=== PATIENT | female | born 1995 | race Caucasian/White ===

== ENCOUNTER 2017-01-28 14:36 | Inpatient (IN) | payer OTHER ==
[2017-01-28 21:45] VITALS: BMI 30.9
--- NOTE | 2017-01-28 22:08 | HP ---
CIWA Score - CIWA Score Nausea/Vomitin Muscle Tremors: 4-Moderate,w/Arms Extend Anxiety: 4-Mod. Anxious/Guarded Agitation: 4-Moderately Restless Paroxysmal Sweats: 3 Orientation: 1-Uncertain about Date Tacttile Disturbances: 3-Moderate Itch/Numb/Burn Auditory Disturbances: 2-Mild Harshness/Frighten Visual Disturbances: 2-Mild Sensitivity Headache: 3-Moderate CIWA-Ar Total Score: 29 Admission ROS BHS - HPI Chief Complaint: SEEKING DETOX TXMENT FOR BENZO DEPENDENCE Allergies/Adverse Reactions: Allergies Allergy/AdvReac Type Severity Reaction Status Date / Time No Known Allergies Allergy Verified 01/26/16 21:05 History of Present Illness: 22 Y.O FEMALE KNOW TO [facility] MMTP ADMITTED FOR DETOX TXMENT FOR XANAX DEPENDENCE. CLIENT IS PRESENTLY ON METHADONE 130 MG DAILY. LDM TODAY. Exam Limitations: No Limitations - Ebola screening Have you traveled outside of the country in the last 21 days: No Have you had contact with anyone from an Ebola affected area: No Have you been sick,other than usual withdrawal symptoms: No Do you have a fever: No - Review of Systems Constitutional: Chills, Malaise, Night Sweats, Changes in sleep EENT: reports: Dental Problems (BLEEDING GUMS) Respiratory: reports: No Symptoms reported Cardiac: reports: No Symptoms Reported GI: reports: Nausea : reports: No Symptoms Reported Musculoskeletal: reports: Joint Pain Integumentary: reports: No Symptoms Reported Neuro: reports: No Symptoms reported Endocrine: reports: No Symptoms Reported Hematology: reports: No Symptoms Reported Psychiatric: reports: Anxious, Depressed Other Systems: Reviewed and Negative Patient History - Patient Medical History Hx Anemia: No Hx Asthma: No Hx Chronic Obstructive Pulmonary Disease (COPD): No Hx Cancer: No Hx Cardiac Disorders: No Hx Congestive Heart Failure: No Hx Hypertension: No Hx Hypercholesterolemia: No Hx Pacemaker: No HX Cerebrovascular Accident: No Hx Seizures: No Hx Dementia: No Hx Diabetes: No Hx Gastrointestinal Disorders: No Hx Liver Disease: No Hx Genitourinary Disorders: No Hx Sexually Transmitted Disorders: No Hx Renal Disease (ESRD): No Hx Thyroid Disease: Yes (discontinued synthroid) Hx Human Immunodeficiency Virus (HIV): No Hx Hepatitis C: No Hx Depression: Yes Hx Suicide Attempt: No Hx Bipolar Disorder: No Hx Schizophrenia: No Other Medical History: ANXIETY - Patient Surgical History Past Surgical History: No Hx Neurologic Surgery: No Hx Cataract Extraction: No Hx Cardiac Surgery: No Hx Lung Surgery: No Hx Breast Surgery: No Hx Breast Biopsy: No Hx Abdominal Surgery: Yes (Gastric bypass in 2010) Hx Appendectomy: No Hx Cholecystectomy: No Hx Genitourinary Surgery: No Hx Section: No Hx Orthopedic Surgery: No Other Surgical History: Pt had excess skin removed from arms abd and breast., tonsylectomy Anesthesia Reaction: No - PPD History Previous Implant?: Yes Documented Results: Negative w/proof Implanted On Prior [facility] Admission?: Yes Date: 12/28/15 Results: 0 mm PPD to be Administered?: Yes - Reproductive History Patient is a Female of Child Bearing Age (11 -55 yrs old): Yes Last Menstrual Period: 06/29/16 [place] : [place] [facility] [place] - Smoking Cessation Smoking history: Current every day smoker Have you smoked in the past 12 months: Yes Aproximately how many cigarettes per day: 20 Cigars Per Day: 0 Hx Chewing Tobacco Use: No Initiated information on smoking cessation: Yes 'Breaking Loose' booklet given: 01/28/17 - Substance & Tx. History Hx Alcohol Use: No Hx Substance Use: Yes Substance Use Type: Marijuana, Tranquilizers (XANAX) Hx Substance Use Treatment: Yes ("[facility] [place]") - Substances Abused XANAX/ VALIUM Route: Oral Frequency: Daily Amount used: 20MG Age of first use: 20 Date of Last Use: 01/28/17 THC Route: Smoking Frequency: 1-2 times per week Amount used: 1 JOINT Age of first use: 17 Date of Last Use: 12/29/16 Family Disease History - Family Disease History Family Disease History: Diabetes: Grandparent, Father, Other: Mother (etoh/ BENZO) Admission Physical Exam BHS - Vital Signs Vital Signs: Vital Signs - 24 hr 01/28/17 21:36 Temperature 97.0 F L Pulse Rate 99 H Respiratory 20 Rate Blood Pressure 108/70 - Physical General Appearance: Yes: Appropriately Dressed, Mild Distress HEENTM: Yes: EOMI, Normocephalic, Normal Voice, Pharynx Normal Respiratory: Yes: Chest Non-Tender, Lungs Clear, Normal Breath Sounds, No Respiratory Distress, No Accessory Muscle Use Neck: Yes: No masses,lesions,Nodules, Supple, Trachea in good position Breast: Yes: Breast Exam Deferred Cardiology: Yes: Regular Rhythm, Regular Rate, S1, S2 Abdominal: Yes: Normal Bowel Sounds, Non Tender, Soft Genitourinary: Yes: Within Normal Limits Back: Yes: Normal Inspection Musculoskeletal: Yes: full range of Motion, Gait Steady, Other (C/O L KNEE PAIN S/P FALL 2 DAYS AGO) Extremities: Yes: Normal Capillary Refill, Normal Range of Motion, Non-Tender, Tremors Neurological: Yes: Alert, Motor Strength 5/5 Integumentary: Yes: Normal Color, Warm, Moist Lymphatic: Yes: Within Normal Limits - Diagnostic (1) Cannabis abuse Current Visit: Yes Status: Chronic (2) Nicotine dependence Current Visit: Yes Status: Chronic Qualifiers: Nicotine product type: cigarettes Substance use status: uncomplicated Qualified Code(s): F17.210 - Nicotine dependence, cigarettes, uncomplicated (3) Methadone maintenance therapy patient Current Visit: Yes Status: Chronic (4) Sedative, hypnotic or anxiolytic dependence with withdrawal, uncomplicated Current Visit: Yes Status: Chronic Cleared for Admission [facility] - Detox or Rehab [facility] Level of Care: Medically Managed Detox Regimen/Protocol: Librium [facility] Breath Alcohol Content Breath Alcohol Content: 0 Urine Pregancy Test - Result Urine Test Results: Negative- NO Line Present Urine Drug Screen - Results Urine Drug Screen Results: THC-Marijuana, BZO-Benzodiazepines, MTD-Methadone, TCA-Tricyclic Antidepress
[2017-01-28] MEDS ORDERED: guaiFENesin/D-METHORPHAN HB 10 ML UNIT-DOSE CUPS PO PRN (22:23)
[2017-01-28] MEDS ORDERED: IBUPROFEN 400 MG TABLET (FP) PO PRN (22:23)
[2017-01-28] MEDS ORDERED: MAGNESIUM HYDROX 2400MG/30ML ORAL SUSPENSION 30 ML CUP PO PRN (22:23)
[2017-01-28] MEDS ORDERED: MENTHOL/PHENOL 1 EACH UD MM PRN (22:23)
[2017-01-28] MEDS ORDERED: MAGNESIUM CITRATE 300 ML BOTTLE PO PRN (22:23)
[2017-01-28] MEDS ORDERED: P-EPHED 60MG/TRIPROLIDI 2.5MG TABLET PO PRN (22:23)
[2017-01-28] MEDS ORDERED: chlordiazePOXIDE HCL 25 MG CAPSULE PO PRN (22:23)
[2017-01-28] MEDS ORDERED: ACETAMINOPHEN 325 MG TABLET (FP) PO PRN (22:23)
[2017-01-28] MEDS ORDERED: MAG HYDROX/AL HYDROX/SIMETH 30 ML UNIT-DOSE CUP PO PRN (22:23)
[2017-01-28] MEDS ORDERED: LOPERAMIDE HCL 2 MG CAPSULE PO PRN (22:23)
[2017-01-28] MEDS ORDERED: diphenhydrAMINE HCL 50 MG CAPSULE PO PRN (22:23)
[2017-01-28] MEDS ORDERED: NICOTINE POLACRILEX 4 MG GUM BC PRN (22:23)
[2017-01-28] MEDS: chlordiazePOXIDE HCL 25 MG CAPSULE PO SCH (23:21)
[2017-01-28 23:26] LABS: URINE APPEARANCE CLEAR; URINE BILIRUBIN NEGATIVE (NEGATIVE); URINE BLOOD NEGATIVE (NEGATIVE); URINE COLOR YELLOW; URINE GLUCOSE (UA) NEGATIVE (NEGATIVE); URINE KETONE TRACE (NEGATIVE); URINE LEUK ESTERASE TRACE (NEGATIVE); URINE NITRITE NEGATIVE (NEGATIVE); URINE PROTEIN NEGATIVE (NEGATIVE); URINE UROBILINOGEN NEGATIVE E.U./dl (0.2-1.0)
[2017-01-28 23:28] LABS: URINE HYALINE CAST 13 /lpf; URINE MUCUS MANY; URINE RBC 3 /hpf (0-3); URINE WBC 5 /hpf (3-5)
[2017-01-29] MEDS: chlordiazePOXIDE HCL 25 MG CAPSULE PO SCH ×4 (06:29→22:24)
[2017-01-29] MEDS ORDERED: METHADONE HCL 10 MG TABLET PO ONE (09:06)
--- NOTE | 2017-01-29 09:08 | CONSULT ---
[facility] Psychiatric Consult - Data Date of interview: 01/29/17 Admission source: [facility] Identifying data: This is 22 years old female with psychiatric hospitalization history intoxicated with: Alcohol, Opioids, Xanax, Cannabis and Nicoptine Substance Abuse History: - Results. Urine Drug Screen Results: THC-Marijuana, BZO-Benzodiazepines, MTD-Methadone, TCA-Tricyclic Antidepress- Smoking Cessation. Smoking history: Current every day smoker. Have you smoked in the past 12 months: Yes. Aproximately how many cigarettes per day: 20. Cigars Per Day: 0. Hx Chewing Tobacco Use: No. Initiated information on smoking cessation : Yes. 'Breaking Loose' booklet given: 01/28/17. - Substance & Tx. History. Hx Alcohol Use: No. Hx Substance Use: Yes. Substance Use Type: Marijuana, Tranquilizers (XANAX). Hx Substance Use Treatment: Yes ("[facility]"). - Substances Abused. XANAX/ VALIUM. Route: Oral. Frequency: Daily. Amount used: 20MG. Age of first use: 20. Date of Last Use: 01/28/17. THC. Route : Smoking. Frequency: 1-2 times per week. Amount used: 1 JOINT. Age of first use: 17. Date of Last Use: 12/29/16 Medical History: Gastritis, MMTP 400mg per day Psychiatric History: Patient reportws history of Anxiety, Depression, Panic disorder, Personality disorder as well, reports most recent psychiatric admsision on 2017 at [facility] fro safety, reports taking prior to admsision: Seroquel 200mg po qhs. Zoloft 100mg po qhs. Trazodone 100 poqhs. Remeron 45mg po qhs Physical/Sexual Abuse/Trauma History: Denies Additional Comment: - Results. Urine Drug Screen Results: THC-Marijuana, BZO- Benzodiazepines, MTD-Methadone, TCA-Tricyclic Antidepress Mental Status Exam - Mental Status Exam Alert and Oriented to: Person Cognitive Function: Fair Patient Appearance: Unkempt Mood: Sad Affect: Flat Patient Behavior: Sedated Speech Pattern: Delayed Voice Loudness: Mildly Soft/Quiet Thought Process: Circumstantial Thought Disorder: Being Controlled Hallucinations: Denies Suicidal Ideation: Denies Homicidal Ideation: Denies Insight/Judgement: Fair Sleep: Difficulty falling asleep Appetite: Weight gain Muscle strength/Tone: Mild Hypotonicity Gait/Station: Shuffling Additional Comments: Seroquel 200mg po qhs. Zoloft 100mg po qhs. Trazodone 100 poqhs. Remeron 45mg po qhs Psychiatric Findings - Problem List ([place] 1, 2,3) (1) Cannabis abuse Current Visit: Yes Status: Chronic (2) Methadone maintenance therapy patient Current Visit: Yes Status: Chronic (3) Nicotine dependence Current Visit: Yes Status: Chronic Qualifiers: Nicotine product type: cigarettes Substance use status: uncomplicated Qualified Code(s): F17.210 - Nicotine dependence, cigarettes, uncomplicated (4) Sedative, hypnotic or anxiolytic dependence with withdrawal, uncomplicated Current Visit: Yes Status: Chronic (5) Alcohol dependence with uncomplicated withdrawal Current Visit: No Status: Chronic (6) Anxiety and depression Current Visit: No Status: Chronic (7) H/O gastric bypass Current Visit: No Status: Chronic (8) Opioid dependence with withdrawal Current Visit: No Status: Chronic (9) Panic attacks Current Visit: No Status: Chronic (10) Sedative, hypnotic, or anxiolytic withdrawal Current Visit: No Status: Chronic (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 Current Visit: No Status: Chronic (12) Substance-induced sleep disorder Current Visit: No Status: Chronic (13) Personality disorder Current Visit: No Status: Suspected (14) Drug-induced mood disorder Current Visit: Yes Status: Acute - Initial Treatment Plan Initial Treatment Plan: Seroquel 200mg po qhs. Zoloft 100mg po qhs. Trazodone 100 poqhs. Remeron 45mg po qhs
[2017-01-29] MEDS ORDERED: METHADONE 80 MG, METHADONE 20 MG PO ONE (09:20)
[2017-01-29] MEDS ORDERED: METHADONE HCL 40 MG DISPERSABLE TABLET ONE (09:38)
[2017-01-29] MEDS ORDERED: METHADONE HCL 10 MG TABLET ONE (09:39)
[2017-01-29 10:06] LABS: MEAN CELL VOLUME 78.7 fl (80-96); MEAN PLT VOLUME 7.6 fl (7.5-11.1); PLATELET COUNT 234 K/MM3 (134-434); RDW 17.7 % (11.6-15.6)
[2017-01-29 10:14] LABS: ALBUMIN 3.2 g/dl (3.4-5.0); ALK PHOS 64 U/L (45-117); ANION GAP 6 (8-16); BILIRUBIN,TOTAL 0.2 mg/dL (0.2-1.0); CALCIUM 8.4 mg/dL (8.5-10.1); CO2 30 mmol/L (21-32); COCKROFT - GAULT 161.1005; CREATININE 0.7 mg/dL (0.55-1.02); GLUCOSE,RANDOM 83 mg/dL (74-106); SGOT/AST 16 U/L (15-37); SGPT/ALT 18 U/L (12-78)
[2017-01-29] MEDS: PRENATAL VITAMINS W/ FOLIC ACID TABLET (FP) PO SCH (10:17)
[2017-01-29] MEDS: NICOTINE 21 MG/24 HOURS TOPICAL PATCH TD SCH (10:18)
[2017-01-29] MEDS ORDERED: ONDANSETRON *ODT* 4 MG TABLET SL PRN (11:23)
--- NOTE | 2017-01-29 11:23 | PN ---
S CIWA - CIWA Score Nausea/Vomitin-Mild Nausea/No Vomiting Muscle Tremors: 4-Moderate,w/Arms Extend Anxiety: 3 Agitation: 4-Moderately Restless Paroxysmal Sweats: 3 Orientation: 0-Oriented Tacttile Disturbances: 0-None Auditory Disturbances: 0-None Visual Disturbances: 0-None Headache: 1-Very Mild CIWA-Ar Total Score: 16 BHS Progress Note (SOAP) Subjective: body aches left knee pain sweats irritable agitation nausea Objective: 01/29/17 11:21 Vital Signs Temperature 98.2 F 01/29/17 09:44 Pulse Rate 79 01/29/17 09:44 Respiratory Rate 16 01/29/17 09:44 Blood Pressure 121/57 01/29/17 09:44 O2 Sat by Pulse Oximetry (%) Laboratory Tests 01/28/17 01/29/17 01/29/17 23:10 07:00 07:00 WBC 6.0 RBC 3.66 D Hgb 9.5 L D Hct 28.8 L D MCV 78.7 L MCHC 33.0 RDW 17.7 H Plt Count 234 D MPV 7.6 Sodium 142 Potassium 4.1 Chloride 106 Carbon Dioxide 30 Anion Gap 6 L BUN 16 Creatinine 0.7 Creat Clearance w eGFR > 60 Random Glucose 83 Calcium 8.4 L Total Bilirubin 0.2 D AST 16 D ALT 18 Alkaline Phosphatase 64 Total Protein 6.0 L D Albumin 3.2 L D Urine Color Yellow Urine Appearance Clear Urine pH 5.0 D Ur Specific [place] >= 1.030 H Urine Protein Negative Urine Glucose (UA) Negative Urine Ketones Trace H Urine Blood Negative Urine Nitrite Negative Urine Bilirubin Negative Urine Urobilinogen Negative Ur Leukocyte Esterase Trace H Urine RBC 3 Urine WBC 5 Ur Epithelial Cells Rare Hyaline Casts 13 Urine Mucus Many awake/alert ambulating no acute distress Assessment: 01/29/17 11:22 withdrawal sx Plan: continue detox increase fluids flexiril prn analgesic balm f/u knee x-ray. katja velazquez
[2017-01-29] MEDS: CYCLOBENZAPRINE HCL 10 MG TABLET (FP) PO PRN ×2 (12:05→21:41)
[2017-01-29] MEDS: hydrOXYzine PAMOATE 50 MG CAPSULE (FP) PO PRN (12:05)
[2017-01-29] MEDS: METHYL SALICYLATE/MENTHOL OINT 30 GM TUBE TP SCH ×2 (12:27→22:24)
--- NOTE | 2017-01-29 13:12 | EKG ---
Test Reason : Blood Pressure : / mmHG Vent. Rate : 072 BPM Atrial Rate : 072 BPM P-R Int : 154 ms QRS Dur : 086 ms QT Int : 436 ms P-R-T Axes : 033 048 045 degrees QTc Int : 477 ms NORMAL SINUS RHYTHM NORMAL ECG NO PREVIOUS ECGS AVAILABLE Confirmed by SHARON ANGELA MD ([id number]) on 01/29/2017 1:11:33 PM Referred By: Luis Vidales Confirmed By:SHARON ANGELA MD
[2017-01-29] MEDS: THIAMINE HCL 100 MG TABLET (FP) PO SCH (22:23)
[2017-01-29] MEDS: MIRTAZAPINE 15 MG TABLET (FP) PO SCH (22:23)
[2017-01-29] MEDS: traZODone HCL 100 MG TABLET (FP) PO SCH (22:24)
[2017-01-29] MEDS: SERTRALINE HCL 50 MG TABLET (FP) PO SCH (22:24)
[2017-01-29] MEDS: QUEtiapine FUMARATE 200 MG TABLET PO SCH (22:24)
[2017-01-30] MEDS ORDERED: METHADONE HCL 40 MG DISPERSABLE TABLET PO SCH (06:00)
[2017-01-30] MEDS ORDERED: METHADONE 80 MG, METHADONE 20 MG PO SCH (06:00)
[2017-01-30] MEDS ORDERED: METHADONE HCL 40 MG DISPERSABLE TABLET ONE (06:56)
[2017-01-30] MEDS ORDERED: METHADONE HCL 10 MG TABLET ONE (06:56)
[2017-01-30] MEDS: chlordiazePOXIDE HCL 25 MG CAPSULE PO SCH ×3 (06:59→17:18)
[2017-01-30] MEDS: METHADONE 80 MG, METHADONE 20 MG PO SCH (06:59)
[2017-01-30] MEDS: CYCLOBENZAPRINE HCL 10 MG TABLET (FP) PO PRN ×2 (07:10→14:05)
[2017-01-30] MEDS ORDERED: COLLOIDAL OATMEAL 1 BAR EACH TP PRN (09:46)
[2017-01-30] MEDS ORDERED: LIDOCAINE VISCOUS 2% ORAL/TOP 20 ML UNIT-DOSE CUP MM PRN (09:46)
[2017-01-30] MEDS: hydrOXYzine PAMOATE 50 MG CAPSULE (FP) PO PRN ×2 (10:32→14:04)
[2017-01-30] MEDS: PRENATAL VITAMINS W/ FOLIC ACID TABLET (FP) PO SCH (10:32)
[2017-01-30] MEDS: NICOTINE 21 MG/24 HOURS TOPICAL PATCH TD SCH (10:33)
[2017-01-30] MEDS: METHYL SALICYLATE/MENTHOL OINT 30 GM TUBE TP SCH ×2 (10:34→22:38)
--- NOTE | 2017-01-30 12:05 | PN ---
S CIWA - CIWA Score Nausea/Vomitin Muscle Tremors: 4-Moderate,w/Arms Extend Anxiety: 4-Mod. Anxious/Guarded Agitation: 3 Paroxysmal Sweats: 2 Orientation: 0-Oriented Tacttile Disturbances: 0-None Auditory Disturbances: 0-None Visual Disturbances: 2-Mild Sensitivity Headache: 2-Mild CIWA-Ar Total Score: 22 S Progress Note (SOAP) Subjective: Tremors, H/A, Vomiting, Interrupted Sleep, Body Aches, Sweating. Pt. reports discomfort on Right upper side of teeth noting a recent history of Root Canal in area. Objective: PT. A & O X 3, OBSERVED AMBULATING ON UNIT. NO REDNESS, SWELLING, DISCHARGE, OR SIGNS OF INFECTION NOTED ON RIGHT SIDE OF UPPER MOUTH OR ON FACE. CONTINUE TO MONITOR. 01/30/17 12:49 Vital Signs Temperature 96.3 F L 01/30/17 10:00 Pulse Rate 102 H 01/30/17 10:00 Respiratory Rate 20 01/30/17 10:00 Blood Pressure 109/65 01/30/17 10:00 O2 Sat by Pulse Oximetry (%) Laboratory Tests 01/28/17 01/28/17 01/29/17 07:00 23:10 07:00 WBC 6.0 RBC 3.66 D Hgb 9.5 L D Hct 28.8 L D MCV 78.7 L MCHC 33.0 RDW 17.7 H Plt Count 234 D MPV 7.6 Sodium Potassium Chloride Carbon Dioxide Anion Gap BUN Creatinine Creat Clearance w eGFR Random Glucose Calcium Total Bilirubin AST ALT Alkaline Phosphatase Total Protein Albumin Urine Color Yellow Urine Appearance Clear Urine pH 5.0 D Ur Specific [place] >= 1.030 H Urine Protein Negative Urine Glucose (UA) Negative Urine Ketones Trace H Urine Blood Negative Urine Nitrite Negative Urine Bilirubin Negative Urine Urobilinogen Negative Ur Leukocyte Esterase Trace H Urine RBC 3 Urine WBC 5 Ur Epithelial Cells Rare Hyaline Casts 13 Urine Mucus Many RPR Titer Hepatitis C Antibody <0.1 01/29/17 01/29/17 07:00 07:00 WBC RBC Hgb Hct MCV MCHC RDW Plt Count MPV Sodium 142 Potassium 4.1 Chloride 106 Carbon Dioxide 30 Anion Gap 6 L BUN 16 Creatinine 0.7 Creat Clearance w eGFR > 60 Random Glucose 83 Calcium 8.4 L Total Bilirubin 0.2 D AST 16 D ALT 18 Alkaline Phosphatase 64 Total Protein 6.0 L D Albumin 3.2 L D Urine Color Urine Appearance Urine pH Ur Specific [place] Urine Protein Urine Glucose (UA) Urine Ketones Urine Blood Urine Nitrite Urine Bilirubin Urine Urobilinogen Ur Leukocyte Esterase Urine RBC Urine WBC Ur Epithelial Cells Hyaline Casts Urine Mucus RPR Titer Nonreactive Hepatitis C Antibody LABS NOTED. 01/30/17 16:19 Assessment: 01/30/17 12:03 WITHDRAWAL SYMPTOMS. Plan: CONTINUE DETOX. FEOSOL, 325 MG, TID FOR LOW CBC VALUES. PRN ZOFRAN SL FOR VOMITING.
[2017-01-30] MEDS: FERROUS SO4 325 MG TABLET (FP) PO SCH (17:18)
[2017-01-30] MEDS: SERTRALINE HCL 50 MG TABLET (FP) PO SCH (22:34)
[2017-01-30] MEDS: THIAMINE HCL 100 MG TABLET (FP) PO SCH (22:34)
[2017-01-30] MEDS: MIRTAZAPINE 15 MG TABLET (FP) PO SCH (22:34)
[2017-01-30] MEDS: traZODone HCL 100 MG TABLET (FP) PO SCH (22:34)
[2017-01-30] MEDS: chlordiazePOXIDE 5 MG CAPSULE PO SCH (22:35)
[2017-01-30] MEDS: QUEtiapine FUMARATE 200 MG TABLET PO SCH (22:35)
[2017-01-31] MEDS ORDERED: METHADONE HCL 10 MG TABLET ONE (03:20)
[2017-01-31] MEDS ORDERED: METHADONE HCL 40 MG DISPERSABLE TABLET ONE (03:20)
[2017-01-31] MEDS: chlordiazePOXIDE 5 MG CAPSULE PO SCH ×3 (06:32→17:51)
[2017-01-31] MEDS: METHADONE 80 MG, METHADONE 20 MG PO SCH (06:34)
[2017-01-31] MEDS: CYCLOBENZAPRINE HCL 10 MG TABLET (FP) PO PRN ×2 (06:37→22:51)
[2017-01-31] MEDS: PRENATAL VITAMINS W/ FOLIC ACID TABLET (FP) PO SCH (10:38)
[2017-01-31] MEDS: hydrOXYzine PAMOATE 50 MG CAPSULE (FP) PO PRN ×2 (10:39→17:52)
[2017-01-31] MEDS: METHYL SALICYLATE/MENTHOL OINT 30 GM TUBE TP SCH ×2 (10:39→23:29)
[2017-01-31] MEDS: FERROUS SO4 325 MG TABLET (FP) PO SCH ×3 (10:39→17:51)
[2017-01-31] MEDS: NICOTINE 21 MG/24 HOURS TOPICAL PATCH TD SCH (10:40)
--- NOTE | 2017-01-31 18:32 | PN ---
BHS Progress Note (SOAP) Subjective: Tremors, H/A, Sweating, Body Aches, Stomach Cramping, Interrupted Sleep. Objective: PT. A & O X 3, OBSERVED AMBULATING ON UNIT. 01/31/17 18:29 Vital Signs Temperature 97.9 F 01/31/17 18:27 Pulse Rate 73 01/31/17 18:27 Respiratory Rate 18 01/31/17 18:27 Blood Pressure 100/60 01/31/17 18:27 O2 Sat by Pulse Oximetry (%) Laboratory Tests 01/28/17 01/28/17 01/29/17 07:00 23:10 07:00 WBC 6.0 RBC 3.66 D Hgb 9.5 L D Hct 28.8 L D MCV 78.7 L MCHC 33.0 RDW 17.7 H Plt Count 234 D MPV 7.6 Sodium Potassium Chloride Carbon Dioxide Anion Gap BUN Creatinine Creat Clearance w eGFR Random Glucose Calcium Total Bilirubin AST ALT Alkaline Phosphatase Total Protein Albumin Urine Color Yellow Urine Appearance Clear Urine pH 5.0 D Ur Specific [place] >= 1.030 H Urine Protein Negative Urine Glucose (UA) Negative Urine Ketones Trace H Urine Blood Negative Urine Nitrite Negative Urine Bilirubin Negative Urine Urobilinogen Negative Ur Leukocyte Esterase Trace H Urine RBC 3 Urine WBC 5 Ur Epithelial Cells Rare Hyaline Casts 13 Urine Mucus Many RPR Titer Hepatitis C Antibody <0.1 01/29/17 01/29/17 07:00 07:00 WBC RBC Hgb Hct MCV MCHC RDW Plt Count MPV Sodium 142 Potassium 4.1 Chloride 106 Carbon Dioxide 30 Anion Gap 6 L BUN 16 Creatinine 0.7 Creat Clearance w eGFR > 60 Random Glucose 83 Calcium 8.4 L Total Bilirubin 0.2 D AST 16 D ALT 18 Alkaline Phosphatase 64 Total Protein 6.0 L D Albumin 3.2 L D Urine Color Urine Appearance Urine pH Ur Specific [place] Urine Protein Urine Glucose (UA) Urine Ketones Urine Blood Urine Nitrite Urine Bilirubin Urine Urobilinogen Ur Leukocyte Esterase Urine RBC Urine WBC Ur Epithelial Cells Hyaline Casts Urine Mucus RPR Titer Nonreactive Hepatitis C Antibody LABS NOTED. Assessment: 01/31/17 18:31 WITHDRAWAL SYMPTOMS. Plan: CONTINUE DETOX.
[2017-01-31] MEDS: QUEtiapine FUMARATE 200 MG TABLET PO SCH (22:50)
[2017-01-31] MEDS: SERTRALINE HCL 50 MG TABLET (FP) PO SCH (22:50)
[2017-01-31] MEDS: chlordiazePOXIDE HCL 10 MG CAPSULE PO SCH (22:50)
[2017-01-31] MEDS: MIRTAZAPINE 15 MG TABLET (FP) PO SCH (22:50)
[2017-01-31] MEDS: THIAMINE HCL 100 MG TABLET (FP) PO SCH (22:50)
[2017-01-31] MEDS: traZODone HCL 100 MG TABLET (FP) PO SCH (22:50)
[2017-02-01] MEDS ORDERED: METHADONE HCL 10 MG TABLET ONE (02:30)
[2017-02-01] MEDS ORDERED: METHADONE HCL 40 MG DISPERSABLE TABLET ONE (02:30)
[2017-02-01] MEDS: chlordiazePOXIDE HCL 10 MG CAPSULE PO SCH ×2 (06:23→10:16)
[2017-02-01] MEDS: METHADONE 80 MG, METHADONE 20 MG PO SCH (06:28)
[2017-02-01] MEDS: CYCLOBENZAPRINE HCL 10 MG TABLET (FP) PO PRN (06:30)
[2017-02-01] MEDS: FERROUS SO4 325 MG TABLET (FP) PO SCH (07:10)
[2017-02-01] MEDS: hydrOXYzine PAMOATE 50 MG CAPSULE (FP) PO PRN ×2 (08:03→10:16)
[2017-02-01] MEDS: PRENATAL VITAMINS W/ FOLIC ACID TABLET (FP) PO SCH (09:57)
[2017-02-01] MEDS: METHYL SALICYLATE/MENTHOL OINT 30 GM TUBE TP SCH (10:16)
--- NOTE | 2017-02-01 10:40 | DS ---
[facility] Detox Discharge Summary Admission Date: 01/28/17 Discharge Date: 02/01/17 - History Present History: Alcohol Dependence, Cannabis Dependence, Sedative Dependence, MMTP Pertinent Past History: panic disorder Anemia - Physical Exam Results Vital Signs: Vital Signs Temperature 97.7 F 02/01/17 06:39 Pulse Rate 88 02/01/17 06:39 Respiratory Rate 18 02/01/17 06:39 Blood Pressure 120/72 02/01/17 06:39 O2 Sat by Pulse Oximetry (%) Pertinent Admission Physical Exam Findings: Withdrawal sx Laboratory Last Values WBC 6.0 K/mm3 (4.0-10.0) 01/29/17 07:00 RBC 3.66 M/mm3 (3.60-5.2) D 01/29/17 07:00 Hgb 9.5 GM/dL (10.7-15.3) L D 01/29/17 07:00 Hct 28.8 % (32.4-45.2) L D 01/29/17 07:00 MCV 78.7 fl (80-96) L 01/29/17 07:00 MCHC 33.0 g/dl (32.0-36.0) 01/29/17 07:00 RDW 17.7 % (11.6-15.6) H 01/29/17 07:00 Plt Count 234 K/MM3 (134-434) D 01/29/17 07:00 MPV 7.6 fl (7.5-11.1) 01/29/17 07:00 Sodium 142 mmol/L (136-145) 01/29/17 07:00 Potassium 4.1 mmol/L (3.5-5.1) 01/29/17 07:00 Chloride 106 mmol/L (98-107) 01/29/17 07:00 Carbon Dioxide 30 mmol/L (21-32) 01/29/17 07:00 Anion Gap 6 (8-16) L 01/29/17 07:00 BUN 16 mg/dL (7-18) 01/29/17 07:00 Creatinine 0.7 mg/dL (0.55-1.02) 01/29/17 07:00 Creat Clearance w eGFR > 60 (>60) 01/29/17 07:00 Random Glucose 83 mg/dL (74-106) 01/29/17 07:00 Calcium 8.4 mg/dL (8.5-10.1) L 01/29/17 07:00 Total Bilirubin 0.2 mg/dL (0.2-1.0) D 01/29/17 07:00 AST 16 U/L (15-37) D 01/29/17 07:00 ALT 18 U/L (12-78) 01/29/17 07:00 Alkaline Phosphatase 64 U/L (45-117) 01/29/17 07:00 Total Protein 6.0 g/dl (6.4-8.2) L D 01/29/17 07:00 Albumin 3.2 g/dl (3.4-5.0) L D 01/29/17 07:00 Urine Color Yellow 01/28/17 23:10 Urine Appearance Clear 01/28/17 23:10 Urine pH 5.0 (5.0-8.0) D 01/28/17 23:10 Ur Specific [place] >= 1.030 (1.005-1.025) H 01/28/17 23:10 Urine Protein Negative (NEGATIVE) 01/28/17 23:10 Urine Glucose (UA) Negative (NEGATIVE) 01/28/17 23:10 Urine Ketones Trace (NEGATIVE) H 01/28/17 23:10 Urine Blood Negative (NEGATIVE) 01/28/17 23:10 Urine Nitrite Negative (NEGATIVE) 01/28/17 23:10 Urine Bilirubin Negative (NEGATIVE) 01/28/17 23:10 Urine Urobilinogen Negative E.U./dl (0.2-1.0) 01/28/17 23:10 Ur Leukocyte Esterase Trace (NEGATIVE) H 01/28/17 23:10 Urine RBC 3 /hpf (0-3) 01/28/17 23:10 Urine WBC 5 /hpf (3-5) 01/28/17 23:10 Ur Epithelial Cells Rare /hpf (FEW) 01/28/17 23:10 Hyaline Casts 13 /lpf 01/28/17 23:10 Urine Mucus Many 01/28/17 23:10 RPR Titer Nonreactive (NONREACTIVE) 01/29/17 07:00 Hepatitis C Antibody <0.1 s/co ratio (0.0-0.9) 01/28/17 07:00 labs noted,on feosol - Treatment Hospital Course: Detox Protocol Followed, Detoxed Safely, Responded well, Discharged Condition Good, Rehab Referral Accepted Patient has Accepted a Rehab Referral to: [facility] - Medication Discharge Medications: Ambulatory Orders Mirtazapine [Remeron -] 45 mg PO HS #30 tablet 01/29/17 Quetiapine Fumarate [Seroquel -] 200 mg PO HS #30 tab 01/29/17 Sertraline HCl [Zoloft -] 100 mg PO HS #30 tablet 01/29/17 Trazodone HCl [Desyrel -] 100 mg PO HS #30 tablet 01/29/17 - Diagnosis (1) Drug-induced mood disorder Current Visit: Yes Status: Acute (2) Cannabis abuse Current Visit: Yes Status: Chronic (3) Methadone maintenance therapy patient Current Visit: Yes Status: Chronic (4) Nicotine dependence Current Visit: Yes Status: Chronic Qualifiers: Nicotine product type: cigarettes Substance use status: uncomplicated Qualified Code(s): F17.210 - Nicotine dependence, cigarettes, uncomplicated (5) Sedative, hypnotic or anxiolytic dependence with withdrawal, uncomplicated Current Visit: Yes Status: Chronic (6) Alcohol dependence with uncomplicated withdrawal Current Visit: Yes Status: Chronic (7) Insomnia Current Visit: Yes Status: Chronic Qualifiers: Insomnia type: unspecified Qualified Code(s): G47.00 - Insomnia, unspecified (8) Panic attacks Current Visit: No Status: Chronic (9) Sedative, hypnotic, or anxiolytic withdrawal Current Visit: Yes Status: Chronic (10) Substance-induced anxiety disorder Current Visit: No Status: Chronic (11) Substance-induced sleep disorder Current Visit: No Status: Chronic - AMA Did Patient Leave Against Medical Advice: No
[2017-02-01 11:09] VITALS: BP 119/81; PULSE 117; TEMP 98.4
[2017-02-01] MEDS: NICOTINE 21 MG/24 HOURS TOPICAL PATCH TD SCH (11:33)
== END 2017-02-01 10:16 | disposition home or self-care (01) | DRG 773 ==
LOC: YASAS 14:36 → Y6N 22:40
PROVIDERS: ADMIT Internal Medicine Addiction Medicine; ATTEND Internal Medicine Addiction Medicine
PROC: HZ2ZZZZ Detoxification Services for Substance Abuse Treatment (ICD-10-PCS; principal; 2017-01-28)
DX: F13.230 Sedative, hypnotic or anxiolytic dependence with withdrawal, uncomplicated (principal); F11.20 Opioid dependence, uncomplicated; F10.230 Alcohol dependence with withdrawal, uncomplicated; F12.10 Cannabis abuse, uncomplicated; F17.210 Nicotine dependence, cigarettes, uncomplicated; F41.8 Other specified anxiety disorders; F60.9 Personality disorder, unspecified; F41.0 Panic disorder [episodic paroxysmal anxiety]; F19.24 Other psychoactive substance dependence with psychoactive substance-induced mood disorder; F19.280 Other psychoactive substance dependence with psychoactive substance-induced anxiety disorder; F19.282 Other psychoactive substance dependence with psychoactive substance-induced sleep disorder; G47.00 Insomnia, unspecified; Z98.84 Bariatric surgery status
CPT/HCPCS: 36415; 73564-TC-LT; 80053; 81003; 81015; 85027; 86593; 86803; 93005; 93010

== ENCOUNTER 2017-03-28 11:36 | Emergency (ER) | payer SELFPAY ==
[2017-03-28 11:47] VITALS: BP 108/72; PULSE 84; TEMP 98; BMI 30.5
--- NOTE | 2017-03-28 12:35 | PDOC ---
History of Present Illness - General Chief Complaint: RX Refill Stated Complaint: MISSED DOSAGE/ PCP SENT Time Seen by Provider: 03/28/17 12:11 History Source: Patient Exam Limitations: No Limitations - History of Present Illness Initial Comments: 03/28/17 12:35 Patient belongs to the [facility] methadone maintenance program, [facility] with her very busy schedule this week missed her morning medication dispensing of methadone and clinic was closed. Patient was encouraged to come to the emergency department for medication administration. Fevers, cough, shakiness nausea vomiting. States is taking to detox from a high dose of medication status post surgery 2 years ago 03/28/17 12:37 03/28/17 14:39 Timing/Duration: unsure Associated Symptoms: reports: denies symptoms Past History - Travel Traveled outside of the country in the last 30 days: No Close contact w/someone who was outside of country & ill: No - Past Medical History Allergies/Adverse Reactions: Allergies Allergy/AdvReac Type Severity Reaction Status Date / Time NSAIDS (Non-Steroidal AdvReac Verified 03/28/17 11:39 Anti-Inflamma Home Medications: Ambulatory Orders Methadone [Dolophine -] 5 mg PO ASDIR 03/28/17 Anemia: No Asthma: No Cancer: No Cardiac Disorders: No CVA: No COPD: No CHF: No Dementia: No Diabetes: No GI Disorders: No Disorders: No HTN: No Hypercholesterolemia: No Kidney Stones: No Liver Disease: No Suicide Attempt (Hx): No Seizures: No Thyroid Disease: Yes (HYPO) - Surgical History Abdominal Surgery: Yes (Gastric bypass in 2011) Appendectomy: No Cardiac Surgery: No Cholecystectomy: No Gastric Stapling: Yes (GASTRIC SLEEVE) Lung Surgery: No Neurologic Surgery: No Orthopedic Surgery: No - Reproductive History PID: No - Psycho/Social/Smoking Cessation Hx Anxiety: Yes Suicidal Ideation: No Smoking History: Current every day smoker Have you smoked in the past 12 months: Yes Number of Cigarettes Smoked Daily: 1 Cigars Per Day: 0 Information on smoking cessation initiated: No 'Breaking Loose' booklet given: 01/28/17 Hx Alcohol Use: No Drug/Substance Use Hx: Yes Substance Use Type: Marijuana, Tranquilizers (XANAX) Hx Substance Use Treatment: Yes Review of Systems - Review of Systems Able to Perform ROS?: Yes Is the patient limited Khmer proficient: Yes Constitutional: Yes: See HPI. No: Symptoms Reported, Loss of Appetite, Malaise HEENTM: Yes: See HPI. No: Symptoms Reported Respiratory: No: Symptoms reported Musculoskeletal: Yes: Symptoms Reported, See HPI, Back Pain All Other Systems: Reviewed and Negative *Physical Exam - Vital Signs Last Vital Signs Temp Pulse Resp BP Pulse Ox 98 F 84 19 108/72 99 03/28/17 11:39 03/28/17 11:39 03/28/17 11:39 03/28/17 11:39 03/28/17 11:39 - Physical Exam General Appearance: Yes: Nourished, Appropriately Dressed. No: Apparent Distress HEENT: positive: YULISA, Normal ENT Inspection, Normal Voice, TMs Normal, Pharynx Normal Neck: positive: Supple. negative: Tender Respiratory/Chest: positive: Lungs Clear, Normal Breath Sounds Gastrointestinal/Abdominal: positive: Soft. negative: Tender Musculoskeletal: positive: Normal Inspection. negative: Vertebral Tenderness Extremity: positive: Normal Capillary Refill, Normal Inspection, Normal Range of Motion Integumentary: positive: Dry, Warm, Pale Neurologic: positive: steel pickler II-XII NML intact, Fully Oriented, Alert, Normal Mood/ Affect, Normal Response, Motor Strength 5/5 Medical Decision Making - Medical Decision Making 03/28/17 12:40 discussed case with Selam Stoner Line Helper- 03/28/17 14:02 second call to [facility] = [phone] to [facility] animal caretaker supervisor still unable to identify treatment of pateint at methadone clinic. 03/28/17 14:27 Third call, unable to speak to [facility] animal caretaker supervisor therefore we will move forward and give patient half dose requested 50 mg which has now been dispensed and given to patient. We will discuss this dosing with animal caretaker supervisor so she may document the treatment today. Reviewed necessity of patient receiving methadone at clinic to avoid any future mis management 03/28/17 14:28 03/28/17 14:59 [facility] return phone call to verify methadone. Patient has been discharged after her 50 mg dosage. [facility] animal caretaker supervisor at [facility] understands half dose was given today and will document same in clinic tomorrow morning. *DC/Admit/Observation/Transfer Diagnosis at time of Disposition: Methadone use - Discharge Dispostion Disposition: HOME Condition at time of disposition: Stable Admit: No - Referrals Referrals: Tanisha Rosario, STATION MECHANIC HELPER [Primary Care Provider] - - Patient Instructions Additional Instructions: DO NOT MISS METHADONE TREAMENT = YOU HAVE BEEN GIVEN 1/2 DOSE OF 50MG TODAY UNABLE TO VERIFY CORRECT DOING VIA METHADONE PROGRAM AT [facility] - Post Discharge Activity Work/School Note: Back to Work
[2017-03-28] MEDS ORDERED: METHADONE HCL 10 MG TABLET PO ONE ×2 (14:01→14:15)
== END 2017-03-28 14:54 | disposition home or self-care (01) ==
LOC: JERFT 11:36
DX: F11.20 Opioid dependence, uncomplicated (principal)
CPT/HCPCS: 99281-25

== ENCOUNTER 2017-05-17 22:41 | Inpatient (IN) | payer OTHER ==
--- NOTE | 2017-05-17 23:07 | HP ---
CIWA Score - CIWA Score Nausea/Vomitin-No Nausea/No Vomiting Muscle Tremors: 5 Anxiety: 4-Mod. Anxious/Guarded Agitation: 4-Moderately Restless Paroxysmal Sweats: 1-Minimal Palms Moist Orientation: 3-Disoriented Date>2 days Tacttile Disturbances: 1-Very Mild Itch/Numbness Auditory Disturbances: 0-None Visual Disturbances: 2-Mild Sensitivity Headache: 0-None Present CIWA-Ar Total Score: 20 Admission ROS BHS - HPI Chief Complaint: SEEKING DETOX FOR HEROIN/BENZO/ALCOHOLISM Allergies/Adverse Reactions: Allergies Allergy/AdvReac Type Severity Reaction Status Date / Time No Known Allergies Allergy Verified 05/18/17 01:38 History of Present Illness: 22 Y.O FEMALE KNOWN TO [facility] PRESENTS FOR DETOX FOR BENZO DEPENDENCE. SHE ALSO STATES SHE USES HEROIN BUT IS CURRENTLY ON MMTP BUT DOES NOT RECALL HER DOSAGE. ATTENDS MMTP HERE. REPORTS ALCOHOL BINGING FOR PAST 3 WEEKS. C/O TOOTH INFECTION STARTED ON AMOXICILLIN DAY 10/14. PRESENTS WITH RX BOTTLE AND REMAINDER OF PILLS. STATES LAST DETOX SERVICES 2 MONTHS AGO Exam Limitations: No Limitations - Ebola screening Have you traveled outside of the country in the last 21 days: No Have you had contact with anyone from an Ebola affected area: No Have you been sick,other than usual withdrawal symptoms: No Do you have a fever: No - Review of Systems Constitutional: Chills, Loss of Appetite, Malaise, Night Sweats EENT: reports: Dental Problems, Other (TOOTH ACHE) Respiratory: reports: No Symptoms reported Cardiac: reports: No Symptoms Reported GI: reports: Diarrhea, Poor Appetite, Vomiting : reports: No Symptoms Reported Musculoskeletal: reports: Joint Pain Integumentary: reports: No Symptoms Reported Neuro: reports: No Symptoms reported Endocrine: reports: No Symptoms Reported Hematology: reports: No Symptoms Reported Psychiatric: reports: Anxious Other Systems: Reviewed and Negative Patient History - Patient Medical History Hx Anemia: No Hx Asthma: No Hx Chronic Obstructive Pulmonary Disease (COPD): No Hx Cancer: No Hx Cardiac Disorders: No Hx Congestive Heart Failure: No Hx Hypertension: No Hx Hypercholesterolemia: No Hx Pacemaker: No HX Cerebrovascular Accident: No Hx Seizures: No Hx Dementia: No Hx Diabetes: No Hx Gastrointestinal Disorders: No Hx Liver Disease: No Hx Genitourinary Disorders: No Hx Sexually Transmitted Disorders: No Hx Renal Disease (ESRD): No Hx Thyroid Disease: Yes (HYPO) Hx Human Immunodeficiency Virus (HIV): No Hx Hepatitis C: No Hx Depression: Yes (NON COMPLAINT W/ MEDS) Hx Suicide Attempt: No Hx Bipolar Disorder: No Hx Schizophrenia: No Other Medical History: ANXIETY - Patient Surgical History Past Surgical History: No Hx Neurologic Surgery: No Hx Cataract Extraction: No Hx Cardiac Surgery: No Hx Lung Surgery: No Hx Breast Surgery: No Hx Breast Biopsy: No Hx Abdominal Surgery: Yes (Gastric bypass in 2010) Hx Appendectomy: No Hx Cholecystectomy: No Hx Genitourinary Surgery: No Hx Section: No Hx Orthopedic Surgery: No Other Surgical History: Pt had excess skin removed from arms abd and breast., tonsylectomy Anesthesia Reaction: No - PPD History Previous Implant?: Yes Documented Results: Negative w/proof Implanted On Prior [facility] Admission?: Yes Date: 01/30/17 Results: 0 mm PPD to be Administered?: No - Reproductive History Patient is a Female of Child Bearing Age (11 -55 yrs old): Yes Last Menstrual Period: 06/29/16 LMP comment: IRREG MENSES Patient : No (NEG UHCG NOTED) - Smoking Cessation Smoking history: Current every day smoker Have you smoked in the past 12 months: Yes Aproximately how many cigarettes per day: 20 Cigars Per Day: 0 Hx Chewing Tobacco Use: No Initiated information on smoking cessation: Yes 'Breaking Loose' booklet given: 05/17/17 - Substance & Tx. History Hx Alcohol Use: Yes Hx Substance Use: Yes Substance Use Type: Alcohol, Heroin, Tranquilizers (BENZO) Hx Substance Use Treatment: Yes ([facility]) - Substances Abused XANAX Route: Oral Frequency: Daily Amount used: 40 MG Age of first use: 20 Date of Last Use: 05/17/17 VALIUM Route: Oral Frequency: Daily Amount used: 5MG Age of first use: 20 Date of Last Use: 05/17/17 HEROIN Route: Inhalation Frequency: Daily Amount used: 3 BAGS Age of first use: 22 Date of Last Use: 05/17/17 THC Route: Oral Frequency: Daily Amount used: 1 JOINT Age of first use: 17 Date of Last Use: 05/17/17 LIQUOR Route: Oral Frequency: Daily Amount used: 1/2 PINT Age of first use: 22 (3 WEEKS AGO STARTED) Date of Last Use: 05/16/17 Family Disease History - Family Disease History Family Disease History: Diabetes: Grandparent, Father, Other: Mother (etoh/ BENZO) Admission Physical Exam [facility] - Physical General Appearance: Yes: Appropriately Dressed, Mild Distress, Tremorous, Anxious HEENTM: Yes: EOMI, Normal Voice, YULISA, Pharynx Normal Respiratory: Yes: Chest Non-Tender, Lungs Clear, Normal Breath Sounds, No Respiratory Distress, No Accessory Muscle Use Neck: Yes: No masses,lesions,Nodules, Supple, Trachea in good position Breast: Yes: Breast Exam Deferred Cardiology: Yes: Regular Rhythm, S1, S2, Tachycardia Abdominal: Yes: Normal Bowel Sounds, Non Tender, Soft Genitourinary: Yes: Within Normal Limits Back: Yes: Normal Inspection Musculoskeletal: Yes: full range of Motion, Gait Steady Extremities: Yes: Tremors Neurological: Yes: Fully Oriented, Alert, Motor Strength 5/5 Integumentary: Yes: Warm, Moist Lymphatic: Yes: Within Normal Limits - Diagnostic (1) Alcohol dependence with uncomplicated withdrawal Current Visit: Yes Status: Acute (2) Cannabis abuse Current Visit: Yes Status: Chronic (3) Methadone maintenance therapy patient Current Visit: Yes Status: Chronic (4) Nicotine dependence Current Visit: Yes Status: Chronic Qualifiers: Nicotine product type: cigarettes Substance use status: uncomplicated Qualified Code(s): F17.210 - Nicotine dependence, cigarettes, uncomplicated (5) Opioid dependence with withdrawal Current Visit: Yes Status: Chronic (6) Sedative, hypnotic, or anxiolytic withdrawal Current Visit: Yes Status: Chronic (7) Tooth infection Current Visit: Yes Status: Acute Cleared for Admission [facility] - Detox or Rehab [facility] Level of Care: Medically Managed Detox Regimen/Protocol: Librium (PT PREFERS) [facility] Breath Alcohol Content Breath Alcohol Content: 0 Vital Signs - Vital Signs Vital Signs Refused: No Temperature: 98.9 F Temperature Source: Oral Pulse Rate: 100 Respiratory Rate: 22 Blood Pressure: 100/53 BP Location: Left Arm Blood Pressure Position: Sitting - Height Height: 5 ft 4 in - Weight Weight: 80.739 kg Weight Measurement Method: Standing Scale Body Mass Index (BMI): 30.5 Urine Pregancy Test - Test Device Lot Number: [id number] Expiration Date: 12/05/18 - Control Horizontal Line in Upper Control Window?: Yes - Result Urine Test Results: Negative- NO Line Present Urine Drug Screen - Test Device Lot Number: [id number] Expiration Date: 02/04/19 - Control Is Test Valid: Yes - Results Drug Screen Negative: No Urine Drug Screen Results: THC-Marijuana, OPI-Opiates, BZO-Benzodiazepines, MTD- Methadone
[2017-05-17 23:39] VITALS: BMI 30.5
[2017-05-17] MEDS ORDERED: LOPERAMIDE HCL 2 MG CAPSULE PO PRN (23:40)
[2017-05-17] MEDS ORDERED: MENTHOL/PHENOL 1 EACH UD MM PRN (23:40)
[2017-05-17] MEDS ORDERED: MAG HYDROX/AL HYDROX/SIMETH 30 ML UNIT-DOSE CUP PO PRN (23:40)
[2017-05-17] MEDS ORDERED: MAGNESIUM CITRATE 300 ML BOTTLE PO PRN (23:40)
[2017-05-17] MEDS ORDERED: guaiFENesin/D-METHORPHAN HB 10 ML UNIT-DOSE CUPS PO PRN (23:40)
[2017-05-17] MEDS ORDERED: IBUPROFEN 400 MG TABLET (FP) PO PRN (23:40)
[2017-05-17] MEDS ORDERED: MAGNESIUM HYDROX 2400MG/30ML ORAL SUSPENSION 30 ML CUP PO PRN (23:40)
[2017-05-17] MEDS ORDERED: P-EPHED 60MG/TRIPROLIDI 2.5MG TABLET PO PRN (23:40)
[2017-05-18] MEDS ORDERED: PNEUMOC 13-VAL CONJ-DIP CRM/PF 0.5 ML DISP.SYRIN IM ONE (00:52)
[2017-05-18] MEDS: diphenhydrAMINE HCL 50 MG CAPSULE PO PRN (01:15)
[2017-05-18] MEDS: chlordiazePOXIDE HCL 25 MG CAPSULE PO SCH ×5 (01:15→22:38)
[2017-05-18] MEDS ORDERED: LIDOCAINE VISCOUS 2% ORAL/TOP 20 ML UNIT-DOSE CUP MM PRN (03:04)
[2017-05-18] MEDS: IBUPROFEN 600 MG TABLET (FP) PO PRN ×2 (03:05→09:42)
[2017-05-18] MEDS ORDERED: METHADONE HCL 10 MG TABLET PO SCH (07:30)
[2017-05-18] MEDS: AMOXICILLIN 500 MG CAPSULE (FP) PO SCH ×3 (07:57→22:38)
--- NOTE | 2017-05-18 08:24 | CONSULT ---
[facility] Psychiatric Consult - Data Date of interview: 05/18/17 Admission source: [facility] Identifying data: This is 22 years old female with no psychiatric hospitalization history intoxicated with: Alcohol, Cannabis, Opioids, Xanax and Nicotine Substance Abuse History: - Smoking Cessation. Smoking history: Current every day smoker. Have you smoked in the past 12 months: Yes. Aproximately how many cigarettes per day: 20. Cigars Per Day: 0. Hx Chewing Tobacco Use: No. Initiated information on smoking cessation: Yes. 'Breaking Loose' booklet given : 05/17/17. - Substance & Tx. History. Hx Alcohol Use: Yes. Hx Substance Use : Yes. Substance Use Type: Alcohol, Heroin, Tranquilizers (BENZO). Hx Substance Use Treatment: Yes ([facility]). - Substances Abused. XANAX. Route: Oral. Frequency: Daily. Amount used: 40 MG. Age of first use: 20. Date of Last Use: 05/17/17. VALIUM. Route: Oral. Frequency: Daily. Amount used: 5MG. Age of first use: 20. Date of Last Use: 05/17/17. HEROIN. Route: Inhalation. Frequency: Daily. Amount used: 3 BAGS. Age of first use: 22. Date of Last Use: 05/17/17. THC. Route: Oral. Frequency: Daily. Amount used: 1 JOINT. Age of first use: 17. Date of Last Use: 05/17/17. LIQUOR. Route: Oral. Frequency: Daily. Amount used: 1/2 PINT. Age of first use: 22 ( 3 WEEKS AGO STARTED). Date of Last Use: 05/16/17 Medical History: Gastric Bypass S/P, Gastritis history, MMTP 80mg per day Psychiatric History: Reports anxiety and panic attacks, as per chart Personality disorder Physical/Sexual Abuse/Trauma History: [place], unclear Additional Comment: Observation. Detox Unit Care Protocol Mental Status Exam - Mental Status Exam Alert and Oriented to: Person Cognitive Function: Fair Patient Appearance: Unkempt Mood: Sad Affect: Flat Patient Behavior: Sedated, Cooperative Speech Pattern: Delayed Voice Loudness: Mildly Soft/Quiet Thought Process: Circumstantial Thought Disorder: Being Controlled Hallucinations: Denies Suicidal Ideation: Denies Homicidal Ideation: Denies Insight/Judgement: Fair Sleep: Difficulty falling asleep Appetite: Weight gain Muscle strength/Tone: Mild Hypotonicity Gait/Station: Shuffling Additional Comments: Observation. Detox Unit Care Protocol Psychiatric Findings - Problem List ([place] 1, 2,3) (1) Alcohol dependence with uncomplicated withdrawal Current Visit: Yes Status: Acute (2) Cannabis abuse Current Visit: Yes Status: Chronic (3) Methadone maintenance therapy patient Current Visit: Yes Status: Chronic (4) Nicotine dependence Current Visit: Yes Status: Chronic Qualifiers: Nicotine product type: cigarettes Substance use status: uncomplicated Qualified Code(s): F17.210 - Nicotine dependence, cigarettes, uncomplicated (5) Opioid dependence with withdrawal Current Visit: Yes Status: Chronic (6) Sedative, hypnotic, or anxiolytic withdrawal Current Visit: Yes Status: Chronic (7) Drug-induced mood disorder Current Visit: No Status: Acute (8) Methadone use Current Visit: No Status: Acute (9) Panic attacks Current Visit: No Status: Chronic (10) Sedative, hypnotic or anxiolytic dependence with withdrawal, uncomplicated Current Visit: No Status: Chronic (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 Current Visit: No Status: Chronic (12) Substance-induced sleep disorder Current Visit: No Status: Chronic (13) Personality disorder Current Visit: No Status: Suspected - Initial Treatment Plan Initial Treatment Plan: Observation. Detox Unit Care Protocol
[2017-05-18] MEDS ORDERED: METHADONE 40 MG, METHADONE 30 MG, METHADONE 5 MG PO ONE (08:30)
[2017-05-18] MEDS ORDERED: METHADONE HCL 40 MG DISPERSABLE TABLET ONE (08:42)
[2017-05-18] MEDS ORDERED: METHADONE HCL 10 MG TABLET ONE (08:43)
[2017-05-18] MEDS ORDERED: METHADONE HCL 5 MG TABLET ONE (08:44)
[2017-05-18 10:13] LABS: MCH 26.8 pg (25.7-33.7); MEAN CELL VOLUME 81.2 fl (80-96); MEAN PLT VOLUME 7.8 fl (7.5-11.1); PLATELET COUNT 213 K/MM3 (134-434); RDW 16.5 % (11.6-15.6)
[2017-05-18 10:44] LABS: ALBUMIN 3.4 g/dl (3.4-5.0); ALK PHOS 76 U/L (45-117); ANION GAP 7 (8-16); BILIRUBIN,TOTAL 0.3 mg/dL (0.2-1.0); CALCIUM 8.9 mg/dL (8.5-10.1); CO2 29 mmol/L (21-32); CREATININE 0.7 mg/dL (0.55-1.02); GLUCOSE,RANDOM 83 mg/dL (74-106); SGOT/AST 15 U/L (15-37); SGPT/ALT 19 U/L (12-78); TOT PROT 6.5 g/dl (6.4-8.2)
[2017-05-18] MEDS: PRENATAL VITAMINS W/ FOLIC ACID TABLET (FP) PO SCH (10:47)
[2017-05-18] MEDS: NICOTINE POLACRILEX 2 MG GUM BUC PRN (10:48)
[2017-05-18] MEDS: NICOTINE 21 MG/24 HOURS TOPICAL PATCH TD SCH (10:51)
--- NOTE | 2017-05-18 11:36 | PN ---
S CIWA - CIWA Score Nausea/Vomitin-No Nausea/No Vomiting Muscle Tremors: 4-Moderate,w/Arms Extend Anxiety: 3 Agitation: 4-Moderately Restless Paroxysmal Sweats: 3 Orientation: 0-Oriented Tacttile Disturbances: 0-None Auditory Disturbances: 0-None Visual Disturbances: 0-None Headache: 2-Mild CIWA-Ar Total Score: 16 BHS Progress Note (SOAP) Subjective: toothache causing my headaches sweats irritable anxiety muscle cramps interrupted sleep Objective: 05/18/17 11:34 Vital Signs Temperature 97.0 F L 05/18/17 10:00 Pulse Rate 87 05/18/17 10:00 Respiratory Rate 18 05/18/17 10:00 Blood Pressure 96/52 05/18/17 10:00 O2 Sat by Pulse Oximetry (%) Laboratory Tests 05/18/17 05/18/17 07:00 07:00 WBC 5.0 RBC 3.96 Hgb 10.6 L D Hct 32.1 L MCV 81.2 MCH 26.8 MCHC 33.0 RDW 16.5 H Plt Count 213 MPV 7.8 Sodium 142 Potassium 4.4 Chloride 106 Carbon Dioxide 29 Anion Gap 7 L BUN 13 Creatinine 0.7 Creat Clearance w eGFR > 60 Random Glucose 83 Calcium 8.9 Total Bilirubin 0.3 D AST 15 ALT 19 Alkaline Phosphatase 76 Total Protein 6.5 Albumin 3.4 labs pending awake/alert ambulating no acute distress Assessment: 05/18/17 11:34 withdrawal sx Plan: continue detox increase fluids anbesol tooth gel ordered prn motrin 800mg prn
[2017-05-18] MEDS ORDERED: PNEUMOCOCCAL 23 VACCINE 0.5 ML VIAL IM ONE (12:00)
[2017-05-18] MEDS: CYCLOBENZAPRINE HCL 10 MG TABLET (FP) PO PRN ×2 (13:14→22:38)
[2017-05-18] MEDS: hydrOXYzine PAMOATE 50 MG CAPSULE (FP) PO PRN ×2 (13:15→20:53)
[2017-05-18] MEDS: BENZOCAINE 20 % GEL 9 GM TUBE MM PRN ×2 (14:25→22:38)
[2017-05-18] MEDS: chlordiazePOXIDE HCL 25 MG CAPSULE PO PRN (15:36)
[2017-05-18] MEDS: IBUPROFEN 400 MG TABLET (FP) PO PRN ×2 (15:38→22:39)
[2017-05-18 20:01] LABS: PH,URINE 5.5 (5.0-8.0); URINE APPEARANCE CLEAR; URINE BILIRUBIN NEGATIVE (NEGATIVE); URINE BLOOD NEGATIVE (NEGATIVE); URINE COLOR ORANGE; URINE GLUCOSE (UA) NEGATIVE (NEGATIVE); URINE KETONE TRACE (NEGATIVE); URINE LEUK ESTERASE NEGATIVE (NEGATIVE); URINE NITRITE NEGATIVE (NEGATIVE); URINE PROTEIN TRACE (NEGATIVE); URINE UROBILINOGEN 0.2 mg/dL (0.2-1.0)
[2017-05-18] MEDS: ACETAMINOPHEN 325 MG TABLET (FP) PO PRN (20:54)
[2017-05-18] MEDS ORDERED: QUEtiapine FUMARATE 100 MG TABLET (FP) PO SCH (22:00)
[2017-05-18] MEDS: ZOLPIDEM TARTRATE 5 MG TABLET PO PRN (22:38)
[2017-05-18] MEDS: THIAMINE HCL 100 MG TABLET (FP) PO SCH (22:38)
--- NOTE | 2017-05-18 23:17 | EKG ---
Test Reason : Blood Pressure : / mmHG Vent. Rate : 057 BPM Atrial Rate : 057 BPM P-R Int : 156 ms QRS Dur : 084 ms QT Int : 466 ms P-R-T Axes : 019 052 041 degrees QTc Int : 453 ms SINUS BRADYCARDIA OTHERWISE NORMAL ECG WHEN COMPARED WITH ECG OF 17-MAY-2017 23:39, NO SIGNIFICANT CHANGE WAS FOUND Confirmed by SHEBA HARVEY MD ([id number]) on 05/18/2017 11:17:29 PM Referred By: Confirmed By:SHEBA HARVEY MD
[2017-05-19] MEDS ORDERED: METHADONE HCL 40 MG DISPERSABLE TABLET ONE (04:52)
[2017-05-19] MEDS ORDERED: METHADONE HCL 10 MG TABLET ONE (04:52)
[2017-05-19] MEDS ORDERED: METHADONE HCL 5 MG TABLET ONE (04:53)
[2017-05-19] MEDS: METHADONE 40 MG, METHADONE 30 MG, METHADONE 5 MG PO SCH (05:52)
[2017-05-19] MEDS: CYCLOBENZAPRINE HCL 10 MG TABLET (FP) PO PRN ×3 (05:59→22:30)
[2017-05-19] MEDS: hydrOXYzine PAMOATE 50 MG CAPSULE (FP) PO PRN ×3 (05:59→22:35)
[2017-05-19] MEDS: AMOXICILLIN 500 MG CAPSULE (FP) PO SCH ×3 (05:59→22:29)
[2017-05-19] MEDS: IBUPROFEN 400 MG TABLET (FP) PO PRN ×3 (06:01→22:30)
[2017-05-19] MEDS: BENZOCAINE 20 % GEL 9 GM TUBE MM PRN (06:05)
[2017-05-19] MEDS: chlordiazePOXIDE HCL 25 MG CAPSULE PO SCH ×3 (07:12→18:40)
[2017-05-19] MEDS: QUEtiapine FUMARATE 50 MG TABLET PO SCH ×3 (07:14→22:30)
[2017-05-19] MEDS: PRENATAL VITAMINS W/ FOLIC ACID TABLET (FP) PO SCH (10:50)
[2017-05-19] MEDS: NICOTINE 21 MG/24 HOURS TOPICAL PATCH TD SCH (10:50)
[2017-05-19] MEDS: NICOTINE POLACRILEX 2 MG GUM BUC PRN (10:55)
[2017-05-19] MEDS ORDERED: ONDANSETRON *ODT* 4 MG TABLET SL PRN (11:29)
--- NOTE | 2017-05-19 11:50 | PN ---
S CIWA - CIWA Score Nausea/Vomitin Muscle Tremors: 4-Moderate,w/Arms Extend Anxiety: 4-Mod. Anxious/Guarded Agitation: 4-Moderately Restless Paroxysmal Sweats: 3 Orientation: 0-Oriented Tacttile Disturbances: 0-None Auditory Disturbances: 0-None Visual Disturbances: 0-None Headache: 0-None Present CIWA-Ar Total Score: 20 BHS Progress Note (SOAP) Subjective: nausea, sweats, interrupted sleep, anxiety, tremors Objective: 05/19/17 11:49 Vital Signs - 8 hr 05/19/17 05/19/17 07:09 10:42 Temperature 97.5 F L 97.2 F L Pulse Rate 84 94 H Respiratory 20 20 Rate Blood Pressure 134/64 135/67 Laboratory Tests 05/17/17 05/18/17 05/18/17 07:00 07:00 07:00 WBC 5.0 RBC 3.96 Hgb 10.6 L D Hct 32.1 L MCV 81.2 MCH 26.8 MCHC 33.0 RDW 16.5 H Plt Count 213 MPV 7.8 Sodium 142 Potassium 4.4 Chloride 106 Carbon Dioxide 29 Anion Gap 7 L BUN 13 Creatinine 0.7 Creat Clearance w eGFR > 60 Random Glucose 83 Calcium 8.9 Total Bilirubin 0.3 D AST 15 ALT 19 Alkaline Phosphatase 76 Total Protein 6.5 Albumin 3.4 Urine Color Urine Appearance Urine pH Ur Specific [place] Urine Protein Urine Glucose (UA) Urine Ketones Urine Blood Urine Nitrite Urine Bilirubin Urine Urobilinogen RPR Titer Hepatitis C Antibody <0.1 05/18/17 05/18/17 07:00 14:00 WBC RBC Hgb Hct MCV MCH MCHC RDW Plt Count MPV Sodium Potassium Chloride Carbon Dioxide Anion Gap BUN Creatinine Creat Clearance w eGFR Random Glucose Calcium Total Bilirubin AST ALT Alkaline Phosphatase Total Protein Albumin Urine Color [place] Urine Appearance Clear Urine pH 5.5 Ur Specific [place] >= 1.030 H Urine Protein Trace H Urine Glucose (UA) Negative Urine Ketones Trace H Urine Blood Negative Urine Nitrite Negative Urine Bilirubin Negative Urine Urobilinogen 0.2 RPR Titer Nonreactive Hepatitis C Antibody Assessment: 05/19/17 11:50 withdrawal sx, nausea Plan: cont detox, iron, zofranscheduled, libirum x1 after vomiting mediation
[2017-05-19] MEDS ORDERED: COLLOIDAL OATMEAL 1 BAR EACH TP PRN (11:58)
[2017-05-19] MEDS ORDERED: chlordiazePOXIDE HCL 25 MG CAPSULE PO ONE (12:05)
[2017-05-19] MEDS ORDERED: ONDANSETRON *ODT* 4 MG TABLET SL ONE (12:05)
[2017-05-19] MEDS: FERROUS SO4 325 MG TABLET (FP) PO SCH ×2 (12:26→18:40)
[2017-05-19] MEDS: ONDANSETRON *ODT* 4 MG TABLET SL SCH ×2 (12:26→22:37)
[2017-05-19] MEDS: diphenhydrAMINE HCL 25 MG CAPSULE (FP) PO PRN (12:29)
[2017-05-19] MEDS: ZOLPIDEM TARTRATE 5 MG TABLET PO PRN (22:29)
[2017-05-19] MEDS: DOCUSATE SODIUM 100 MG CAPSULE (FP) PO SCH (22:29)
[2017-05-19] MEDS: THIAMINE HCL 100 MG TABLET (FP) PO SCH (22:30)
[2017-05-19] MEDS: chlordiazePOXIDE 5 MG CAPSULE PO SCH (22:30)
[2017-05-20] MEDS ORDERED: METHADONE HCL 10 MG TABLET ONE (04:40)
[2017-05-20] MEDS ORDERED: METHADONE HCL 40 MG DISPERSABLE TABLET ONE (04:40)
[2017-05-20] MEDS ORDERED: METHADONE HCL 5 MG TABLET ONE (04:41)
[2017-05-20] MEDS: AMOXICILLIN 500 MG CAPSULE (FP) PO SCH ×3 (06:07→22:22)
[2017-05-20] MEDS: chlordiazePOXIDE 5 MG CAPSULE PO SCH ×3 (06:07→17:26)
[2017-05-20] MEDS: METHADONE 40 MG, METHADONE 30 MG, METHADONE 5 MG PO SCH (06:08)
[2017-05-20] MEDS: hydrOXYzine PAMOATE 50 MG CAPSULE (FP) PO PRN ×2 (06:14→10:53)
[2017-05-20] MEDS: QUEtiapine FUMARATE 50 MG TABLET PO SCH ×3 (06:14→22:24)
[2017-05-20] MEDS: CYCLOBENZAPRINE HCL 10 MG TABLET (FP) PO PRN ×3 (06:14→22:23)
[2017-05-20] MEDS: FERROUS SO4 325 MG TABLET (FP) PO SCH ×3 (08:01→17:26)
[2017-05-20] MEDS: ONDANSETRON *ODT* 4 MG TABLET SL SCH ×3 (08:01→22:25)
[2017-05-20] MEDS: PRENATAL VITAMINS W/ FOLIC ACID TABLET (FP) PO SCH (10:51)
[2017-05-20] MEDS: NICOTINE 21 MG/24 HOURS TOPICAL PATCH TD SCH (10:53)
[2017-05-20] MEDS: IBUPROFEN 400 MG TABLET (FP) PO PRN ×2 (11:13→21:03)
--- NOTE | 2017-05-20 12:22 | PN ---
BHS Progress Note (SOAP) Subjective: sweats body aches irritable Objective: 05/20/17 12:22 Vital Signs Temperature 97.9 F 05/20/17 10:00 Pulse Rate 93 H 05/20/17 10:00 Respiratory Rate 18 05/20/17 10:00 Blood Pressure 108/68 05/20/17 10:00 O2 Sat by Pulse Oximetry (%) awake/alert ambulating no acute distress Assessment: 05/20/17 12:22 withdrawal sx Plan: continue detox increase fluids d/c in am
[2017-05-20] MEDS: chlordiazePOXIDE HCL 25 MG CAPSULE PO PRN ×2 (14:58→21:00)
[2017-05-20] MEDS: diphenhydrAMINE HCL 25 MG CAPSULE (FP) PO PRN (17:26)
[2017-05-20] MEDS ORDERED: QUEtiapine FUMARATE 25 MG TABLET (FP) ONE (20:07)
[2017-05-20] MEDS: ZOLPIDEM TARTRATE 5 MG TABLET PO PRN (22:22)
[2017-05-20] MEDS: chlordiazePOXIDE HCL 10 MG CAPSULE PO SCH (22:23)
[2017-05-20] MEDS: DOCUSATE SODIUM 100 MG CAPSULE (FP) PO SCH (22:23)
[2017-05-20] MEDS: THIAMINE HCL 100 MG TABLET (FP) PO SCH (22:24)
[2017-05-20] MEDS: diphenhydrAMINE HCL 50 MG CAPSULE PO PRN (22:25)
[2017-05-21] MEDS ORDERED: METHADONE HCL 40 MG DISPERSABLE TABLET ONE (06:26)
[2017-05-21] MEDS ORDERED: METHADONE HCL 10 MG TABLET ONE (06:26)
[2017-05-21] MEDS ORDERED: METHADONE HCL 5 MG TABLET ONE (06:27)
[2017-05-21] MEDS: METHADONE 40 MG, METHADONE 30 MG, METHADONE 5 MG PO SCH (06:28)
[2017-05-21] MEDS: chlordiazePOXIDE HCL 10 MG CAPSULE PO SCH ×3 (06:31→18:07)
[2017-05-21] MEDS: ONDANSETRON *ODT* 4 MG TABLET SL SCH ×3 (06:32→22:26)
[2017-05-21] MEDS: QUEtiapine FUMARATE 50 MG TABLET PO SCH ×3 (06:32→22:26)
[2017-05-21] MEDS: AMOXICILLIN 500 MG CAPSULE (FP) PO SCH ×3 (06:32→22:25)
[2017-05-21] MEDS: FERROUS SO4 325 MG TABLET (FP) PO SCH ×3 (08:33→18:06)
[2017-05-21] MEDS: IBUPROFEN 400 MG TABLET (FP) PO PRN ×2 (09:16→22:27)
[2017-05-21] MEDS: diphenhydrAMINE HCL 25 MG CAPSULE (FP) PO PRN ×3 (09:19→22:28)
[2017-05-21] MEDS: PRENATAL VITAMINS W/ FOLIC ACID TABLET (FP) PO SCH (10:54)
[2017-05-21] MEDS: CYCLOBENZAPRINE HCL 10 MG TABLET (FP) PO PRN ×2 (10:56→22:26)
[2017-05-21] MEDS: hydrOXYzine PAMOATE 50 MG CAPSULE (FP) PO PRN ×3 (10:56→23:51)
[2017-05-21] MEDS: NICOTINE 21 MG/24 HOURS TOPICAL PATCH TD SCH (10:57)
--- NOTE | 2017-05-21 11:36 | PN ---
BHS Progress Note (SOAP) Subjective: anxiety body aches Objective: 05/21/17 11:36 Vital Signs Temperature 98.1 F 05/21/17 10:07 Pulse Rate 104 H 05/21/17 10:07 Respiratory Rate 20 05/21/17 10:07 Blood Pressure 106/71 05/21/17 10:07 O2 Sat by Pulse Oximetry (%) awake/alert ambulating no acute distress Assessment: 05/21/17 11:36 mild withdrawal sx Plan: continue detox d/c in am
[2017-05-21] MEDS: NICOTINE POLACRILEX 2 MG GUM BUC PRN (15:08)
[2017-05-21] MEDS: ACETAMINOPHEN 325 MG TABLET (FP) PO PRN (15:08)
[2017-05-21] MEDS: ZOLPIDEM TARTRATE 5 MG TABLET PO PRN (22:25)
[2017-05-21] MEDS: THIAMINE HCL 100 MG TABLET (FP) PO SCH (22:25)
[2017-05-21] MEDS: DOCUSATE SODIUM 100 MG CAPSULE (FP) PO SCH (22:26)
[2017-05-22] MEDS ORDERED: METHADONE HCL 40 MG DISPERSABLE TABLET ONE (04:52)
[2017-05-22] MEDS ORDERED: METHADONE HCL 10 MG TABLET ONE (04:52)
[2017-05-22] MEDS ORDERED: METHADONE HCL 5 MG TABLET ONE (04:54)
[2017-05-22] MEDS: METHADONE 40 MG, METHADONE 30 MG, METHADONE 5 MG PO SCH (05:58)
[2017-05-22] MEDS: AMOXICILLIN 500 MG CAPSULE (FP) PO SCH (06:01)
[2017-05-22] MEDS: QUEtiapine FUMARATE 50 MG TABLET PO SCH (06:01)
[2017-05-22] MEDS: ONDANSETRON *ODT* 4 MG TABLET SL SCH (06:01)
[2017-05-22] MEDS: CYCLOBENZAPRINE HCL 10 MG TABLET (FP) PO PRN (06:04)
[2017-05-22] MEDS: diphenhydrAMINE HCL 25 MG CAPSULE (FP) PO PRN (06:04)
[2017-05-22] MEDS: hydrOXYzine PAMOATE 50 MG CAPSULE (FP) PO PRN (06:04)
[2017-05-22 06:37] VITALS: PULSE 110
[2017-05-22] MEDS: FERROUS SO4 325 MG TABLET (FP) PO SCH (08:04)
--- NOTE | 2017-05-22 09:08 | DS ---
[facility] Detox Discharge Summary Admission Date: 05/17/17 Discharge Date: 05/22/17 - History Present History: Alcohol Dependence, Cannabis Dependence, Opioid Dependence, Sedative Dependence, MMTP - Physical Exam Results Vital Signs: Vital Signs Temperature 97.9 F 05/22/17 06:00 Pulse Rate 110 H 05/22/17 06:00 Respiratory Rate 18 05/22/17 06:00 Blood Pressure 116/68 05/22/17 06:00 O2 Sat by Pulse Oximetry (%) - Treatment Hospital Course: Detox Protocol Followed, Detoxed Safely, Responded well, Discharged Condition Good, Rehab Referral Accepted - Medication Discharge Medications: Ambulatory Orders Methadone [Dolophine -] 85 mg PO DAILY 03/28/17 Ibuprofen 600 mg PO Q6H PRN 05/18/17 Quetiapine Fumarate [Seroquel -] 50 mg PO TID #90 tablet 05/18/17 Hydroxyzine Pamoate [Vistaril -] 50 mg PO Q4H PRN #120 cap 05/21/17 Amoxicillin - [Amoxicillin 500mg Capsule -] 500 mg PO TID #7 tab 05/22/17 Amoxicillin 500mg Capsule - 500 mg PO TID #5 mg 05/22/17 - Diagnosis (1) Alcohol dependence with uncomplicated withdrawal Current Visit: Yes Status: Chronic (2) Tooth infection Current Visit: Yes Status: Chronic (3) Cannabis abuse Current Visit: Yes Status: Chronic (4) Methadone maintenance therapy patient Current Visit: Yes Status: Chronic (5) Nicotine dependence Current Visit: Yes Status: Chronic Qualifiers: Nicotine product type: cigarettes Substance use status: uncomplicated Qualified Code(s): F17.210 - Nicotine dependence, cigarettes, uncomplicated (6) Sedative, hypnotic, or anxiolytic withdrawal Current Visit: Yes Status: Chronic (7) Anxiety and depression Current Visit: No Status: Chronic (8) H/O gastric bypass Current Visit: No Status: Chronic (9) Sedative, hypnotic or anxiolytic dependence with withdrawal, uncomplicated Current Visit: No Status: Chronic - AMA Did Patient Leave Against Medical Advice: No (referred to MMTP)
[2017-05-22] MEDS: PRENATAL VITAMINS W/ FOLIC ACID TABLET (FP) PO SCH (09:11)
[2017-05-22] MEDS: NICOTINE 21 MG/24 HOURS TOPICAL PATCH TD SCH (09:12)
[2017-05-22 09:47] VITALS: BP 136/80; TEMP 98.1
== END 2017-05-22 09:35 | disposition home or self-care (01) | DRG 773 ==
LOC: YASAS 22:41 → Y6N 23:22
PROVIDERS: ADMIT Internal Medicine; ATTEND Internal Medicine
PROC: HZ2ZZZZ Detoxification Services for Substance Abuse Treatment (ICD-10-PCS; principal; 2017-05-17)
DX: F11.20 Opioid dependence, uncomplicated (principal); F13.230 Sedative, hypnotic or anxiolytic dependence with withdrawal, uncomplicated; F10.230 Alcohol dependence with withdrawal, uncomplicated; F12.10 Cannabis abuse, uncomplicated; F60.9 Personality disorder, unspecified; F19.282 Other psychoactive substance dependence with psychoactive substance-induced sleep disorder; F19.280 Other psychoactive substance dependence with psychoactive substance-induced anxiety disorder; F19.24 Other psychoactive substance dependence with psychoactive substance-induced mood disorder; F41.8 Other specified anxiety disorders; F41.0 Panic disorder [episodic paroxysmal anxiety]; K04.7 Periapical abscess without sinus; Z98.84 Bariatric surgery status
CPT/HCPCS: 36415; 80053; 81003; 85027; 86593; 86803; 90732; 93005; 93010; G0009

== ENCOUNTER 2017-09-24 15:35 | Emergency (ER) | payer OTHER ==
--- NOTE | 2017-09-24 16:01 | PDOC ---
Rapid Medical Evaluation Medical Evaluation: Allergies Allergy/AdvReac Type Severity Reaction Status Date / Time No Known Allergies Allergy Verified 05/18/17 01:38 09/24/17 15:58 I have performed a brief in person evaluation of this patient. The patient presents with chief complaint of : c/o fall 3 days ago states hit head and has passed out twice since then. c/o pain all over her body. LMP 1yr ago. Pertinent PE findings: Aox3 no acute distress, bruising to right buttock and posterior thigh, ttp right midline back and scapula area I have ordered the following: urine pregancy , The patient will proceed to the ER for further evaluation. Discharge Disposition - Diagnosis Back pain, Traumatic buttock pain, Headache - Discharge Dispostion Disposition: HOME Condition at time of disposition: Stable - Referrals Referrals: Thang Cardona MD [Primary Care Provider] - - Patient Instructions Additional Instructions: After experiencing a fall pain usually gets worse for the first few days and after the second or third day pain will start to improve slowly. Take Motrin as directed by manufacturers instructions as needed for pain. You may also take Tylenol in between Motrin dosages for pain. Follow manufacturers instructions for appropriate dosing. You may continue to experience headaches for some time after a head injury. Follow-up to primary doctor for continued evaluation of these headaches. Make an appointment with your fleet sales associate to follow-up the nodule found on your thyroid during the CT scan. Return to emergency department for worsening headache, visual changes, dizziness , nausea, vomiting or any other concerns. Thank you very much for choosing us to provide your emergent healthcare needs. - Post Discharge Activity Work/School Note: Back to Work
[2017-09-24 16:03] VITALS: BP 131/80; PULSE 102; TEMP 97.7; BMI 28.5
--- NOTE | 2017-09-24 20:37 | PDOC ---
History of Present Illness - General Chief Complaint: Syncope/Near Syncope Stated Complaint: S.O.B Time Seen by Provider: 09/24/17 15:57 History Source: Patient Exam Limitations: No Limitations - History of Present Illness Initial Comments: 09/24/17 20:32 This is a 22-year-old woman with past medical history of hypothyroidism who presents emergency Department with headache and right neck, right shoulder, right buttock and right lower back pain status post slip and fall 2 days ago. Patient states she was walking on ice when she slipped and fell. She had no initial complaints that up and started walking and then while trying to navigate a flight of stairs slipped on the third step went feet first twisted landed on her right side and continued to the bottom of 12 concrete steps. She reports she struck her right buttock, right hip, right scapula, and right side of her head on the stairs during the fall. She denied loss of consciousness. She does report lose consciousness twice yesterday which was 1 day after the event. Patient endorses intermittent shortness of breath where she feels she has to take an extra gasp of air. Patient reports photophobia. Describes the pain as "the worst hangover ever." Patient denies abdominal pain, nausea, vomiting, chest pain. PMD: Thang Cardona PMH: Hypothyroidism-not on medication PSH: Remote tonsillectomy NKDA Past History - Past Medical History Allergies/Adverse Reactions: Allergies Allergy/AdvReac Type Severity Reaction Status Date / Time No Known Allergies Allergy Verified 09/24/17 15:58 Home Medications: Ambulatory Orders Methadone [Dolophine -] 85 mg PO DAILY 03/28/17 Ibuprofen 600 mg PO Q6H PRN 05/18/17 Quetiapine Fumarate [Seroquel -] 50 mg PO TID #90 tablet 05/18/17 Hydroxyzine Pamoate [Vistaril -] 50 mg PO Q4H PRN #120 cap 05/21/17 Amoxicillin - [Amoxicillin 500mg Capsule -] 500 mg PO TID #7 tab 05/22/17 Amoxicillin 500mg Capsule - 500 mg PO TID #5 mg 05/22/17 Anemia: No Asthma: No Cancer: No Cardiac Disorders: No CVA: No COPD: No CHF: No DVT: No Dementia: No Diabetes: No GI Disorders: No Disorders: No HTN: No Hypercholesterolemia: No Kidney Stones: No Liver Disease: No Seizures: No Thyroid Disease: Yes (HYPO) - Surgical History Abdominal Surgery: Yes (Gastric bypass in 2011) Appendectomy: No Cardiac Surgery: No Cholecystectomy: No Gastric Stapling: Yes (GASTRIC SLEEVE) Lung Surgery: No Neurologic Surgery: No Orthopedic Surgery: No - Reproductive History PID: No - Suicide/Smoking/Psychosocial Hx Smoking History: Current some day smoker Have you smoked in the past 12 months: Yes Number of Cigarettes Smoked Daily: 0 Cigars Per Day: 0 Information on smoking cessation initiated: No 'Breaking Loose' booklet given: 05/17/17 Hx Alcohol Use: Yes Drug/Substance Use Hx: Yes Substance Use Type: Alcohol, Heroin, Tranquilizers (BENZO) Hx Substance Use Treatment: Yes ([facility]) Trauma Specific PMHX - Complaint Specific PMHX Arthritis: No Review of Systems - Review of Systems Able to Perform ROS?: Yes Is the patient limited Hungarian proficient: No Constitutional: No: Symptoms Reported HEENTM: Yes: See HPI Respiratory: Yes: See HPI Cardiac (ROS): No: Symptoms Reported ABD/GI: No: Symptoms Reported : No: Symptoms Reported Musculoskeletal: Yes: See HPI Integumentary: Yes: See HPI Neurological: Yes: See HPI *Physical Exam - Vital Signs Last Vital Signs Temp Pulse Resp BP Pulse Ox 97.7 F 102 H 19 131/80 100 09/24/17 15:58 09/24/17 15:58 09/24/17 15:58 09/24/17 15:58 09/24/17 15:58 - Physical Exam General Appearance: Yes: Appropriately Dressed. No: Apparent Distress HEENT: positive: EOMI, YULISA, Normal ENT Inspection, TMs Normal Neck: positive: Trachea midline. negative: Supple Respiratory/Chest: positive: Lungs Clear, Normal Breath Sounds. negative: Chest Tender, Respiratory Distress, Accessory Muscle Use Cardiovascular: positive: Regular Rhythm, Regular Rate, Edema. negative: Murmur Gastrointestinal/Abdominal: positive: Normal Bowel Sounds, Soft. negative: Tender Musculoskeletal: positive: Normal Inspection, Vertebral Tenderness (T9-T11). negative: CVA Tenderness Extremity: positive: Normal Inspection, Normal Range of Motion Integumentary: positive: Dry, Warm, Ecchymosis (right buttock extending into right lateral thigh) Neurologic: positive: video game producer II-XII NML intact, Fully Oriented, Alert, Normal Mood/ Affect, Normal Response, Motor Strength 01/09 ED Treatment Course - ADDITIONAL ORDERS Additional order review: Laboratory Results 09/24/17 18:42 Urine HCG, Qual Negative Medical Decision Making - Medical Decision Making 09/24/17 20:37 A/P: This is a 22-year-old woman with past medical history of hypothyroidism who presents emergency Department with headache and right neck, right shoulder, right buttock and right lower back pain status post slip and fall 2 days ago. Patient states she was walking on ice when she slipped and fell. She had no initial complaints that up and started walking and then while trying to navigate a flight of stairs slipped on the third step went feet first twisted landed on her right side and continued to the bottom of 12 concrete steps. She reports she struck her right buttock, right hip, right scapula, and right side of her head on the stairs during the fall. She denied loss of consciousness. She does report lose consciousness twice yesterday which was 1 day after the event. Patient endorses intermittent shortness of breath where she feels she has to take an extra gasp of air. Patient reports photophobia. Describes the pain as "the worst hangover ever." Patient denies abdominal pain, nausea, vomiting, chest pain. Cranial nerves II through XII intact. Ambulatory with steady gait. Tenderness to right lateral neck. No midline bony tenderness appreciated. Patient able to fully range neck in all directions. Respirations even and unlabored. Lungs clear to auscultation bilaterally. RRR. No murmur, rub or gallop appreciated. Abdomen soft nontender nondistended. Tenderness to palpation over right scapula. No deformity, crepitus, subcutaneous emphysema noted. Full range of motion of the right shoulder appreciated. Ecchymosis noted to the right buttock extending to the right lateral thigh. Able to perform straight leg raises without difficulty. Strength 5 out of 5 in all extremities. no saddle anesthesia. No incontinence of bowel or bladder. Differential diagnoses include: Musculoskeletal pain, spinal injury, right scapular fracture, ICH, pulmonary contusion, pneumothorax, concussion- Low clinical index of suspicion for pneumothorax giving patient has clear breath sounds to auscultation bilaterally in all wang. ICH less likely given incident occurred 2 days ago and patient's headache has not worsened, and neurologic exam is within normal limits. Spinal cord injury is less likely given full sensation, lack of saddle anesthesia, lack of incontinence. UPT testing done in rapid medical evaluation is negative. Therefore I'll perform CAT scan of the head and neck and chest. At the test has been completed I'll give the patient Toradol, Reglan and Benadryl for pain management. 09/25/17 00:[address] (without contrast) Clinical information: dyspnea; status post fall Multiplanar imaging was performed. As requested intravenous contrast was not administered. No evidence of pneumothorax, pulmonary contusion, infiltrate or pleural fluid. There is no mediastinal hematoma. No gross aortic injury is seen on noncontrast imaging. There is no obvious lymphadenopathy. No cardiac enlargement is noted. There is no pericardial effusion. Bilateral breast implants are seen. A possible subtle 2 cm right thyroid lobe nodule is visualized. No gross endobronchial pathology is seen. Status post sleeve gastrectomy. The spleen demonstrates minimal to mild prominence measuring 13 cm in length. The visualized osseous structures demonstrate no obvious CT evidence of acute pathology. Impression: No definite intrathoracic pathology is seen. Minimal to mild splenomegaly is noted. A possible 2 cm right thyroid lobe nodule is seen. Correlate with nonemergent sonography. Reported By: Piter Hogue MD 09/24/[address]/HEAD CT WITHOUT CONTRAST Cranial CT without contrast Clinical information: headache, status post fall Multiplanar imaging was performed. Intravenous contrast was not administered. No CT evidence of intracranial injury or calvarial fracture. There is no extra-axial fluid collection. No gross mass lesion is seen. There is no definite abnormal attenuation. The ventricles and cisterns appear unremarkable. Impression: No CT evidence of acute intracranial pathology. Reported By: Piter Hogue MD 09/24/[address]/CERVICAL SPINE CT W/O CONTR Cervical spine CT without contrast Clinical information: status post fall Multiplanar imaging was performed. No fracture or subluxation is seen. The disc spaces appear preserved. No facet arthropathy is noted. Allowing for partially obscuring beam regarding artifact no gross disc herniation is identified. No canal stenosis is seen. The perivertebral soft tissues demonstrate no obvious abnormality. Impression: No fracture is identified. Reported By: Piter Hogue MD 09/24/17 2403 All findings explained to the patient. Patient is aware that she should follow- up with her vp information technology regarding the nodule found on her thyroid. I'll discharge the patient with strict follow-up instructions. *DC/Admit/Observation/Transfer Diagnosis at time of Disposition: Traumatic buttock pain Back pain Qualifiers: Back pain location: thoracic back pain Chronicity: acute Back pain laterality: midline Qualified Code(s): M54.6 - Pain in thoracic spine Headache Qualifiers: Headache type: unspecified Headache chronicity pattern: acute headache Intractability: not intractable Qualified Code(s): R51 - Headache - Discharge Dispostion Disposition: HOME Condition at time of disposition: Stable Admit: No - Referrals Referrals: Thang Cardona MD [Primary Care Provider] - - Patient Instructions Additional Instructions: After experiencing a fall pain usually gets worse for the first few days and after the second or third day pain will start to improve slowly. Take Motrin as directed by manufacturers instructions as needed for pain. You may also take Tylenol in between Motrin dosages for pain. Follow manufacturers instructions for appropriate dosing. You may continue to experience headaches for some time after a head injury. Follow-up to primary doctor for continued evaluation of these headaches. Make an appointment with your vp information technology to follow-up the nodule found on your thyroid during the CT scan. Return to emergency department for worsening headache, visual changes, dizziness , nausea, vomiting or any other concerns. Thank you very much for choosing us to provide your emergent healthcare needs. - Post Discharge Activity Forms/Work/School Notes: Back to Work
[2017-09-24] MEDS ORDERED: ACETAMINOPHEN 500 MG TABLET (FP) PO ONE (21:35)
[2017-09-24] MEDS ORDERED: ACETAMINOPHEN 325 MG TABLET (FP) ONE (21:37)
[2017-09-25] MEDS ORDERED: KETOROLAC TROMETHAMINE 30 MG/1 ML VIAL IM ONE (00:27)
[2017-09-25] MEDS ORDERED: KETOROLAC TROMETHAMINE 30 MG/1 ML VIAL ONE (00:57)
== END 2017-09-25 01:16 | disposition home or self-care (01) ==
LOC: JER 15:35
PROC: 3E0333Z Introduction of Anti-inflammatory into Peripheral Vein, Percutaneous Approach (ICD-10-PCS; principal; 2017-09-24)
DX: S39.82XA Other specified injuries of lower back, initial encounter (principal); M25.511 Pain in right shoulder; M25.551 Pain in right hip; R51 Headache; W00.2XXA Other fall from one level to another due to ice and snow, initial encounter; Y93.01 Activity, walking, marching and hiking; Y92.480 Sidewalk as the place of occurrence of the external cause; E03.9 Hypothyroidism, unspecified
CPT/HCPCS: 70450-TC; 71250-TC; 72125-TC; 84703; 99282-25

== ENCOUNTER 2018-12-07 17:13 | Emergency (ER) | payer SELFPAY ==
[2018-12-07 17:54] VITALS: BP 106/75; PULSE 68; TEMP 98.4; BMI 30.9
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
[2018-12-07] MEDS ORDERED: ACETAMINOPHEN 325 MG TABLET (FP) PO ONE (18:02)
[2018-12-07] MEDS ORDERED: diphenhydrAMINE HCL 12.5 MG/5 ML UNIT-DOSE CUPS PO ONE (18:02)
[2018-12-07] MEDS ORDERED: ACETAMINOPHEN 325 MG TABLET (FP) ONE (18:06)
[2018-12-07] MEDS ORDERED: diphenhydrAMINE HCL 25 MG CAPSULE (FP) PO ONE (18:07)
[2018-12-07 18:30] LABS: BASO % 0.7 % (0-2.0); EOS % 0.6 % (0-4.5); HEMATOCRIT 39.2 % (32.4-45.2); HEMOGLOBIN 12.8 GM/dl (10.7-15.3); LYMPH % 28.1 % (8-40); MCHC 32.5 g/dl (32.0-36.0); MEAN CELL VOLUME 82.9 fl (80-96); MEAN PLT VOLUME 8.3 fl (7.5-11.1); MONO % 5.1 % (3.8-10.2); NEUT % 65.5 % (42.8-82.8); PLATELET COUNT 320 K/MM3 (134-434); RBC 4.72 M/mm3 (3.60-5.2); RDW 15.6 % (11.6-15.6); WHITE BLOOD COUNT 6.9 K/mm3 (4.0-10.8)
[2018-12-07 18:40] LABS: ALBUMIN 4.6 g/dl (3.4-5.0); ALK PHOS 80 U/L (45-117); ANION GAP 10 MMOL/L (8-16); BILIRUBIN,TOTAL 0.9 mg/dl (0.2-1); BLOOD UREA NITROGEN 17 mg/dl (7-18); CALCIUM 9.3 mg/dl (8.5-10); CHLORIDE 105 mmol/L (98-107); CO2 24 mmol/L (21-32); CREATININE 0.6 mg/dl (0.55-1.3); GLUCOSE,RANDOM 97 mg/dl (74-106); POTASSIUM 3.3 mmol/L (3.5-5.1); SGOT/AST 16 U/L (15-37); SGPT/ALT 13 U/L (13-61); SODIUM 139 mmol/L (136-145); TOT PROT 7.8 g/dl (6.4-8.2)
--- NOTE | 2018-12-08 09:49 | EKG ---
Test Reason : Blood Pressure : / mmHG Vent. Rate : 063 BPM Atrial Rate : 063 BPM P-R Int : 134 ms QRS Dur : 088 ms QT Int : 422 ms P-R-T Axes : 006 053 043 degrees QTc Int : 431 ms NORMAL SINUS RHYTHM NORMAL ECG WHEN COMPARED WITH ECG OF 17-MAY-2017 23:40, T WAVE INVERSION NOW EVIDENT IN ANTERIOR LEADS Confirmed by MARISSA SALGADO, LIV ([id number]) on 12/08/2018 9:49:16 AM Referred By: DR CHAND Confirmed By:LIV ANN MD
== END 2018-12-07 19:31 | disposition home or self-care (01) ==
LOC: SUPCPDRO 17:13 → FER 17:13
DX: M79.601 Pain in right arm (principal); R42 Dizziness and giddiness; F17.210 Nicotine dependence, cigarettes, uncomplicated; Z98.84 Bariatric surgery status; E03.9 Hypothyroidism, unspecified
CPT/HCPCS: 36415; 73562-TC-LT-FY; 80053; 85025; 93005; 99281-25

== ENCOUNTER 2018-12-15 13:10 | Emergency (ER) | payer OTHER ==
[2018-12-15 13:23] VITALS: BP 104/65; PULSE 106; TEMP 98.3; BMI 30.7
--- NOTE | 2018-12-15 14:03 | PDOC ---
History of Present Illness - General Chief Complaint: Bite Stated Complaint: PATIENT HERE FOR BUG BITE X 1 DAY Time Seen by Provider: 12/15/18 13:46 History Source: Patient Exam Limitations: No Limitations - History of Present Illness Initial Comments: 12/15/18 14:08 23 y/o female presents to the ED with c/o redness, pain, and swelling to left groin since yesterday. pt states thinks someting bit her while on the porch yesterday but unsure. Pt with hx of tummy tuck years ago and shaves her pubic hair versus waxing secondary to ingrown hairs. Pt denies diabetes, immunosupression, and fever. Timing/Duration: 24 hours, getting worse Severity: moderate Associated Symptoms: reports: other Past History - Travel Traveled outside of the country in the last 30 days: No Close contact w/someone who was outside of country & ill: No - Past Medical History Allergies/Adverse Reactions: Allergies Allergy/AdvReac Type Severity Reaction Status Date / Time NSAIDS (Non-Steroidal Allergy Verified 12/07/18 18:21 Anti-Inflamma Home Medications: Ambulatory Orders Eszopiclone [Lunesta] 0 mg PO PRN PRN 12/07/18 Quetiapine Fumarate [Seroquel] 100 tab PO PRN 12/07/18 Zolpidem Tartrate [Ambien] 10 mg PO PRN 12/07/18 Naproxen [Naprosyn -] 375 mg PO BID #14 tablet 12/15/18 Sulfamethoxazole/Trimethoprim [Bactrim Ds -] 1 tab PO BID #14 tablet 12/15/18 Anemia: No Asthma: No Cancer: No Cardiac Disorders: No CVA: No COPD: No CHF: No DVT: No Dementia: No Diabetes: No GI Disorders: No Disorders: No HTN: No Hypercholesterolemia: No Kidney Stones: No Liver Disease: No Seizures: No Thyroid Disease: Yes (HYPO) - Surgical History Abdominal Surgery: Yes (Gastric bypass in 2010) Appendectomy: No Cardiac Surgery: No Cholecystectomy: No Gastric Stapling: Yes (GASTRIC SLEEVE) Lung Surgery: No Neurologic Surgery: No Orthopedic Surgery: No - Reproductive History PID: No - Immunization History Immunization Up to Date: No - Suicide/Smoking/Psychosocial Hx Smoking History: Current some day smoker Have you smoked in the past 12 months: No Number of Cigarettes Smoked Daily: 1 Cigars Per Day: 0 Information on smoking cessation initiated: No 'Breaking Loose' booklet given: 05/17/17 Hx Alcohol Use: No Drug/Substance Use Hx: Yes Substance Use Type: Alcohol, Heroin, Tranquilizers (BENZO) Hx Substance Use Treatment: Yes ([facility]) Patient Lives Alone: No Lives with/in: parents Review of Systems - Review of Systems Able to Perform ROS?: Yes Constitutional: No: Symptoms Reported ABD/GI: No: Symptoms Reported Integumentary: Yes: Erythema, Lumps Neurological: No: Symptoms reported Endocrine: No: Symptoms Reported Hematologic/Lymphatic: No: Symptoms Reported *Physical Exam - Vital Signs Last Vital Signs Temp Pulse Resp BP Pulse Ox 98.3 F 106 H 18 104/65 100 12/15/18 13:20 12/15/18 13:20 12/15/18 13:20 12/15/18 13:20 12/15/18 13:20 - Physical Exam General Appearance: Yes: Nourished, Appropriately Dressed. No: Apparent Distress HEENT: negative: Pale Conjunctivae Neck: positive: Normal Thyroid, Supple Gastrointestinal/Abdominal: positive: Normal Bowel Sounds, Soft. negative: Tenderness Integumentary: positive: Other (noted firm linear raised erythematous area extending from healed horizontal suprapubic incision to anterior aspect of left labia . noted multiple ingrown hairs to center of area without increased warmth , drainage, or fluctulance. total length approx 6" x 1" at thickest point) Neurologic: positive: Motor Strength 5/5 (ambulatory) Medical Decision Making - Medical Decision Making 12/15/18 14:17 CC: tender red area to left groin Exam: noted firm nondrainable area to left mons pubis-labia Plan: bactrim and naprosyn prn (pt does not have an allergy vs GI upset) Pt w/ hx of opioid abuse and already took motrin 800mg, tramadol, and tylenol es for pain. Strict instructions provided for care at home and if s/s worsen *DC/Admit/Observation/Transfer Diagnosis at time of Disposition: Cellulitis - Discharge Dispostion Disposition: HOME Condition at time of disposition: Good - Prescriptions Prescriptions: Naproxen [Naprosyn -] 375 mg PO BID #14 tablet Sulfamethoxazole/Trimethoprim [Bactrim Ds -] 1 tab PO BID #14 tablet - Referrals - Patient Instructions Printed Discharge Instructions: DI for Cellulitis -- Adult Additional Instructions: Please take antibiotics as prescribed. Please apply warm soaks to area 4 times x 15 minutes. Please return here if symptoms worsen. - Post Discharge Activity
== END 2018-12-15 14:24 | disposition home or self-care (01) ==
LOC: JERFT 13:10
DX: L03.314 Cellulitis of groin (principal); E03.9 Hypothyroidism, unspecified; F17.210 Nicotine dependence, cigarettes, uncomplicated; Z98.84 Bariatric surgery status
CPT/HCPCS: 99281-25

== ENCOUNTER 2018-12-16 16:24 | Emergency (ER) | payer OTHER ==
[2018-12-16 16:39] VITALS: BP 125/71; PULSE 74; TEMP 98.6; BMI 29.2
[2018-12-16] MEDS ORDERED: LIDOCAINE 2.5%/PRILOCAINE 2.5% (5 Gram/TUBE) TP ONE ×2 (18:30→18:36)
[2018-12-16] MEDS ORDERED: traMADol HCL 50 MG TABLET PO ONE (18:30)
[2018-12-16] MEDS ORDERED: traMADol HCL 50 MG TABLET ONE (18:36)
--- NOTE | 2018-12-16 20:50 | PDOC ---
"History of Present Illness - General Chief Complaint: Revisit,Wound Recheck Stated Complaint: PAIN Time Seen by Provider: 12/16/18 17:19 History Source: Patient Exam Limitations: No Limitations Past History - Travel Traveled outside of the country in the last 30 days: No Close contact w/someone who was outside of country & ill: No - Past Medical History Allergies/Adverse Reactions: Allergies Allergy/AdvReac Type Severity Reaction Status Date / Time NSAIDS (Non-Steroidal Allergy Verified 12/18/18 16:45 Anti-Inflamma Home Medications: Ambulatory Orders Oxycodone HCl/Acetaminophen [Percocet 5-325 mg Tablet] 1 tab PO Q6H #10 tablet MDD 4 12/16/18 Anemia: No Asthma: No Cancer: No Cardiac Disorders: No CVA: No COPD: No CHF: No DVT: No Dementia: No Diabetes: No GI Disorders: No Disorders: No HTN: No Hypercholesterolemia: No Kidney Stones: No Liver Disease: No Seizures: No Thyroid Disease: Yes (HYPO) - Surgical History Abdominal Surgery: Yes (Gastric bypass in 2010) Appendectomy: No Cardiac Surgery: No Cholecystectomy: No Gastric Stapling: Yes (GASTRIC SLEEVE) Lung Surgery: No Neurologic Surgery: No Orthopedic Surgery: No - Reproductive History PID: No - Immunization History Immunization Up to Date: No - Suicide/Smoking/Psychosocial Hx Smoking History: Never smoked Have you smoked in the past 12 months: No Number of Cigarettes Smoked Daily: 1 Cigars Per Day: 0 Information on smoking cessation initiated: No 'Breaking Loose' booklet given: 05/17/17 Hx Alcohol Use: No Drug/Substance Use Hx: No Substance Use Type: Alcohol, Heroin, Tranquilizers (BENZO) Hx Substance Use Treatment: Yes ([facility]) Review of Systems - Review of Systems Able to Perform ROS?: Yes Comments:: 12/16/18 20:52 CONSTITUTIONAL: Absent: fever, chills, diaphoresis, generalized weakness, malaise, loss of appetite GASTROINTESTINAL: Absent: abdominal pain, abdominal distension, nausea, vomiting, diarrhea, constipation, melena, hematochezia GENITOURINARY: Absent: dysuria, frequency, urgency, hesitancy, hematuria, flank pain, genital pain MUSCULOSKELETAL: Absent: myalgia, arthralgia, joint swelling SKIN: Present: rash to groin Absent: itching, pallor NEUROLOGIC: Absent: headache, focal weakness or paresthesias, dizziness, unsteady gait, seizure, mental status changes, bladder or bowel incontinence PSYCHIATRIC: Absent: anxiety, depression, suicidal or homicidal ideation, hallucinations. Is the patient limited Uzbek proficient: No *Physical Exam - Vital Signs Last Vital Signs Temp Pulse Resp BP Pulse Ox 98.6 F 74 18 125/71 98 12/16/18 16:36 12/16/18 16:36 12/16/18 16:36 12/16/18 16:36 12/16/18 16:36 - Physical Exam Comments: 12/16/18 20:53 GENERAL: The patient is awake, alert, and fully oriented, in no acute distress. HEAD: Normal with no signs of trauma. EYES: Pupils equal, round and reactive to light, extraocular movements intact, sclera anicteric, conjunctiva clear. EXTREMITIES: Normal range of motion, no edema. NEUROLOGICAL: Normal speech, normal gait. PSYCH: Normal mood, normal affect. SKIN: Cellulitis present from the scar to the labia majora with suprapubic induration. No inguanal lymph nodes present. Warm, Dry. ED Treatment Course - RADIOLOGY Radiology Studies Ordered: Category Date Time Status SOFT TISSUE ABDOMEN US [US] Stat Ultrasound 12/16/18 18:30 Completed - Medications Given in the ED: ED Medications Discontinued Medications Generic Name Dose Route Start Last Admin Trade Name Agustín PRN Reason Stop Dose Admin Lidocaine/Prilocaine 1 applic 12/16/18 18:30 12/16/18 18:38 Emla - TP 12/16/18 18:31 1 applic ONCE ONE Administration Tramadol HCl 50 mg 12/16/18 18:30 12/16/18 18:38 Ultram - PO 12/16/18 18:31 50 mg ONCE ONE Administration Medical Decision Making - Medical Decision Making 12/16/18 20:50 The patient is a 23-year-old female with past medical history of substance abuse , presents to the ER today for pain to her groin. Patient states she was seen in the ER 2 days ago for cellulitis to her leg. She states that she felt something bit her. She was seen in our emergency department and given Bactrim. Patient states that since then the area has gotten worse and it is more red and painful. She states that it hurts to sit. Denies drainage from the site. Denies fevers, chills, nausea, vomiting, frequency, urgency, hematuria, history of diabetes. A/P:Cellulitis/abscess On exam pt with significant cellulitis and indruation to the suprapubic area just inferior to her scar. No real area of fluctuance Pt sent for US soft tissue. Findings: Soft tissue swelling in the lower pelvis/pubic region with small complex density measuring 1.3 x 1.1 cm that is seen approximately 3 cm below the scar suggestive of a collection. Rule out abscess. Given location of fluid collection, needle aspiration was attempted at the site , no purulent matter drained Keflex added to the patient's bactrim Given pain percocet ordered to patient's pharmacy. FINANCIAL ADVISOR TRAINEE quired This report was requested by: Mei Munoz | Reference #: [id number] No prescriptions found Area of cellulitis was marked with surgical pen Pt instructed to return to the ED in two days for a wound check Strict return precautions given DC home I discussed the physical exam findings, ancillary test results and final diagnoses with the patient. I answered all of the patient's questions. The patient was satisfied with the care received and felt comfortable with the discharge plan and treatment plan. The Patient agrees to follow up with the primary care physician/specialist within 24-72 hours. Return precautions were given. *DC/Admit/Observation/Transfer Diagnosis at time of Disposition: Cellulitis Qualifiers: Site of cellulitis: trunk Site of cellulitis of trunk: groin Qualified Code(s) : L03.314 - Cellulitis of groin - Discharge Dispostion Disposition: HOME Condition at time of disposition: Stable Decision to Admit order: No - Prescriptions Prescriptions: Oxycodone HCl/Acetaminophen [Percocet 5-325 mg Tablet] 1 tab PO Q6H #10 tablet MDD 4 - Referrals Referrals: Rudy Urbina MD [Staff Physician] - - Patient Instructions Printed Discharge Instructions: DI for Cellulitis -- Adult Additional Instructions: You have cellulitis. This is a skin infection. Please take the Bactrim and Keflex twice a day for one week. Please take all the antibiotics even if you feel better. You may use warm water soaks to the area. Please do this approximately 4-5 times a day. Please avoid shaving the skin around the area of redness. You may take the percocet as needed for pain, one tab every [address] drink or drive after taking this medication as it may make you sleepy. Return to the ED on Thursday for a wound check Return to the emergency department if you have worsening redness (outside of the line drawn), fevers, increasing pain, or have any changes in your symptoms. - Post Discharge Activity Forms/Work/School Notes: Back to Work"
== END 2018-12-16 21:02 | disposition home or self-care (01) ==
LOC: JERFT 16:24
DX: L03.314 Cellulitis of groin (principal)
CPT/HCPCS: 76705-TC; 99281-25

== ENCOUNTER 2018-12-18 16:31 | Observation (INO) | payer OTHER ==
[2018-12-18] MEDS ORDERED: MIDAZOLAM HCL 2 MG/2 ML SINGLE DOSE VIAL IVPUSH ONE ×2 (17:50→19:36)
[2018-12-18] MEDS ORDERED: CLINDAMYCIN 600MG PREMIX IVPB 600 MG/50 ML BAG IVPB ONE ×2 (17:50→17:55)
[2018-12-18] MEDS ORDERED: ACETAMINOPHEN 1000 MG/100 ML VIAL (NON FORMULARY) IVPB ONE (17:50)
[2018-12-18] MEDS ORDERED: ACETAMINOPHEN INJECTION 100 ML IVPB ONE (17:55)
[2018-12-18] MEDS ORDERED: MIDAZOLAM HCL 2 MG/2 ML SINGLE DOSE VIAL ONE ×2 (17:55→18:59)
[2018-12-18] MEDS ORDERED: LIDOCAINE 2.5%/PRILOCAINE 2.5% (5 Gram/TUBE) TP ONE ×2 (18:00→18:02)
--- NOTE | 2018-12-18 18:03 | PDOC ---
History of Present Illness - General Chief Complaint: Revisit,Wound Recheck Stated Complaint: RASH/PAIN Time Seen by Provider: 12/18/18 16:39 History Source: Patient Exam Limitations: No Limitations Past History - Travel Traveled outside of the country in the last 30 days: No Close contact w/someone who was outside of country & ill: No - Past Medical History Allergies/Adverse Reactions: Allergies Allergy/AdvReac Type Severity Reaction Status Date / Time NSAIDS (Non-Steroidal Allergy Verified 12/18/18 16:45 Anti-Inflamma Home Medications: Ambulatory Orders Oxycodone HCl/Acetaminophen [Percocet 5-325 mg Tablet] 1 tab PO Q6H #10 tablet MDD 4 12/16/18 Anemia: No Asthma: No Cancer: No Cardiac Disorders: No CVA: No COPD: No CHF: No DVT: No Dementia: No Diabetes: No GI Disorders: No Disorders: No HTN: No Hypercholesterolemia: No Kidney Stones: No Liver Disease: No Seizures: No Thyroid Disease: Yes (HYPO) - Surgical History Abdominal Surgery: Yes (Gastric bypass in 2010) Appendectomy: No Cardiac Surgery: No Cholecystectomy: No Gastric Stapling: Yes (GASTRIC SLEEVE) Lung Surgery: No Neurologic Surgery: No Orthopedic Surgery: No - Reproductive History PID: No - Immunization History Immunization Up to Date: No - Suicide/Smoking/Psychosocial Hx Smoking History: Unknown if ever smoked Have you smoked in the past 12 months: No Number of Cigarettes Smoked Daily: 1 Cigars Per Day: 0 Information on smoking cessation initiated: No 'Breaking Loose' booklet given: 05/17/17 Hx Alcohol Use: No Drug/Substance Use Hx: No Substance Use Type: Alcohol, Heroin, Tranquilizers (BENZO) Hx Substance Use Treatment: Yes ([facility]) Review of Systems - Review of Systems Able to Perform ROS?: Yes Is the patient limited [place] Islander proficient: No Constitutional: Yes: Weight Stable. No: Chills, Diaphoresis, Fever, Loss of Appetite, Malaise, Weakness HEENTM: No: Blurred Vision, Recent change in vision, Double Vision, Nose Congestion, Throat Pain, Throat Swelling, Difficulty Swallowing Respiratory: No: Cough, Orthopnea, Shortness of Breath Cardiac (ROS): No: Chest Pain, Edema, Irregular Heart Rate, Lightheadedness, Palpitations, Syncope, Chest Tightness ABD/GI: Yes: See HPI. No: Abdominal Distended, Constipated, Diarrhea, Nausea, Poor Appetite, Poor Fluid Intake, Vomiting : Yes: See HPI, Burning, Dysuria. No: Discharge, Frequency, Flank Pain, Pain , Urgency Musculoskeletal: No: Back Pain, Joint Pain, Joint Swelling Integumentary: Yes: See HPI, Change in Color, Erythema, Lesions. No: Rash Neurological: No: Headache, Numbness, Paresthesia, Weakness, Unsteady Gait, Dizziness Psychiatric: No: Sleep Pattern Change, Change in Appetite Endocrine: No: Increased Urine, Change in Weight Hematologic/Lymphatic: No: Anemia, Blood Clots, Easy Bleeding, Easy Bruising All Other Systems: Reviewed and Negative *Physical Exam - Vital Signs Last Vital Signs Temp Pulse Resp BP Pulse Ox 98.6 F 98 H 20 116/64 99 12/18/18 16:38 12/18/18 16:38 12/18/18 16:38 12/18/18 16:38 12/18/18 16:38 - Physical Exam Comments: Vitals stable, pt afebrile. Pt in NAD, normal body habitus. Pt alert and oriented x3. coffee roaster generally intact, muscular strength and sensation intact. Head normocephalic, atraumatic. Eyes PERRLA, EOMI. Oropharynx without erythema or exudates, no LAD b/l. No nasal congestion, hearing intact. Clear heart sounds, S1/S2, no JVD, b/l pedal edema, or heart murmur. Clear lung sounds, no respiratory distress, wheezes, crackles, or accessory muscle use. No abdominal or CVA tenderness to palpation, no rebound, no guarding. Abdomen soft, non-distended, and with normoactive bowel sounds. Skin without jaundice or rash. 12/18/18 18:11 Procedures - Incision and Drainage I&D Site: Left: Groin Anesthesia: 1% Lidocaine w/ Epi Blade Size: 11 Plain Packing: No Dressing: No ED Treatment Course - LABORATORY CBC & Chemistry Diagram: 12/18/18 17:39 12/18/18 17:39 Medical Decision Making - Medical Decision Making Pt was seen at bedside, also will be seen by attending Dr. Felder. Pt presenting with growing abscess and worsening redness to the groin and L thigh. Appears to be superficial groin absces with overlying cellulitis now extending towards the groin/medial thigh. Ordered work-up including CBC, CMP, blood cultures, UA, urine culture, ECG. Will do bedside US to look for superficial cellulitis and fluid collection. Provided 1 g IV ofirmev, 2 mg IV versed, and 600 mg IV clindamycin for antibacterial coverage and pain. Also provided topical EMRA cream to abscess area. Will continue to reassess pt and monitor for symptomatic improvement. 12/18/18 18:13 EMLA cream applied to area. Pt supplied ofirmev and clindamycin. EC12/18/18 18:41 *DC/Admit/Observation/Transfer - Discharge Dispostion Condition at time of disposition: Stable - Referrals - Patient Instructions - Post Discharge Activity
[2018-12-18 18:04] LABS: BASO % 0.8 % (0-2.0); EOS % 0.5 % (0-4.5); HEMATOCRIT 34.9 % (32.4-45.2); HEMOGLOBIN 11.5 GM/dL (10.7-15.3); MCH 27.3 pg (25.7-33.7); MCHC 32.9 g/dl (32.0-36.0); MEAN CELL VOLUME 82.9 fl (80-96); MEAN PLT VOLUME 8.2 fl (7.5-11.1); MONO % 6.6 % (3.8-10.2); NEUT % 79.1 % (42.8-82.8); PLATELET COUNT 252 K/MM3 (134-434); RBC 4.21 M/mm3 (3.60-5.2); RDW 16.7 % (11.6-15.6); WHITE BLOOD COUNT 8.4 K/mm3 (4.0-10.0)
[2018-12-18 18:41] LABS: ALBUMIN 3.5 g/dl (3.4-5.0); ALK PHOS 84 U/L (45-117); ANION GAP 9 MMOL/L (8-16); BILIRUBIN,TOTAL 0.3 mg/dL (0.2-1); BLOOD UREA NITROGEN 16 mg/dL (7-18); CALCIUM 8.6 mg/dL (8.5-10.1); CHLORIDE 103 mmol/L (98-107); CO2 24 mmol/L (21-32); CREATININE 0.5 mg/dL (0.55-1.3); GLUCOSE,RANDOM 80 mg/dL (74-106); POTASSIUM 3.9 mmol/L (3.5-5.1); SGOT/AST 17 U/L (15-37); SGPT/ALT 15 U/L (13-61); SODIUM 136 mmol/L (136-145); TOT PROT 7.4 g/dl (6.4-8.2)
--- NOTE | 2018-12-18 18:43 | PDOC ---
Attending Attestation - HPI HPI: This patient is a 23 year old female with PMHx of hypothyroidism who presents with left groin wound. Patient states that she first noticed the bump 5 days ago. It is unclear if the bump came from shaving or from a possible bug bite. She has been seen in the ED twice before and given oral antibiotics but states that the wound has gotten bigger and has now traveled down her left leg. Allergies: None reported Past surgical history: remote tonsillectomy and gastric sleeve Social history: Everyday Marijuana use. Former cocaine and opioid use. PCP: none as per patient - Physicial Exam PE: GENERAL: Awake, alert, and fully oriented, in mild distress. HEAD: No signs of trauma EYES: PERRLA, EOMI, sclera anicteric, conjunctiva clear ABDOMEN: Soft, nontender, normoactive bowel sounds. No guarding, no rebound. No masses EXTREMITIES: Normal range of motion, no edema. No cords, erythema, or tenderness NEUROLOGICAL: Cranial nerves II through XII grossly intact. Normal speech. SKIN:1x2 cm area of fluctuance in her left suprapubic area with surrounding erythema. Area of streaking erythema down left thigh. <Lisseth Barkley - Last Filed: 12/18/18 19:11> - Resident Resident Name: Elisabeth Daily - Medical Decision Making 12/19/18 01:40 Pt presents to the ED complaining of worsening erythema and pain after 4 days of antibiotics for cellulitis and abscess. + suprapubic abscess. I and D performed in the ED. Patient had difficulty cooperating with procedure, despite Iv sedation and pain control, but there was drainage of approximately 5 cc pus. IV clindamycin started. Will admit to medicine for IV antibiotics. 12/19/18 01:42 <Clarice Felder - Last Filed: 12/19/18 01:42> Attestations - Attestations 12/18/18 18:52 Documentation prepared by Lisseth Barkley, acting as medical esthetician for Clarice Felder MD. <Lisseth Barkley - Last Filed: 12/18/18 19:11>
[2018-12-18] MEDS ORDERED: KETAMINE HCL 200 MG/20 ML VIAL IVPUSH ONE (19:37)
[2018-12-18] MEDS ORDERED: KETAMINE HCL 200 MG/20 ML VIAL ONE (19:59)
--- NOTE | 2018-12-18 20:09 | HP ---
Admitting History and Physical - Primary Care Physician PCP: None - Admission Chief Complaint: L groin swelling and pain History of Present Illness: Pt is a 23 yo F with a signif PMHx of hypothyroidism (not on medication) and substance abuse (had been on methadone for 2 years till 3 years ago), with prior tummy tuck, who presented to the ED with 4 day hx of L groin swelling and pain. Pt reports shaving her groin with disposable blade 2 days prior to onset of symptoms. Last sexual encounter about 1 week ago, with partner. Pt reports consistent use of protection and prior HIV negative and STD tests. Denies any abnormal vaginal discharge or abdominal pain. Pt says she has visited the ED x2 for similar problem, was placed on bactrim for 2 days then bactrim and ceftin which she said she took with no relief. She said there was an attempted drain about 2 days ago which failed to yield, but the area was marked and found to have extended past her mons pubis to the L thigh with redness and pain affecting her while walking. Yesterday she started to be in severe pain with some dysuria that has resolved, and noted diaphoresis today with one episode of vomiting but no subjective fevers. Pt was put on percocet at home for the pain these past days and received 4mg of versed in addition to topical liocaine for I&D in the ED. During the ID the abscess appeared to be loculated with minimum drainage. ED course: US which showed fluid in L groin, I&D done in ED, with cultures pending Pain mx- versed 2mg x2, Iv tylenol, iv ketamine 20mg, topical lidocaine VSS- stable CBC, CMP, wnl Abd US 12/16: Ultrasound soft tissue of the abdomen Grayscale and color Doppler images of the region of interest, pubic region were obtained and submitted for evaluation. There is diffuse soft tissue swelling with a small superficial complex density measuring 1.1 x 1.3 cm which is approximately 3 cm below a C- section scar suggestive of fluid collection. Rule out an abscess. Impression: Soft tissue swelling in the lower pelvis/pubic region with a small complex density measuring 1.3 x 1.1 cm that is seen approximately 3 cm below the C- section scar suggestive of a collection. Rule out an abscess. Correlate clinically. History Source: Patient, Medical Record Limitations to Obtaining History: No Limitations - Past Medical History ...LMP: 12/07/18 Psych: Yes: Addictions Musculoskeletal: Yes: Other (Abscess L groin) - Smoking History Smoking history: Unknown if ever smoked Have you smoked in the past 12 months: No Aproximately how many cigarettes per day: 1 - Alcohol/Substance Use Hx Alcohol Use: No Home Medications - Allergies Allergies/Adverse Reactions: Allergies Allergy/AdvReac Type Severity Reaction Status Date / Time NSAIDS (Non-Steroidal Allergy Verified 12/18/18 16:45 Anti-Inflamma - Home Medications Home Medications: Ambulatory Orders Oxycodone HCl/Acetaminophen [Percocet 5-325 mg Tablet] 1 tab PO Q6H #10 tablet MDD 4 12/16/18 Family Disease History - Family Disease History Family Disease History: Diabetes: Grandparent, Father, Other: Mother (etoh/ BENZO) Review of Systems - Review of Systems Constitutional: reports: Diaphoresis. denies: Fever HENT: denies: No Symptoms Neck: denies: Stiffness Cardiovascular: denies: Chest Pain Respiratory: denies: Cough, SOB Gastrointestinal: reports: Vomiting Genitourinary: reports: Burning (resolved). denies: Dysuria, Flank Pain, Vaginal Bleeding Musculoskeletal: reports: Extremity Pain (L groin/thigh pain) Integumentary: reports: Erythema, Incision (I&D- Lgroin) Neurological: denies: Change in LOC, Change in Speech, Confusion, Seizure, Tremors Psychiatric: reports: Anxiety Physical Examination Vital Signs: Vital Signs Temperature 98.6 F 12/18/18 16:38 Pulse Rate 98 H 12/18/18 16:38 Respiratory Rate 20 12/18/18 16:38 Blood Pressure 116/64 12/18/18 16:38 O2 Sat by Pulse Oximetry (%) 99 12/18/18 16:38 Constitutional: Yes: Well Nourished, Anxious Eyes: Yes: Conjunctiva Clear, EOM Intact HENT: Yes: Atraumatic. No: Pharyngeal Erythema Neck: Yes: Supple Cardiovascular: Yes: S1, S2 Respiratory: Yes: CTA Bilaterally Gastrointestinal: Yes: Normal Bowel Sounds, Soft Renal/: Yes: Other (Erythematous, firm to fluctuant area over L groin exteding into L upper thigh measuring [id number] gluteal red macule) Extremities: No: Calf Tenderness Edema: No Integumentary: Yes: Body Piercing (lower lip) Wound/Incision: Yes: Draining Neurological: Yes: Alert, Oriented. No: Tremors ...Motor Strength: WNL Psychiatric: Yes: Alert, Oriented Labs: CBC, BMP 12/18/18 17:39 12/18/18 17:39 Imaging - Results Ultrasound: Report Reviewed, Image Reviewed Assessment/Plan Current Medications Ambulatory Orders Oxycodone HCl/Acetaminophen [Percocet 5-325 mg Tablet] 1 tab PO Q6H #10 tablet MDD 4 12/16/18 Clindamycin Phosphate (Cleocin 600 Mg Premix Ivpb -) 600 mg in 50 mls @ 100 mls /hr IVPB Q8H-IV KONG; Protocol Morphine Sulfate (Morphine Sulfate) 4 mg IVPUSH Q6H PRN PRN Reason: PAIN LEVEL 7 - 10 Assessment/Plan: Pt is a 23 yo F with a signif PMHx of hypothyroidism (not on medication) and substance abuse (had been on methadone for 2 years till 3 years ago), with prior tummy tuck, who presented to the ED with 4 day hx of L groin swelling and pain. #L groin abscess: Likely as a result of ingrowing hair after a shave Progressed on PO bactrim/ceftin Clindamycin iv 600mg Q8H ID consult- Dr Jones I&D done in ED Still draining pus like sanguinous fluid Surgical consult- Dr Timmons for possible repeat I&D NPO after midnight Pain mx- Iv morphine 4mg Q6H Pending Cx Pending Bcx Area marked #Substance abuse hx Pt appears to have low pain treshold with probable tolerance to opiates Pt reports being on methadone for 2 years till 3 months ago Now on CBD and nicotine pen Utox Hcg-negative Urine Chlamydia/GC Monitor for withdrawal #hypothyroidism Pt not on medication #FEN No standing fluids Monitor lytes, replete as needed Regular diet NPO after midnight for surgical eval #PPx SCDs for now (may get repeat I&D) No need for GI #Dispo Obs May be dcd after I&D Visit type - Emergency Visit Emergency Visit: Yes Care time: The patient presented to the Emergency Department on the above date and was hospitalized for further evaluation of their emergent condition. - New Patient This patient is new to me today: Yes Date on this admission: 12/18/18 - Critical Care Critical Care patient: No
[2018-12-18] MEDS: CLINDAMYCIN 600MG PREMIX IVPB 600 MG/50 ML BAG IVPB SCH (21:06)
[2018-12-18 23:52] VITALS: BMI 30.7
--- NOTE | 2018-12-19 00:40 | PN ---
Teaching Attending Note Name of Resident: Mi Spaulding ATTENDING PHYSICIAN STATEMENT I saw and evaluated the patient. I reviewed the resident's note and discussed the case with the resident. I agree with the resident's findings and plan as documented. SUBJECTIVE: OBJECTIVE: patient refused to be examined by a male doctor ASSESSMENT AND PLAN: this is a 23 y/o F patient presented for an abscess drainage after the patient had failed outpatient antibiotic treatment patient was refusing me to evaluate the lesion, so i cannot properly describe it , nor can i measure it or see the affected area plan: admit to [facility] [place] consult surgery consult ID start on clidamycin 600mg q8hr pain control
[2018-12-19] MEDS: CLINDAMYCIN 600MG PREMIX IVPB 600 MG/50 ML BAG IVPB SCH ×2 (01:04→09:49)
[2018-12-19] MEDS: morphine SULFATE 4 MG/ML VIAL IVPUSH PRN ×2 (03:58→09:45)
[2018-12-19] MEDS ORDERED: PT OWN MED DRAWER 7, Y5N ONE (05:15)
[2018-12-19 06:58] LABS: BASO % 0.4 % (0-2.0); EOS % 1.5 % (0-4.5); HEMATOCRIT 32.1 % (32.4-45.2); HEMOGLOBIN 10.8 GM/dL (10.7-15.3); LYMPH % 27.2 % (8-40); MCH 27.4 pg (25.7-33.7); MCHC 33.6 g/dl (32.0-36.0); MEAN CELL VOLUME 81.4 fl (80-96); MEAN PLT VOLUME 7.6 fl (7.5-11.1); MONO % 7.8 % (3.8-10.2); NEUT % 63.1 % (42.8-82.8); PLATELET COUNT 245 K/MM3 (134-434); RBC 3.95 M/mm3 (3.60-5.2); RDW 16.4 % (11.6-15.6); WHITE BLOOD COUNT 6.1 K/mm3 (4.0-10.0)
[2018-12-19 07:32] LABS: INR 1.15 (0.83-1.09); PROTHROMBIN TIME (PATIENT) 13.6 SEC (9.7-13.0)
[2018-12-19 07:34] LABS: ACTIVATED PTT 32.5 SECONDS (25.2-36.5)
[2018-12-19 07:48] LABS: ALBUMIN 3.3 g/dl (3.4-5.0); ALK PHOS 80 U/L (45-117); ANION GAP 8 MMOL/L (8-16); BILIRUBIN,TOTAL 0.3 mg/dL (0.2-1); BLOOD UREA NITROGEN 13 mg/dL (7-18); CHLORIDE 106 mmol/L (98-107); CO2 26 mmol/L (21-32); CREATININE 0.5 mg/dL (0.55-1.3); GLUCOSE,RANDOM 80 mg/dL (74-106); MAGNESIUM 2.2 mg/dL (1.8-2.4); PHOSPHOROUS 3.9 mg/dL (2.5-4.9); POTASSIUM 3.6 mmol/L (3.5-5.1); SGOT/AST 9 U/L (15-37); SGPT/ALT 12 U/L (13-61); SODIUM 140 mmol/L (136-145); TOT PROT 6.7 g/dl (6.4-8.2)
--- NOTE | 2018-12-19 12:18 | PN ---
Progress Note (short form) - Note Progress Note: ID consult dictated imp/reccd 23 yo female admitted with suprapubic abscess she shaves in the groin area and came to ED on 12/15 with complains of pain in the left groin- the area was indurated, she was discharged on Bactrim she returned on 12/16 and sonogram showed a small collection- it ws needle aspirated unsuccessfully and she was discharged on kefles she returned last night with continued pain 5 cc of pus removed from the abscess no fevers denies ivdu reports she is HIV negative abscess mons pubis awaiting surgery evaluation switch to vanco/zosyn there is some clindamycin resistance to MRSA so until cultures are back would use vancomycin/zosyn Problem List - Problems (1) Abscess Code(s): L02.91 - CUTANEOUS ABSCESS, UNSPECIFIED
--- NOTE | 2018-12-19 12:56 | CONSULT ---
Consult Consult Specialty:: General Surgery Reason for Consultation:: Mons pubis abscess? - History of Present Illness Chief Complaint: groin pain History of Present Illness: 23 yo female PMH hypothyroidism (not on medication), obesity, substance abuse ( had been on methadone for 2 years till 3 years ago), with prior tummy tuck, who presented to the ED with 4 day hx of L groin swelling and pain. Pt reports shaving her groin with disposable blade 2 days prior to onset of symptoms. Last sexual encounter about 1 week ago, with partner. Pt reports consistent use of protection and prior HIV negative and STD tests. Denies any abnormal vaginal discharge or abdominal pain. Pt says she has visited the ED x2 for similar problem, was placed on bactrim for 2 days then bactrim and ceftin which she said she took with no relief. She said there was an attempted drain about 2 days ago which failed to yield, but the area was marked and found to have extended past her mons pubis to the L thigh with redness and pain affecting her while walking. Yesterday she started to be in severe pain with some dysuria that has resolved, and noted diaphoresis today with one episode of vomiting but no subjective fevers. Pt was put on percocet at home for the pain these past days and received 4mg of versed in addition to topical liocaine for I&D in the ED. During the ID the abscess appeared to be loculated with minimum drainage. we were called to assess. - History Source History Provided By: Patient, Medical Record Limitations to Obtaining History: No Limitations - Past Medical History ...LMP: 12/07/18 ...: No Psych: Yes: Addictions Musculoskeletal: Yes: Other (Abscess L groin) - Alcohol/Substance Use Hx Alcohol Use: No - Smoking History Smoking history: Unknown if ever smoked Have you smoked in the past 12 months: No Aproximately how many cigarettes per day: 1 Home Medications - Allergies Allergies/Adverse Reactions: Allergies Allergy/AdvReac Type Severity Reaction Status Date / Time NSAIDS (Non-Steroidal Allergy Verified 12/18/18 16:45 Anti-Inflamma - Home Medications Home Medications: Ambulatory Orders Oxycodone HCl/Acetaminophen [Percocet 5-325 mg Tablet] 1 tab PO Q6H #10 tablet MDD 4 12/16/18 Family Disease History - Family Disease History Family Disease History: Diabetes: Grandparent, Father, Other: Mother (etoh/ BENZO) Physical Exam Vital Signs: Vital Signs Temperature 97.9 F 12/19/18 09:31 Pulse Rate 73 12/19/18 09:31 Respiratory Rate 20 12/19/18 09:31 Blood Pressure 106/55 L 12/19/18 09:31 O2 Sat by Pulse Oximetry (%) 99 12/18/18 21:00 Constitutional: Yes: Well Nourished, No Distress, Calm, Obese Eyes: Yes: Conjunctiva Clear, EOM Intact HENT: Yes: Atraumatic, Normocephalic Neck: Yes: Supple, Trachea Midline Cardiovascular: Yes: Regular Rate and Rhythm, S1, S2 Respiratory: Yes: Regular, CTA Bilaterally Gastrointestinal: Yes: Normal Bowel Sounds, Soft ...Rectal Exam: Yes: Deferred, Induration (left mons pubus is a draining abscess ) Renal/: No: CVA Tenderness - Left, CVA Tenderness - Right Musculoskeletal: No: Muscle Pain, Muscle Weakness Extremities: No: Cool, Cyanosis Edema: No Peripheral Pulses WNL: Yes Integumentary: No: Jaundice, Rash, Skin Tear Wound/Incision: Yes: Clean/Dry, Well Approximated Neurological: Yes: Alert, Oriented Psychiatric: Yes: Alert, Oriented Labs: CBC, BMP 12/19/18 06:10 12/19/18 06:10 Problem List - Problems (1) Abscess of female genitalia Assessment/Plan: 23yo female with a mons pubis abscess, appears to be training. No acute intervention from general surgery. ASSOCIATE BRAND MANAGER consultation for management STD screening recall as needed Thank you for the opportunity to participate in the care of this patient. Code(s): N73.9 - FEMALE PELVIC INFLAMMATORY DISEASE, UNSPECIFIED (2) Cellulitis Code(s): L03.90 - CELLULITIS, UNSPECIFIED Qualifiers: Site of cellulitis: trunk Site of cellulitis of trunk: groin Qualified Code(s): L03.314 - Cellulitis of groin (3) Drug-induced mood disorder Code(s): F19.94 - OTH PSYCHOACTIVE SUBSTANCE USE, UNSP W MOOD DISORDER (4) Methadone use Code(s): F11.20 - OPIOID DEPENDENCE, UNCOMPLICATED (5) Opioid dependence with withdrawal Code(s): F11.23 - OPIOID DEPENDENCE WITH WITHDRAWAL (6) Panic attacks Code(s): F41.0 - PANIC DISORDER [EPISODIC PAROXYSMAL ANXIETY] (7) Substance-induced anxiety disorder Code(s): F19.980 - OTH PSYCHOACTIVE SUBSTANCE USE, UNSP W ANXIETY DISORDER (8) Substance-induced sleep disorder Code(s): F19.982 - OTH PSYCHOACTIVE SUBSTANCE USE, UNSP W SLEEP DISORDER; T50.904A - POISONING BY UNSP DRUG/MEDS/BIOL SUBST, UNDETERMINED, INIT
[2018-12-19] MEDS ORDERED: PIPERACILLIN/TAZOBACTAM 3.375 GM VIAL IVPB ONE ×2 (12:58→18:03)
[2018-12-19] MEDS ORDERED: DEXTROSE 5%-WATER - 50 ML IVPB ONE ×2 (12:58→18:03)
[2018-12-19] MEDS: PIPERACILLIN/TAZOB 3.375 GM 3.375 GM in DEXTROSE 5%-WATER - 50 ML IVPB SCH ×2 (13:13→19:00)
[2018-12-19] MEDS: VANCOMYCIN 1,250 MG in DEXTROSE 5%-WATER - 250 ML IVPB SCH (13:59)
[2018-12-19] MEDS ORDERED: KETOROLAC TROMETHAMINE 30 MG/1 ML VIAL IVPUSH PRN (14:38)
[2018-12-19] MEDS ORDERED: ACETAMINOPHEN 500 MG TABLET (FP) PO PRN (14:39)
[2018-12-19] MEDS ORDERED: ACETAMINOPHEN 1000 MG/100 ML VIAL (NON FORMULARY) IVPB ONE (15:04)
[2018-12-19] MEDS ORDERED: MORPHINE SULFATE 2 MG/ML VIAL IVPUSH STA (15:04)
--- NOTE | 2018-12-19 17:23 | PN ---
Progress Note (short form) - Note Progress Note: SUBJECTIVE: Complains of ongoing pain and tenderness groin area down to L inner thigh. No fever/chills/nausea/vomiting. OBJECTIVE: Afebrile, Hemodynamically Stable. Last Vital Signs Temp Pulse Resp BP Pulse Ox 97.3 F L 69 20 114/57 L 99 12/19/18 15:44 12/19/18 15:44 12/19/18 15:44 12/19/18 15:44 12/18/18 21:00 HEENT - Atraumatic, Normocephalic. Heart - S1, S2, RRR, soft SM Lungs - clear to auscultation Abdomen - Soft, non-tender. Bowel Sounds normal. - mons pubis abscess draining s/p I and D in ED Extremities - no edema, no calf tenderness Laboratory Results - last 24 hr 12/18/18 12/18/18 12/18/18 17:39 17:39 17:39 WBC 8.4 RBC 4.21 Hgb 11.5 Hct 34.9 MCV 82.9 MCH 27.3 MCHC 32.9 RDW 16.7 H Plt Count 252 MPV 8.2 Absolute Neuts (auto) 6.7 Neutrophils % 79.1 D Lymphocytes % 13.0 D Monocytes % 6.6 Eosinophils % 0.5 D Basophils % 0.8 Nucleated RBC % 0 PT with INR INR PTT (Actin FS) Sodium 136 Potassium 3.9 Chloride 103 Carbon Dioxide 24 Anion Gap 9 BUN 16 Creatinine 0.5 L Creat Clearance w eGFR 151.58 Random Glucose 80 Calcium 8.6 Phosphorus Magnesium Total Bilirubin 0.3 AST 17 ALT 15 Alkaline Phosphatase 84 Total Protein 7.4 Albumin 3.5 Serum , Qual Negative 12/19/18 12/19/18 12/19/18 06:10 06:10 06:10 WBC 6.1 RBC 3.95 Hgb 10.8 Hct 32.1 L MCV 81.4 MCH 27.4 MCHC 33.6 RDW 16.4 H Plt Count 245 MPV 7.6 Absolute Neuts (auto) 3.9 Neutrophils % 63.1 D Lymphocytes % 27.2 D Monocytes % 7.8 Eosinophils % 1.5 D Basophils % 0.4 Nucleated RBC % 0 PT with INR 13.60 H INR 1.15 H PTT (Actin FS) 32.5 Sodium 140 Potassium 3.6 Chloride 106 Carbon Dioxide 26 Anion Gap 8 BUN 13 Creatinine 0.5 L Creat Clearance w eGFR 151.58 Random Glucose 80 Calcium 8.0 L Phosphorus 3.9 Magnesium 2.2 Total Bilirubin 0.3 AST 9 L ALT 12 L Alkaline Phosphatase 80 Total Protein 6.7 Albumin 3.3 L Serum , Qual Current Medications Generic Name Dose Route Start Last Admin Trade Name Freq PRN Reason Stop Dose Admin Acetaminophen 1,000 mg 12/19/18 14:39 Tylenol - PO Q6H PRN PAIN Vancomycin HCl 1,250 mg/ 250 mls @ 166.667 mls/hr 12/19/18 12:15 12/19/18 13: 59 Dextrose IVPB 166.667 mls/hr Q12H KONG Administration Protocol Piperacillin Sod/Tazobactam 50 mls @ 100 mls/hr 12/19/18 12:15 12/19/18 13:13 Sod 3.375 gm/ Dextrose IVPB 100 mls/hr Q8H-IV KONG Administration Protocol Morphine Sulfate 4 mg 12/18/18 20:03 12/19/18 09:45 Morphine Sulfate IVPUSH 4 mg Q6H PRN Administration PAIN LEVEL 7 - 10 ASSESSMENT/PLAN: 23 year old female with history of Hypothyroidism (not on medication) and substance abuse (previously on Methadone), s/p Abdominoplasty, presented to ED with 4 days of pubic swelling/tenderness after shaving, spreading down L thigh, s/p trial of Bactrim and Ceftin, re-presented and underwent I and D in ED which was not completed due to pain. Abd US 12/16: Ultrasound soft tissue of the abdomen Grayscale and color Doppler images of the region of interest, pubic region were obtained and submitted for evaluation. There is diffuse soft tissue swelling with a small superficial complex density measuring 1.1 x 1.3 cm which is approximately 3 cm below a C- section scar suggestive of fluid collection. Rule out an abscess. Impression: Soft tissue swelling in the lower pelvis/pubic region with a small complex density measuring 1.3 x 1.1 cm that is seen approximately 3 cm below the C- section scar suggestive of a collection. Rule out an abscess. Correlate clinically. 1. Abscess Mons Pubis, extending to L thigh Failed therapy with oral Bactrim and Ceftin Partial I and D by ED IV Clindamycin changed to Zosyn/Vanco by ID Blood/Wound Cx pending Surgery evaluated and recommended BUSINESS LAW TEACHER consult. Afebrile, Hemodynamically Stable. 2. History of Substance Abuse Previously on Methadone Will discontinue Morphine for pain if no surgical intervention planned. 3. Hypothyroidsim - not on medication DVT Px - Heparin SQ Visit type - Emergency Visit Emergency Visit: Yes ED Registration Date: 12/18/18 Care time: The patient presented to the Emergency Department on the above date and was hospitalized for further evaluation of their emergent condition. - New Patient This patient is new to me today: Yes Date on this admission: 12/19/18 - Critical Care Critical Care patient: No - Discharge Referral Referred to [facility] No
[2018-12-19] MEDS ORDERED: morphine SULFATE 4 MG/ML VIAL IVPUSH PRN (17:26)
[2018-12-19] MEDS: HEPARIN NA (PORCINE) 5,000 UNITS/ML 1ML VIAL SQ SCH (21:20)
--- NOTE | 2018-12-19 21:55 | CONS ---
DATE OF CONSULTATION: DATE OF DICTATION: 12/19/2018 REQUESTING PROVIDER: Hospitalist Service This is a 23-year-old woman who was admitted with a suprapubic abscess. She states it is in the groin area and she came to the ER at that time with complaints of pain in the left groin. The area was indurated. She was discharged on Bactrim. She never had any fever. She returned on the and the sonogram showed a small collection. It was needle aspirated unsuccessfully. She was discharged on Keflex to take along with the Bactrim. She returned again on the night of the with continued pain. She had drainage done of 5 mL of pus from the abscess. She has had no fever. She denies intravenous drug use. She states that she is HIV negative and has been tested multiple times. PAST MEDICAL HISTORY: Notable for hypothyroidism and substance use. SURGICAL HISTORY: Notable for tummy tuck. ALLERGIES: NONSTEROIDAL ANTIINFLAMMATORY DRUGS, WHICH UPSET HER STOMACH. MEDICATIONS: When she was discharged the last time from the emergency room, she was supposed to be taking Bactrim, Keflex, and she was given some Percocet. FAMILY HISTORY: Notable for diabetes in a grandparent and father. SOCIAL HISTORY: She lives here in [place]. She denies any intravenous drug use. She has been sexually active. Reports she is HIV negative. REVIEW OF SYSTEMS: There is no fever. She reports pain at the induration site. PHYSICAL EXAMINATION: Vital Signs: Temperature is 97.9, pulse is 69, blood pressure is 106/65, respiratory rate is 20. She is saturating 96% on room air. HEENT: She is normocephalic. Her eyes are anicteric. Neck: Supple. Lungs: Clear to auscultation. Heart: Regular rate and rhythm. Abdomen: Soft, nontender. She has a well-healed tummy tuck scar to the lower abdomen. Below it, she has shaved and she has an area of swelling with induration and pain, primarily on the left side of her mons pubis. She has no streaking to her legs. LABORATORY: Notable for a white count of 6.1, hemoglobin 10.8, platelets of 245. BUN is 13, creatinine 0.5. Serum test is negative. Cultures are pending. IN SUMMARY: This is a young woman with an abscess in the area of her mons pubis, awaiting Surgery evaluation. It has been partially drained. Would switch to vancomycin and Zosyn. There is some clindamycin resistance to MRSA. Until the cultures are back, I would use this combination instead. Further recommendations to follow. WALLY JOSÉ M.D. [id number]
[2018-12-20] MEDS ORDERED: PT OWN MED DRAWER 7, Y5N ONE ×3 (00:45→20:28)
[2018-12-20] MEDS ORDERED: PIPERACILLIN/TAZOBACTAM 3.375 GM VIAL IVPB ONE ×2 (00:48→08:58)
[2018-12-20] MEDS ORDERED: DEXTROSE 5%-WATER - 50 ML IVPB ONE ×2 (00:48→08:58)
[2018-12-20] MEDS: VANCOMYCIN 1,250 MG in DEXTROSE 5%-WATER - 250 ML IVPB SCH ×2 (00:52→12:43)
[2018-12-20] MEDS: PIPERACILLIN/TAZOB 3.375 GM 3.375 GM in DEXTROSE 5%-WATER - 50 ML IVPB SCH ×2 (04:14→09:11)
[2018-12-20] MEDS: HEPARIN NA (PORCINE) 5,000 UNITS/ML 1ML VIAL SQ SCH ×3 (05:13→22:54)
[2018-12-20] MEDS: CLOTRIMAZOLE/BETAMET DIPROP 15 GM TUBE TP SCH ×2 (06:25→16:53)
--- NOTE | 2018-12-20 08:27 | PN ---
Progress Note (short form) - Note Progress Note: FLOWER CUTTER CONSULT. Note dictated. Mons pubis cutaneous abscess. Responding to therapy. Mild vulvar irritation. No digital media manager intervention needed. Lotrisone externaly for vulvar irritation. Pt. needs digital media manager follow up for Pap, STI screen, control, etc. Thank you
[2018-12-20] MEDS ORDERED: CLOTRIMAZOLE/BETAMET DIPROP 15 GM TUBE TP SCH (09:05)
--- NOTE | 2018-12-20 10:33 | EKG ---
Test Reason : Blood Pressure : / mmHG Vent. Rate : 082 BPM Atrial Rate : 082 BPM P-R Int : 144 ms QRS Dur : 076 ms QT Int : 368 ms P-R-T Axes : 015 047 037 degrees QTc Int : 429 ms NORMAL SINUS RHYTHM NORMAL ECG WHEN COMPARED WITH ECG OF 07-DEC-2018 18:28, NO SIGNIFICANT CHANGE WAS FOUND Confirmed by SHARON ANGELA MD ([id number]) on 12/20/2018 10:33:11 AM Referred By: Confirmed By:SHARON ANGELA MD
--- NOTE | 2018-12-20 11:02 | PN ---
Physical Exam: SUBJECTIVE: Patient seen and examined at bedside this morning. She endorses pain at the site of mons pubis abscess. Denies drainage, or bleeding from abscess overnight. She denies subjective fevers, chills, shortness of breath, chest pain, palpitations, abdominal pain, nausea, vomiting. OBJECTIVE: Vital Signs Period Temp Pulse Resp BP Sys/Martinez Pulse Ox Last 24 Hr 97.3 F-98.3 F 65-82 20-20 90-114/41-66 96-96 GENERAL: The patient is awake, alert, and fully oriented, in no acute distress. HEAD: Normocephalic, atraumatic. EYES: PERRL, extraocular movements intact, sclera anicteric, conjunctiva clear. ENT: Oropharynx clear, without erythema or exudates. Moist mucous membranes. NECK: Trachea midline, full range of motion. Supple without lymphadenopathy. LUNGS: Breath sounds equal, clear to auscultation bilaterally, no wheezes, no crackles. No accessory muscle use. HEART: Regular rate and rhythm, S1, S2 without murmur, rub or gallop. ABDOMEN: Soft, nondistended, nontender to light and deep palpation x4 quadrants , no rebound tenderness, no guarding. Normoactive bowel sounds x4 quadrants. no hepatosplenomegaly, no masses. EXTREMITIES: 2+ radial, dorsalis pedis pulses bilaterally. Warm, well-perfused. No lower extremity edema bilaterally. NEUROLOGICAL: Cranial nerves II through XII grossly intact. Normal speech. No gross focal deficits. PSYCH: Normal mood, normal affect upon my encounter. SKIN: Warm, dry. 4cm x 3cm indurated abscess noted overlying left mons pubis. No discharge, non draining. Examined with RN as hand tufter. Active Medications Generic Name Dose Route Start Last Admin Trade Name Freq PRN Reason Stop Dose Admin Acetaminophen 1,000 mg 12/19/18 14:39 Tylenol - PO Q6H PRN PAIN Clotrimazole 1 applic 12/20/18 10:00 Lotrisone Cream (Small Tube) TP BID [facility] Heparin Sodium (Porcine) 5,000 unit 12/19/18 22:00 12/20/18 05:13 Heparin - SQ Not Given TID KONG Vancomycin HCl 1,250 mg/ 250 mls @ 166.667 mls/hr 12/19/18 12:15 12/20/18 00: 52 Dextrose IVPB 166.667 mls/hr Q12H KONG Administration Protocol Piperacillin Sod/Tazobactam 50 mls @ 100 mls/hr 12/19/18 12:15 12/20/18 09:11 Sod 3.375 gm/ Dextrose IVPB 100 mls/hr Q8H-IV KONG Administration Protocol Morphine Sulfate 3 mg 12/19/18 17:26 12/20/18 09:10 Morphine Sulfate IVPUSH 3 mg Q6H PRN Administration PAIN LEVEL 7 - 10 ASSESSMENT/PLAN: Patient is a 23 year old female with history of hypothyroidism, polysubstance abuse, presented with complaint of left groin pain and swelling. Abscess overlying mons- pubis -Abdominal US shows 1.3 x 1.1cm density upon admission. -Patient is s/p incision and drainage done in ED -General surgery consult (Dr. Timmons) appreciated. -ULTRASOUND MANAGER consult (Dr. Scott) appreciated. Patient will require outpatient follow up. -Would culture grows presumtpive MSSA -Blood cultures negative for growth at 24 hours incubation -ID consult (Dr. Jones) appreciated. -Zosyn, Vancomycin switched to Unasyn 1.5 grams IV Q6 hours -Clotimazole cream BID -Pain control with Tylenol 1000mg PO Q6 hours PRN History of polysubstance abuse -Patient reports that she last used methadone three years ago -Monitor for signs of withdrawal. Hypothyroidism -Currently not on medication -Patient will require outpatient follow-up with endocrinology FEN -No IV fluids indicated -Follow CMP -Regular diet Prophylaxis -Heparin 5000u subq TID Disposition -Continue care in medical- surgical floor Visit type - Emergency Visit Emergency Visit: Yes ED Registration Date: 12/18/18 Care time: The patient presented to the Emergency Department on the above date and was hospitalized for further evaluation of their emergent condition. - New Patient This patient is new to me today: Yes Date on this admission: 12/20/18 - Critical Care Critical Care patient: No - Discharge Referral Referred to [facility] No
--- NOTE | 2018-12-20 11:22 | CONS ---
DATE OF CONSULTATION: DATE OF DICTATION: 12/20/2018 GYNECOLOGICAL CONSULTATION The patient is a 23-year-old white female who was seen in consultation. Consultation was requested by the hospitalist, Dr. Drake Mistry. Patient had recent history with infection in the mons pubis area. She was on various antibiotics in the emergency room, and last night she was seen with cutaneous abscess. Abscess was partially drained, and patient was admitted to the hospital. Following ID consultation, she was placed on IV Unasyn and vancomycin. Patient complains of a great deal of pain from the mons pubis area radiating to upper thighs. She also complains of mild vulvar irritation in the anterior aspect of her external genitalia. She is, however, significantly improved after antibiotics were started. Patient thinks this is a result of a spider bite. It is more likely result of shaving. Patient is para 0. She is sexually active using condoms and withdrawals. She has not had FINANCIAL PROJECT MANAGER examination or Pap smear for a long time, if ever. She feels well otherwise. PAST MEDICAL HISTORY: Somewhat suspicious for opiate abuse, but essentially unremarkable otherwise. PHYSICAL EXAMINATION: Examination: Induration in the left aspect of the mons pubis without fluctuation. Area of drainage from yesterday which is not draining anymore. Lymph node not significantly enlarged. Anterior part of vulva shows minimal irritation but no significant discharge or other problems. Bimanual Examination: Deferred. Patient still is quite uncomfortable. IMPRESSION: 1. Mons pubis cutaneous abscess, drained, cultures pending, improving with intravenous antibiotics. 2. Mild vulvar irritation. PLAN: 1. Continue present treatment. No FINANCIAL PROJECT MANAGER further evaluation needed. 2. Lotrisone recommended for the external irritation. 3. Strongly recommend followup gynecological visit after discharge, Pap smear, control counseling, etc. The patient is saying that she wants to have it done and will schedule an appointment. Thank you very much for the courteous of this consultation. MD ELIECER LANDEROS/[id number]
--- NOTE | 2018-12-20 12:21 | PN ---
Progress Note (short form) - Note Progress Note: feels improved still some drainage Vital Signs Period Temp Pulse Resp BP Sys/Martinez Pulse Ox Last 24 Hr 97.3 F-98.3 F 65-82 20-20 90-114/41-66 96-96 cor-rrr lungs clear abd soft,nt softer mons pubis, some drainage on the gauze ext no edema CBC, BMP 12/19/18 06:10 12/19/18 06:10 Microbiology 12/18/18 19:39 Abscess Gram Stain - Final 12/18/18 19:39 Abscess Wound Culture - Preliminary Presumptive Mssa (Pbp2a Neg) 12/18/18 17:39 Blood - Peripheral Venous Blood Culture - Preliminary NO GROWTH OBTAINED AFTER 24 HOURS, INCUBATION TO CONTINUE FOR 4 DAYS. 12/18/18 17:39 Blood - Peripheral Venous Blood Culture - Preliminary NO GROWTH OBTAINED AFTER 24 HOURS, INCUBATION TO CONTINUE FOR 4 DAYS. imp/reccd abscess mons pubis awaiting surgery evaluation seen by surgery and gynecology, no plans for furher drainage d/c vanco/zosyn switch to unasyn warm compresses hopefully home in am on oral antibiotics Problem List - Problems (1) Abscess Code(s): L02.91 - CUTANEOUS ABSCESS, UNSPECIFIED
--- NOTE | 2018-12-20 13:21 | PN ---
Teaching Attending Note Name of Resident: Tereso Cowart ATTENDING PHYSICIAN STATEMENT I saw and evaluated the patient. I reviewed the resident's note and discussed the case with the resident. I agree with the resident's findings and plan as documented. SUBJECTIVE: Some improvement in pain and tenderness groin area down to L inner thigh. No fever/chills/nausea/vomiting. OBJECTIVE: Afebrile, Hemodynamically Stable. Last Vital Signs Temp Pulse Resp BP Pulse Ox 98 F 65 20 114/65 96 12/20/18 09:24 12/20/18 09:24 12/20/18 09:24 12/20/18 09:24 12/20/18 09:00 Heart - S1, S2, RRR, soft SM Lungs - clear to auscultation Abdomen - Soft, non-tender. Bowel Sounds normal. - mons pubis abscess draining s/p I and D in ED Extremities - no edema, no calf tenderness Current Medications Generic Name Dose Route Start Last Admin Trade Name Freq PRN Reason Stop Dose Admin Acetaminophen 1,000 mg 12/19/18 14:39 Tylenol - PO Q6H PRN PAIN Clotrimazole 1 applic 12/20/18 10:00 Lotrisone Cream (Small Tube) TP BID KONG Heparin Sodium (Porcine) 5,000 unit 12/19/18 22:00 12/20/18 05:13 Heparin - SQ Not Given TID KONG Ampicillin Sodium/Sulbactam 100 mls @ 200 mls/hr 12/20/18 15:00 Sodium 1.5 gm/ Sodium Chloride IVPB Q6H-IV KONG ASSESSMENT/PLAN: 23 year old female with history of Hypothyroidism (not on medication) and substance abuse (previously on Methadone), s/p Abdominoplasty, presented to ED with 4 days of pubic swelling/tenderness after shaving, spreading down L thigh, s/p trial of Bactrim and Ceftin, re-presented and underwent I and D in ED which was not completed due to pain. Abd US 12/16: Ultrasound soft tissue of the abdomen Grayscale and color Doppler images of the region of interest, pubic region were obtained and submitted for evaluation. There is diffuse soft tissue swelling with a small superficial complex density measuring 1.1 x 1.3 cm which is approximately 3 cm below a C- section scar suggestive of fluid collection. Rule out an abscess. Impression: Soft tissue swelling in the lower pelvis/pubic region with a small complex density measuring 1.3 x 1.1 cm that is seen approximately 3 cm below the C- section scar suggestive of a collection. Rule out an abscess. Correlate clinically. 1. Abscess Mons Pubis with surrounding Cellulitis. Failed therapy with oral Bactrim and Ceftin s/p partial I and D by ED IV Clindamycin initially changed to Zosyn/Vanco by ID, and now to Unasyn since Wound Cx returned positive for presumptive MSSA. Blood Cx neg Surgery and BELLHOP SERVICE CAPTAIN evaluated - Will defer further surgical intervention to discretion of Surgery. Afebrile, Hemodynamically Stable. 2. History of Substance Abuse Previously on Methadone Will discontinue Morphine. 3. Hypothyroidsim - not on medication DVT Px - Heparin SQ
[2018-12-20] MEDS: AMPICILLIN NA/SULBACTAM NA 1.5 GM in SODIUM CHLORIDE 100 ML IVPB SCH ×2 (16:53→20:37)
[2018-12-20] MEDS ORDERED: ACETAMINOPHEN 1000 MG/100 ML VIAL (NON FORMULARY) IVPB ONE (19:24)
[2018-12-20] MEDS: DOCUSATE SODIUM 100 MG CAPSULE (FP) PO SCH (19:44)
[2018-12-20] MEDS ORDERED: MORPHINE SULFATE 2 MG/ML VIAL IVPUSH ONE (20:00)
[2018-12-20] MEDS: POLYETHYLENE GLYCOL 3350 119 GM BTL PO SCH (23:13)
[2018-12-21] MEDS ORDERED: diphenhydrAMINE HCL 25 MG CAPSULE (FP) PO ONE (00:50)
[2018-12-21] MEDS: AMPICILLIN NA/SULBACTAM NA 1.5 GM in SODIUM CHLORIDE 100 ML IVPB SCH ×2 (03:02→09:34)
[2018-12-21] MEDS: HEPARIN NA (PORCINE) 5,000 UNITS/ML 1ML VIAL SQ SCH ×2 (06:25→15:33)
[2018-12-21 07:13] LABS: HEMATOCRIT 33.9 % (32.4-45.2); HEMOGLOBIN 11.5 GM/dL (10.7-15.3); MCH 27.4 pg (25.7-33.7); MEAN CELL VOLUME 80.8 fl (80-96); MEAN PLT VOLUME 7.2 fl (7.5-11.1); PLATELET COUNT 328 K/MM3 (134-434); RDW 16.5 % (11.6-15.6); WHITE BLOOD COUNT 4.4 K/mm3 (4.0-10.0)
[2018-12-21 07:33] LABS: ALBUMIN 3.2 g/dl (3.4-5.0); ALK PHOS 77 U/L (45-117); ANION GAP 6 MMOL/L (8-16); BILIRUBIN,TOTAL 0.3 mg/dL (0.2-1); BLOOD UREA NITROGEN 16 mg/dL (7-18); CALCIUM 8.9 mg/dL (8.5-10.1); CHLORIDE 107 mmol/L (98-107); CO2 27 mmol/L (21-32); CREATININE 0.5 mg/dL (0.55-1.3); GLUCOSE,RANDOM 82 mg/dL (74-106); POTASSIUM 3.7 mmol/L (3.5-5.1); SGOT/AST 9 U/L (15-37); SGPT/ALT 14 U/L (13-61); SODIUM 139 mmol/L (136-145); TOT PROT 6.8 g/dl (6.4-8.2)
[2018-12-21] MEDS: DOCUSATE SODIUM 100 MG CAPSULE (FP) PO SCH (09:35)
[2018-12-21] MEDS: POLYETHYLENE GLYCOL 3350 119 GM BTL PO SCH (09:41)
[2018-12-21] MEDS: CLOTRIMAZOLE/BETAMET DIPROP 15 GM TUBE TP SCH (09:41)
[2018-12-21] MEDS ORDERED: LACTOBACILLUS ACIDOPHILUS 1 TABLET PO SCH (11:45)
--- NOTE | 2018-12-21 13:01 | PN ---
Teaching Attending Note Name of Resident: Tereso Cowart ATTENDING PHYSICIAN STATEMENT I saw and evaluated the patient. I reviewed the resident's note and discussed the case with the resident. I agree with the resident's findings and plan as documented. SUBJECTIVE:area continues to drain more yellowish fluid at this time. very tender on palpation. denies CP, SOB, fever, chills, N/V/C/D OBJECTIVE: Last Vital Signs Temp Pulse Resp BP Pulse Ox 98.3 F 64 20 111/59 L 96 12/21/18 10:00 12/21/18 10:00 12/21/18 10:12/21/18 10:00 12/20/18 19:00 General NAD genital L side of mons pubis abscess with subcentimeter lesion firm with no active drainage noted. area is tender. no surrounding erythema ASSESSMENT AND PLAN: 23 year old female with history of Hypothyroidism (not on medication) and substance abuse (previously on Methadone), s/p Abdominoplasty, presented to ED with 4 days of pubic swelling/tenderness after shaving, spreading down L thigh, s/p trial of Bactrim and Ceftin, re-presented and underwent I and D in ED which was not completed due to pain. 1. Abscess Mons Pubis with surrounding Cellulitis- s/p I&D in the ER. failed outpatient therapy and started on unasyn here. WCx +MSSA and BCx negative. seen by FRONT OFFICE DIRECTOR and surgery. no further indication for further I&D as continues to drain. start warm compresses. possible switch to po abx today by ID. start bacid 2. History of Substance Abuse- previously on methadone. no longer taking. pain control with non-habit forming medications 3. Hypothyroidsim - not on medication. 4. DVT Px - Heparin SQ 5. Possible d/c home later today
[2018-12-21 15:01] VITALS: BP 112/67; PULSE 81; TEMP 97.8
--- NOTE | 2018-12-21 15:22 | DS ---
Physical Exam: SUBJECTIVE: Patient seen and examined at bedside this morning. She endorses pain at the site of mons pubis abscess. Denies drainage, or bleeding from abscess overnight. She denies subjective fevers, chills, shortness of breath, chest pain, palpitations, abdominal pain, nausea, vomiting. OBJECTIVE: Vital Signs Period Temp Pulse Resp BP Sys/Martinez Pulse Ox Last 24 Hr 97.7 F-98.5 F 61-81 20-20 91-112/59-67 96 PHYSICAL EXAM GENERAL: The patient is awake, alert, and fully oriented, in no acute distress. HEAD: Normocephalic, atraumatic. EYES: PERRL, extraocular movements intact, sclera anicteric, conjunctiva clear. ENT: Oropharynx clear, without erythema or exudates. Moist mucous membranes. NECK: Trachea midline, full range of motion. Supple without lymphadenopathy. LUNGS: Breath sounds equal, clear to auscultation bilaterally, no wheezes, no crackles. No accessory muscle use. HEART: Regular rate and rhythm, S1, S2 without murmur, rub or gallop. ABDOMEN: Soft, nondistended, nontender to light and deep palpation x4 quadrants , no rebound tenderness, no guarding. Normoactive bowel sounds x4 quadrants. no hepatosplenomegaly, no masses. EXTREMITIES: 2+ radial, dorsalis pedis pulses bilaterally. Warm, well-perfused. No lower extremity edema bilaterally. NEUROLOGICAL: Cranial nerves II through XII grossly intact. Normal speech. No gross focal deficits. PSYCH: Normal mood, normal affect upon my encounter. SKIN: Warm, dry. 4cm x 3cm indurated abscess noted overlying left mons pubis. No discharge, non draining. 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 LABS Laboratory Results - last 24 hr 12/21/18 12/21/18 06:00 06:00 WBC 4.4 RBC 4.20 Hgb 11.5 Hct 33.9 MCV 80.8 MCH 27.4 MCHC 34.0 RDW 16.5 H Plt Count 328 D MPV 7.2 L Sodium 139 Potassium 3.7 Chloride 107 Carbon Dioxide 27 Anion Gap 6 L BUN 16 Creatinine 0.5 L Creat Clearance w eGFR 151.58 Random Glucose 82 Calcium 8.9 Total Bilirubin 0.3 AST 9 L ALT 14 Alkaline Phosphatase 77 Total Protein 6.8 Albumin 3.2 L HOSPITAL COURSE: Date of Admission:12/18/18 Date of Discharge: 12/21/18 Patient is a 23 year old female with history of hypothyroidism, polysubstance abuse, presented with complaint of left groin pain and swelling. Abdominal US shows 1.3 x 1.1cm density upon admission. Patient had I&D performed in ED. General surgery consult discussed no surgical intervention and recommended [employer] evaluation. [employer] consult recommended no acute intervention, and Clotrimazole cream. Patient was evaluated by infectious disease physician. Wound cultures grew Staph aureus. Patient was treated with IV augmentin, and transitioned to oral Augmentin. Patient was discharged with 7 additional days of Augmentin, and Clotrimazole cream. She was discharged home, to follow up with primary care physician, and OBGYN. Minutes to complete discharge: 35 Discharge Summary Reason For Visit: CELLULITIS Current Active Problems Abscess (Acute) Abscess of female genitalia (Acute) Condition: Improved - Instructions Diet, Activity, Other Instructions: Hospital course: You were admitted to hospital for skin infection (abscess). You were evaluated by general surgeon, landscape maintenance internship, and infectious disease physician. You had procedure to remove fluid building up within the infection ( incision and drainage), and were treated with antibiotics. You are being discharged home. Medication changes: You will take antibiotic Augmentin 875mg every 12 hours for the next 7 days In addition, you will apply Lotrisone cream twice a day over the affected area In addition, place warm compress over the area daily. We are adding a probiotic (Bacid) for you to take daily while on the antibiotic. You can also continue taking Miralax to help you pass stool Follow-up recommendations: Follow up with your primary care physician within two- three days after discharge. A referral to [facility] has been provided. Follow up with your landscape maintenance internship within one week of discharge. A referral for Dr. Scott has been provided. Return to the nearest Emergency Department if you experience worsening symptoms , fevers, chills, shortness of breath, chest pain, palpitations, abdominal pain , nausea, vomiting, bleeding or drainage from the wound. Referrals: [facility] [place] [Provider Group] - 1 Week (Call to make an appointment with Dr Cowart on Thursday mornings between 9-11.30am or with Dr Spaulding on between 1-3.30pm) Marcio Scott MD [Staff Physician] - 1 Week (Follow up following Abscess over L mons pubis) Disposition: HOME - Home Medications Comprehensive Discharge Medication List: Ambulatory Orders Amox-Tr/K Cl [Augmentin 875-125mg Tablet -] 1 tab PO BID@0800,1730 7 Days #14 tablet 12/21/18 Clotrimazole/Betamet Diprop [Lotrisone -] 1 applic TP BID #1 tube 12/21/18 Lactobacillus Acidophilus [Bacid -] 1 tab PO DAILY 14 Days #14 tab 12/21/18 This patient is new to me today: No Emergency Visit: Yes ED Registration Date: 12/18/18 Care time: The patient presented to the Emergency Department on the above date and was hospitalized for further evaluation of their emergent condition. Critical Care patient: No - Discharge Referral Referred to [facility] No
[2018-12-21] MEDS ORDERED: AMOX TR/POT CLAV 875MG/125MG TABLETS (FP) PO SCH (17:30)
[2018-12-21] MEDS ORDERED: POLYETHYLENE GLYCOL 3350 119 GM BTL PO SCH (22:00)
== END 2018-12-21 16:16 | disposition home or self-care (01) ==
LOC: JER 16:31 → UNDOADMOB 18:40 → INTOOBSV 18:40 → JERBED 18:40 → J5S 23:28
PROVIDERS: ADMIT Internal Medicine; ATTEND Internal Medicine
PROC: 0H9AXZZ Drainage of Inguinal Skin, External Approach (ICD-10-PCS; principal; 2018-12-18)
PROC: BW4GZZZ Ultrasonography of Pelvic Region (ICD-10-PCS; 2018-12-18)
PROC: 3E03329 Introduction of Other Anti-infective into Peripheral Vein, Percutaneous Approach (ICD-10-PCS; 2018-12-18)
PROC: 3E033NZ Introduction of Analgesics, Hypnotics, Sedatives into Peripheral Vein, Percutaneous Approach (ICD-10-PCS; 2018-12-18)
PROC: 3E033GC Introduction of Other Therapeutic Substance into Peripheral Vein, Percutaneous Approach (ICD-10-PCS; 2018-12-18)
DX: L02.215 Cutaneous abscess of perineum (principal); L02.214 Cutaneous abscess of groin; L03.314 Cellulitis of groin; L03.116 Cellulitis of left lower limb; E03.9 Hypothyroidism, unspecified; F11.23 Opioid dependence with withdrawal; F41.0 Panic disorder [episodic paroxysmal anxiety]; F19.280 Other psychoactive substance dependence with psychoactive substance-induced anxiety disorder; F19.282 Other psychoactive substance dependence with psychoactive substance-induced sleep disorder; Z98.84 Bariatric surgery status
CPT/HCPCS: 10060; 36415; 80053; 83735; 84100; 84703; 85025; 85027; 85610; 85730; 87040; 87070; 87186; 87205; 93005; 93010; 96365; 96375; 96376; 99285-25; G0378; J0131

== ENCOUNTER 2019-10-04 21:19 | Inpatient (IN) | payer OTHER ==
[2019-10-04 22:00] VITALS: BMI 30.9
--- NOTE | 2019-10-04 23:09 | HP ---
CIWA Score Nausea/Vomitin (x 2) Muscle Tremors: 3 Anxiety: 3 Agitation: 3 Paroxysmal Sweats: 2 Orientation: 2-Disoriented Date<2 days Tacttile Disturbances: 0-None Auditory Disturbances: 0-None Visual Disturbances: 0-None Headache: 4-Moderately Severe CIWA-Ar Total Score: 20 - Admission Criteria OASAS Guidelines: Admission for Medically Managed Detox: Requires at least one of the followin. CIWA greater than 12 2. Seizures within the past 24 hours 3. Delirium tremens within the past 24 hours 4. Hallucinations within the past 24 hours 5. Acute intervention needed for co occurring medical disorder 6. Acute intervention needed for co occurring psychiatric disorder 7. Severe withdrawal that cannot be handled at a lower level of care (continued vomiting, continued diarrhea, abnormal vital signs) requiring intravenous medication and/or fluids 8. Admitting History and Physical - Past Medical History ...LMP: 12/07/18 Psych: Yes: Addictions Musculoskeletal: Yes: Other (Abscess L groin) - Smoking History Smoking history: Unknown if ever smoked Have you smoked in the past 12 months: No Aproximately how many cigarettes per day: 1 - Alcohol/Substance Use Hx Alcohol Use: No Admission ROS [facility] Chief Complaint: Benzo. withdrawal symptoms Allergies/Adverse Reactions: Allergies Allergy/AdvReac Type Severity Reaction Status Date / Time NSAIDS (Non-Steroidal Allergy Verified 12/18/18 16:45 Anti-Inflamma History of Present Illness: 24 years old female with 3 years of benzo. dependence is seeking admission to detox. Patient has had multiple admissions and emergency room visits. She has medical history of hypothyroidism and psych. history of anxiety, insomnia and depression. She reports suicide attempt in 2019 and denies suicidal ideation at this time. Data Detail Level: [employer] Confidential Drug Utilization Report Search Terms: misael rand, 1995 Search Date: 10/04/2019 11:05:23 PM The Drug Utilization Report below displays all of the controlled substance prescriptions, if any, that your patient has filled in the last twelve months. The information displayed on this report is compiled from pharmacy submissions to the Department, and accurately reflects the information as submitted by the pharmacies. You have not added a FABIAN number. Keeping your FABIAN number(s) up to date on the My FABIAN Numbers page will enable the separation of your prescriptions from others ' in the search results. Others' Prescriptions Patient Name: Misael Rand Date: 1995 Address: [address] [place] [address] Sex: Female Rx Written Rx Dispensed Drug Quantity Days Supply Prescriber Name 08/26/2019 08/26/2019 oxycodone-acetaminophen 5-325 mg tab 8 2 Richard Valadez Julian 06/24/2019 06/24/2019 oxycodone-acetaminophen 5-325 mg tab 8 2 Orlando Grigsby MD 05/25/2019 05/26/2019 oxycodone-acetaminophen 5-325 mg tab 20 3 FangStephaniekimberly Vanegas RPA-C 05/06/2019 05/06/2019 oxycodone-acetaminophen 5-325 mg tab 20 5 Penelope Matthews M 04/05/2019 04/06/2019 oxycodone-acetaminophen 5-325 mg tab 20 5 FangJon perry Romina RPA-C 12/16/2018 12/16/2018 oxycodone-acetaminophen 5-325 mg tab 10 2 Mei Munoz (RPA-C) Patient Name: Misael Rand Date: 1995 Address: [address] [place] [address] Sex: Female Rx Written Rx Dispensed Drug Quantity Days Supply Prescriber Name 05/06/2019 05/10/2019 oxycodone-acetaminophen 5-325 mg tab 30 5 FangJon perry Romina RPA-C * - Drugs marked with an asterisk are compound drugs. If the compound drug is made up of more than one controlled substance, then each controlled substance will be a separate row in the table. Exam Limitations: No Limitations - Ebola screening Have you traveled outside of the country in the last 21 days: No Have you been sick,other than usual withdrawal symptoms: No Do you have a fever: No - Review of Systems Constitutional: Chills, Malaise, Night Sweats, Changes in sleep EENT: reports: No Symptoms Reported Respiratory: reports: No Symptoms reported Cardiac: reports: No Symptoms Reported GI: reports: Diarrhea (x 2), Nausea, Poor Appetite, Poor Fluid Intake, Vomiting , Abdominal cramping : reports: No Symptoms Reported Musculoskeletal: reports: Joint Pain Integumentary: reports: Dryness, Flushing Neuro: reports: Tremors Endocrine: reports: No Symptoms Reported Hematology: reports: No Symptoms Reported Psychiatric: reports: No Sypmtoms Reported, Mood/Affect Appropiate, Orientated x3 Other Systems: Reviewed and Negative Patient History - Patient Medical History Hx Anemia: No Hx Asthma: No Hx Chronic Obstructive Pulmonary Disease (COPD): No Hx Cancer: No Hx Cardiac Disorders: No Hx Congestive Heart Failure: No Hx Hypertension: No Hx Hypercholesterolemia: No Hx Pacemaker: No HX Cerebrovascular Accident: No Hx Seizures: No Hx Dementia: No Hx Diabetes: No Hx Gastrointestinal Disorders: No Hx Liver Disease: No Hx Genitourinary Disorders: No Hx Sexually Transmitted Disorders: No Hx Renal Disease (ESRD): No Hx Thyroid Disease: Yes (HYPOTHYROID -) Hx Human Immunodeficiency Virus (HIV): No Hx Hepatitis C: No Hx Depression: No Hx Suicide Attempt: No Hx Bipolar Disorder: No Hx Schizophrenia: No - Patient Surgical History Past Surgical History: Yes Hx Neurologic Surgery: No Hx Cataract Extraction: No Hx Cardiac Surgery: No Hx Lung Surgery: No Hx Breast Surgery: No Hx Breast Biopsy: No Hx Abdominal Surgery: Yes (Gastric bypass in 2010) Hx Appendectomy: No Hx Cholecystectomy: No Hx Genitourinary Surgery: No Hx Section: No Hx Orthopedic Surgery: No Other Surgical History: Pt had excess skin removed from arms abd and breast., tonsylectomy Anesthesia Reaction: No - PPD History Previous Implant?: Yes Documented Results: Negative w/proof Implanted On Prior [facility] Admission?: Yes Date: 01/30/17 Results: 0 mm PPD to be Administered?: Yes - Reproductive History Patient is a Female of Child Bearing Age (11 -55 yrs old): Yes Last Menstrual Period: 10/03/19 - Smoking Cessation Smoking history: Unknown if ever smoked Have you smoked in the past 12 months: No Aproximately how many cigarettes per day: 1 Cigars Per Day: 0 Hx Chewing Tobacco Use: No Initiated information on smoking cessation: Yes 'Breaking Loose' booklet given: 10/04/19 - Substance & Tx. History Hx Alcohol Use: No Substance Use Type: Cocaine, Marijuana, Opiates, Tranquilizers Hx Substance Use Treatment: Yes ([facility]) - Substances abused Alprazolam (Xanax) Substance route: Oral Frequency: Daily Amount used: up to 20 2 mg sticks Age of first use: 22 Date of last use: 10/04/19 Admission Physical Exam [facility] - Vital Signs Vital Signs: Vital Signs - 24 hr 10/04/19 10/04/19 21:52 22:47 Temperature 97.9 F 97.9 F Pulse Rate 75 75 Respiratory 16 16 Rate Blood Pressure 103/56 L 103/56 L - Physical General Appearance: Yes: Moderate Distress, Tremorous, Sweating, Anxious HEENTM: Yes: Within Normal Limits, EOMI, Normal Voice, YULISA Respiratory: Yes: Lungs Clear, Normal Breath Sounds, No Respiratory Distress Neck: Yes: Within Normal Limits Breast: Yes: Breast Exam Deferred Cardiology: Yes: Regular Rhythm, Regular Rate Abdominal: Yes: Normal Bowel Sounds, Soft Genitourinary: Yes: Within Normal Limits Back: Yes: Normal Inspection Musculoskeletal: Yes: Back pain, Muscle Pain Extremities: Yes: Tremors Neurological: Yes: Within Normal Limits, Alert, Normal Mood/Affect Integumentary: Yes: Warm Lymphatic: Yes: Within Normal Limits - Diagnostic (1) Hypothyroidism Current Visit: Yes Status: Chronic Qualifiers: Hypothyroidism type: unspecified Qualified Code(s): E03.9 - Hypothyroidism , unspecified (2) Abscess of female genitalia Current Visit: No Status: Acute (3) Cellulitis Current Visit: No Status: Acute Qualifiers: Site of cellulitis: trunk Site of cellulitis of trunk: groin Qualified Code(s): L03.314 - Cellulitis of groin (4) Alcohol dependence with uncomplicated withdrawal Current Visit: No Status: Chronic (5) Anxiety and depression Current Visit: No Status: Chronic (6) Gastritis Current Visit: No Status: Chronic (7) H/O gastric bypass Current Visit: No Status: Chronic (8) Insomnia Current Visit: No Status: Chronic Qualifiers: Insomnia type: unspecified Qualified Code(s): G47.00 - Insomnia, unspecified (9) Nicotine dependence Current Visit: No Status: Chronic Qualifiers: Nicotine product type: cigarettes Substance use status: uncomplicated Qualified Code(s): F17.210 - Nicotine dependence, cigarettes, uncomplicated (10) Sedative, hypnotic, or anxiolytic withdrawal Current Visit: Yes Status: Acute (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 Current Visit: No Status: Chronic (12) Drug-induced mood disorder Current Visit: No Status: Suspected (13) Personality disorder Current Visit: No Status: Suspected Cleared for Admission [facility] - Detox or Rehab [facility] Level of Care: Medically Managed Detox Regimen/Protocol: Valium Claeared for Rehab Admission: No Breathalyzer - Breathalyzer Breathalyzer: 0 Urine Drug Screen - Test Device Lot number: [id number] Expiration date: 04/06/21 - Control Is test valid?: Yes - Results Drug screen NEGATIVE: No Urine drug screen results: THC-Marijuana, REMINGTON-Cocaine, BZO-Benzodiazepines, BUP- Suboxone Inpatient Rehab Admission - Rehab Decision to Admit Inpatient rehab admission?: No
[2019-10-04] MEDS ORDERED: MELATONIN 5 MG TABLETS PO PRN (23:27)
[2019-10-04] MEDS ORDERED: hydrOXYzine PAMOATE 25 MG CAPSULE (FP) PO PRN (23:27)
[2019-10-04] MEDS ORDERED: NICOTINE POLACRILEX 2 MG GUM BUC PRN (23:27)
[2019-10-04] MEDS ORDERED: MAG HYDROX/AL HYDROX/SIMETH 30 ML UNIT-DOSE CUP PO PRN (23:27)
[2019-10-04] MEDS ORDERED: ACETAMINOPHEN 325 MG TABLET (FP) PO PRN ×2 (23:27)
[2019-10-04] MEDS ORDERED: BISMUTH SUBSALICYLATE 524 MG/30 ML UD PO PRN (23:27)
[2019-10-04] MEDS ORDERED: MENTHOL/PHENOL 1 EACH UD MM PRN (23:27)
[2019-10-04] MEDS ORDERED: MAGNESIUM HYDROX 2400MG/30ML ORAL SUSPENSION 30 ML CUP PO PRN (23:27)
[2019-10-04] MEDS ORDERED: MAGNESIUM CITRATE 300 ML BOTTLE PO PRN (23:27)
[2019-10-04] MEDS ORDERED: IBUPROFEN 400 MG TABLET (FP) PO PRN (23:27)
[2019-10-05] MEDS: diazePAM 5 MG TABLET PO SCH ×3 (01:26→14:08)
[2019-10-05] MEDS ORDERED: PRENATAL VITAMINS W/ FOLIC ACID TABLET (FP) PO SCH (10:00)
[2019-10-05] MEDS ORDERED: NICOTINE 14 MG/24 HOURS TOPICAL PATCH TD SCH (10:00)
[2019-10-05 10:24] LABS: HEMATOCRIT 33.8 % (32.4-45.2); HEMOGLOBIN 11.1 GM/dL (10.7-15.3); MCH 27.4 pg (25.7-33.7); MCHC 32.8 g/dl (32.0-36.0); MEAN CELL VOLUME 83.7 fl (80-96); MEAN PLT VOLUME 8.1 fl (7.5-11.1); PLATELET COUNT 277 K/MM3 (134-434); RBC 4.04 M/mm3 (3.60-5.2); RDW 17.5 % (11.6-15.6)
[2019-10-05] MEDS: diazePAM 5 MG TABLET PO PRN ×2 (10:26→17:49)
[2019-10-05] MEDS: METHOCARBAMOL 500 MG TABLET PO PRN ×2 (10:28→17:48)
[2019-10-05 10:51] LABS: ALBUMIN 3.3 g/dl (3.4-5.0); BILIRUBIN,TOTAL 0.3 mg/dL (0.2-1); BLOOD UREA NITROGEN 11.7 mg/dL (7-18); CALCIUM 8.7 mg/dL (8.5-10.1); CREATININE 0.7 mg/dL (0.55-1.3); POTASSIUM 3.4 mmol/L (3.5-5.1); TOT PROT 6.1 g/dl (6.4-8.2)
--- NOTE | 2019-10-05 11:23 | EKG ---
Test Reason : Blood Pressure : / mmHG Vent. Rate : 050 BPM Atrial Rate : 050 BPM P-R Int : 138 ms QRS Dur : 084 ms QT Int : 464 ms P-R-T Axes : -15 067 056 degrees QTc Int : 423 ms SINUS BRADYCARDIA OTHERWISE NORMAL ECG WHEN COMPARED WITH ECG OF 18-DEC-2018 18:37, VENT. RATE HAS DECREASED BY 32 BPM Confirmed by Rashard Vo MD ([id number]) on 10/05/2019 11:23:14 AM Referred By: Abhishek Scott Confirmed By:Rashard Vo MD
--- NOTE | 2019-10-05 11:54 | CONSULT ---
[facility] Psychiatric Consult - Data Date of interview: 10/05/19 Admission source: [facility] Identifying data: Revisit to [facility] and admission to [address] [place] [address] for this 24 y/o [place] Citizen female self-referred for detoxification treatment. JALEEL issues : opiate, benzodiazepine (xanax), cannabis, nicotine, cocaine. Patient is single, no dependents, domiciled (lives with parents), currently unemployed and supported by relatives. Substance Abuse History: Discussed with patient. details in current [facility] report as follows : Smoking history: Unknown if ever smoked. Have you smoked in the past 12 months: No. Aproximately how many cigarettes per day: 1. Cigars Per Day: 0. Hx Chewing Tobacco Use: No. Initiated information on smoking cessation : Yes. 'Breaking Loose' booklet given: 10/04/19. - Substance & Tx. History. Hx Alcohol Use: No. Substance Use Type: Cocaine, Marijuana, Opiates, Tranquilizers. Hx Substance Use Treatment: Yes ([facility]). - Substances abused. * * Alprazolam (Xanax). Substance route: Oral. Frequency: Daily. Amount used: up to 20 2 mg sticks. Age of first use: 22. Date of last use: 10/04/19 Medical History: Medical profile is remarkable for hypothyroidism and history of gastric bypass in 2010. Psychiatric History: Patient admits to a history of one psychiatric hospitalization ([facility]) in 2017. Circumstances of admission : acting out behavior, mood dysregulation and threat of suicide. Reportedly diagnosed with Anxiety Disorder and prescribed, in the past, various psychotropic medications which included xanax, trazodone, seroquel, mirtazapine and other unnamed formulations. Records ([facility]) indicate that this patient has been on methadone maintenance (up to 80 mg/day) around 2016. Ms Rand reports no recent contact with psychiatric [employer] care providers. Has been totally lost to follow-up for several months. She states that she has continued to buy xanax from street dealers. Patient admits to a history of two suicide attempts (first attempt occurred at age 21 + second took place in 2019). Both were consistent with overdose with pills. Patient reports that she spent a year in [place] (2014 ) during which time she received OPD psychiatric care (treated with benzodiazepines by Jamaican doctors). Physical/Sexual Abuse/Trauma History: Patient denies history of sexual abuse. Ms Rand reports that she is under " a lot of stress " from her parents whom she describes as judgmental, coercive, controlling and verbally abusive. Additional Comment: Urine drug screen results: THC-Marijuana, REMINGTON-Cocaine, BZO- Benzodiazepines, BUP-Suboxone. Noted. Mental Status Exam - Mental Status Exam Alert and Oriented to: Time, Place, Person Cognitive Function: Good Patient Appearance: Well Groomed Mood: Withdrawn, Anxious Affect: Appropriate, Normal Range Patient Behavior: Fatigued, Appropriate, Cooperative Speech Pattern: Clear, Appropriate Voice Loudness: Normal Thought Process: Intact, Goal Oriented Thought Disorder: Not Present Hallucinations: Denies Suicidal Ideation: Denies Homicidal Ideation: Denies Insight/Judgement: Poor Sleep: Poorly, Difficulty falling asleep Appetite: Good Gait/Station: Normal (not observed ; patient remains in bed during interview at bedside) Psychiatric Findings - Problem List ([place] 1, 2,3) (1) Opioid use disorder Current Visit: Yes Status: Chronic (2) Sedative, hypnotic or anxiolytic dependence with withdrawal, uncomplicated Current Visit: Yes Status: Acute (3) Cannabis abuse Current Visit: Yes Status: Chronic (4) Cocaine abuse Current Visit: Yes Status: Acute (5) Nicotine dependence Current Visit: Yes Status: Chronic Qualifiers: Nicotine product type: cigarettes Substance use status: uncomplicated Qualified Code(s): F17.210 - Nicotine dependence, cigarettes, uncomplicated (6) Drug-induced mood disorder Current Visit: Yes Status: Suspected (7) Anxiety disorder Current Visit: Yes Status: Chronic Comment: As per self-report. (8) Insomnia Current Visit: Yes Status: Chronic Qualifiers: Insomnia type: unspecified Qualified Code(s): G47.00 - Insomnia, unspecified - Initial Treatment Plan Initial Treatment Plan: Psychiatric interview is conducted at bedside with medical student in attendance (patient gave verbal consent). Records ([facility]) revisited. Psychoeducation. Sleep hygiene. Detoxification. MAT services revisited with the patient. Support provided. Attendance to groups : strongly recommended to patient. AA/NA meetings. Insomnia is addressed with suvorexant 10 mg po hs prn (patient has declined trazodone, quetiapine, mirtazapine). Side effects/benefits discussed with patient. Ms Rand is in agreement with this plan of care. Consent (verbal) granted to MD. Ramos.
[2019-10-05] MEDS ORDERED: LOPERAMIDE HCL 2 MG CAPSULE PO ONE (12:05)
[2019-10-05] MEDS ORDERED: ONDANSETRON *ODT* 4 MG TABLET SL ONE (12:06)
--- NOTE | 2019-10-05 12:09 | PN ---
[facility] CIWA - CIWA Score Nausea/Vomitin-Mild Nausea/No Vomiting Muscle Tremors: 2 Anxiety: 3 Agitation: 2 Paroxysmal Sweats: 2 Orientation: 0-Oriented Tacttile Disturbances: 1-Very Mild Itch/Numbness Auditory Disturbances: 1-Very Mild Visual Disturbances: 1-Very Mild Sensitivity Headache: 2-Mild CIWA-Ar Total Score: 15 S Progress Note (SOAP) Subjective: 24 years old female admitted on 10/04/19 for benzo withdrawal sx management treating with valium detox regimen diarrhea after breakfast imodium 4 mg po x 1 report vomited x 1 after breakfast zofran 8 sl mg x 1 trouble sleep at night belsomra 5 mg po hs x 1 tonight Objective: 10/05/19 12:08 Vital Signs Temperature 97.6 F 10/05/19 08:41 Pulse Rate 58 L 10/05/19 08:41 Respiratory Rate 16 10/05/19 08:41 Blood Pressure 93/68 10/05/19 08:41 O2 Sat by Pulse Oximetry (%) Laboratory Last Values WBC 6.0 K/mm3 (4.0-10.0) 10/05/19 07:30 RBC 4.04 M/mm3 (3.60-5.2) 10/05/19 07:30 Hgb 11.1 GM/dL (10.7-15.3) 10/05/19 07:30 Hct 33.8 % (32.4-45.2) 10/05/19 07:30 MCV 83.7 fl (80-96) 10/05/19 07:30 MCH 27.4 pg (25.7-33.7) 10/05/19 07:30 MCHC 32.8 g/dl (32.0-36.0) 10/05/19 07:30 RDW 17.5 % (11.6-15.6) H 10/05/19 07:30 Plt Count 277 K/MM3 (134-434) 10/05/19 07:30 MPV 8.1 fl (7.5-11.1) D 10/05/19 07:30 Sodium 141 mmol/L (136-145) 10/05/19 07:30 Potassium 3.4 mmol/L (3.5-5.1) L 10/05/19 07:30 Chloride 108 mmol/L (98-107) H 10/05/19 07:30 Carbon Dioxide 26 mmol/L (21-32) 10/05/19 07:30 Anion Gap 7 MMOL/L (8-16) L 10/05/19 07:30 BUN 11.7 mg/dL (7-18) 10/05/19 07:30 Creatinine 0.7 mg/dL (0.55-1.3) 10/05/19 07:30 Est GFR (CKD-EPI)AfAm 139.57 10/05/19 07:30 Est GFR (CKD-EPI)NonAf 120.42 10/05/19 07:30 Random Glucose 109 mg/dL (74-106) H 10/05/19 07:30 Calcium 8.7 mg/dL (8.5-10.1) 10/05/19 07:30 Total Bilirubin 0.3 mg/dL (0.2-1) 10/05/19 07:30 AST 10 U/L (15-37) L 10/05/19 07:30 ALT 17 U/L (13-61) 10/05/19 07:30 Alkaline Phosphatase 63 U/L (45-117) 10/05/19 07:30 Total Protein 6.1 g/dl (6.4-8.2) L 10/05/19 07:30 Albumin 3.3 g/dl (3.4-5.0) L 10/05/19 07:30 RPR Titer Nonreactive (NONREACTIVE) 10/05/19 07:30 lab noted saul had suboxone positive utox upon admission "my friend gave one to me" report benzo is the main substance in her addiction 10/05/19 12:08 Assessment: 10/05/19 12:08 benzo withdrawal Plan: valium regiment
[2019-10-05 17:39] VITALS: BP 113/75; PULSE 68; TEMP 98.3
--- NOTE | 2019-10-05 18:43 | DS ---
[facility] Detox Discharge Summary Admission Date: 10/04/19 Discharge Date: 10/05/19 - History Additional Comments: Patient is leaving against medical advice and she has left multiple times against medical advice. When patient was asked why she is not completing her detox, she became verbally loud, disrespectful and verbally abusive. Risks and consequences of not completing detox reinforced. Her last vitals are within norm. She is medically stable at this time. Pertinent Past History: Benzo. dependence, hypothyroidism, cannabis dependence, nicotine dependence, cocaine dependence, personality disorder - Physical Exam Results Vital Signs: Vital Signs Temperature 98.3 F 10/05/19 17:39 Pulse Rate 68 10/05/19 17:39 Respiratory Rate 18 10/05/19 17:39 Blood Pressure 113/75 10/05/19 17:39 O2 Sat by Pulse Oximetry (%) Laboratory Last Values WBC 6.0 K/mm3 (4.0-10.0) 10/05/19 07:30 RBC 4.04 M/mm3 (3.60-5.2) 10/05/19 07:30 Hgb 11.1 GM/dL (10.7-15.3) 10/05/19 07:30 Hct 33.8 % (32.4-45.2) 10/05/19 07:30 MCV 83.7 fl (80-96) 10/05/19 07:30 MCH 27.4 pg (25.7-33.7) 10/05/19 07:30 MCHC 32.8 g/dl (32.0-36.0) 10/05/19 07:30 RDW 17.5 % (11.6-15.6) H 10/05/19 07:30 Plt Count 277 K/MM3 (134-434) 10/05/19 07:30 MPV 8.1 fl (7.5-11.1) D 10/05/19 07:30 Sodium 141 mmol/L (136-145) 10/05/19 07:30 Potassium 3.4 mmol/L (3.5-5.1) L 10/05/19 07:30 Chloride 108 mmol/L (98-107) H 10/05/19 07:30 Carbon Dioxide 26 mmol/L (21-32) 10/05/19 07:30 Anion Gap 7 MMOL/L (8-16) L 10/05/19 07:30 BUN 11.7 mg/dL (7-18) 10/05/19 07:30 Creatinine 0.7 mg/dL (0.55-1.3) 10/05/19 07:30 Est GFR (CKD-EPI)AfAm 139.57 10/05/19 07:30 Est GFR (CKD-EPI)NonAf 120.42 10/05/19 07:30 Random Glucose 109 mg/dL (74-106) H 10/05/19 07:30 Calcium 8.7 mg/dL (8.5-10.1) 10/05/19 07:30 Total Bilirubin 0.3 mg/dL (0.2-1) 10/05/19 07:30 AST 10 U/L (15-37) L 10/05/19 07:30 ALT 17 U/L (13-61) 10/05/19 07:30 Alkaline Phosphatase 63 U/L (45-117) 10/05/19 07:30 Total Protein 6.1 g/dl (6.4-8.2) L 10/05/19 07:30 Albumin 3.3 g/dl (3.4-5.0) L 10/05/19 07:30 RPR Titer Nonreactive (NONREACTIVE) 10/05/19 07:30 Pertinent Admission Physical Exam Findings: Benzo. withdrawal symptoms - Medication Discharge Medications: Ambulatory Orders NK [No Known Home Medication] 10/04/19 - Diagnosis (1) Hypothyroidism Status: Chronic Qualifiers: Hypothyroidism type: unspecified Qualified Code(s): E03.9 - Hypothyroidism , unspecified (2) Abscess of female genitalia Status: Acute (3) Cellulitis Status: Acute Qualifiers: Site of cellulitis: trunk Site of cellulitis of trunk: groin Qualified Code(s): L03.314 - Cellulitis of groin (4) Alcohol dependence with uncomplicated withdrawal Status: Chronic (5) Anxiety and depression Status: Chronic (6) Gastritis Status: Chronic (7) H/O gastric bypass Status: Chronic (8) Insomnia Status: Chronic Qualifiers: Insomnia type: unspecified Qualified Code(s): G47.00 - Insomnia, unspecified (9) Nicotine dependence Status: Chronic Qualifiers: Nicotine product type: cigarettes Substance use status: uncomplicated Qualified Code(s): F17.210 - Nicotine dependence, cigarettes, uncomplicated (10) Sedative, hypnotic, or anxiolytic withdrawal Status: Acute (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 Status: Chronic (12) Drug-induced mood disorder Status: Suspected (13) Personality disorder Status: Suspected - AMA Did Patient Leave Against Medical Advice: Yes
[2019-10-05] MEDS ORDERED: SUVOREXANT 10 MG TABLET PO PRN (22:00)
[2019-10-05] MEDS ORDERED: THIAMINE HCL 100 MG TABLET (FP) PO SCH (22:00)
[2019-10-05] MEDS ORDERED: SUVOREXANT 5 MG TABLET PO ONE (22:00)
[2019-10-06] MEDS ORDERED: diazePAM 5 MG TABLET PO SCH (06:00)
[2019-10-07] MEDS ORDERED: diazePAM 5 MG TABLET PO ONE (06:00)
== END 2019-10-05 18:50 | disposition left against medical advice (07) | DRG 770 ==
LOC: YASAS 21:19 → Y3N 23:52
PROVIDERS: ADMIT Allergy & Immunology; ATTEND Allergy & Immunology
PROC: HZ2ZZZZ Detoxification Services for Substance Abuse Treatment (ICD-10-PCS; principal; 2019-10-04)
DX: F10.230 Alcohol dependence with withdrawal, uncomplicated (principal); F13.230 Sedative, hypnotic or anxiolytic dependence with withdrawal, uncomplicated; F14.10 Cocaine abuse, uncomplicated; F12.10 Cannabis abuse, uncomplicated; F17.210 Nicotine dependence, cigarettes, uncomplicated; F19.24 Other psychoactive substance dependence with psychoactive substance-induced mood disorder; F19.282 Other psychoactive substance dependence with psychoactive substance-induced sleep disorder; F19.280 Other psychoactive substance dependence with psychoactive substance-induced anxiety disorder; F32.9 Major depressive disorder, single episode, unspecified; F41.9 Anxiety disorder, unspecified; F60.9 Personality disorder, unspecified; E03.9 Hypothyroidism, unspecified; L03.314 Cellulitis of groin; N76.4 Abscess of vulva; K29.70 Gastritis, unspecified, without bleeding; G47.00 Insomnia, unspecified; Z98.84 Bariatric surgery status; Z88.8 Allergy status to other drugs, medicaments and biological substances
CPT/HCPCS: 36415; 80053; 85027; 86593; 93005; 93010

== ENCOUNTER 2021-08-16 21:09 | Inpatient (IN) | payer OTHER ==
[2021-08-16 23:19] VITALS: BP 98/58; PULSE 79; TEMP 97.7; BMI 22.6
== END 2021-08-16 23:59 | disposition left against medical advice (07) | DRG 770 ==
LOC: YASAS 21:09 → Y6N 23:49
PROVIDERS: ADMIT Allergy & Immunology; ATTEND Allergy & Immunology
PROC: HZ2ZZZZ Detoxification Services for Substance Abuse Treatment (ICD-10-PCS; principal; 2021-08-16)
DX: F11.23 Opioid dependence with withdrawal (principal); F13.230 Sedative, hypnotic or anxiolytic dependence with withdrawal, uncomplicated; F17.210 Nicotine dependence, cigarettes, uncomplicated; F41.9 Anxiety disorder, unspecified; E03.9 Hypothyroidism, unspecified; G47.00 Insomnia, unspecified; Z88.8 Allergy status to other drugs, medicaments and biological substances
CPT/HCPCS: 81025

== ENCOUNTER 2022-01-24 18:50 | Inpatient (IN) | payer OTHER ==
[2022-01-24 23:02] VITALS: BMI 23.1
[2022-01-24] MEDS ORDERED: methaDONE HCL 10 MG TABLET (FOR DETOX USE ONLY) PO ONE (23:32)
[2022-01-24] MEDS ORDERED: methaDONE HCL 10 MG TABLET (FOR DETOX USE ONLY) ONE (23:51)
[2022-01-25] MEDS ORDERED: NICOTINE POLACRILEX 2 MG GUM BUC PRN (00:03)
[2022-01-25] MEDS ORDERED: ONDANSETRON *ODT* 4 MG TABLET SL PRN (00:03)
[2022-01-25] MEDS ORDERED: BISMUTH SUBSALICYLATE 524 MG/30 ML PO PRN (00:03)
[2022-01-25] MEDS ORDERED: BENZOCAINE/MENTHOL (CHLORASEPTIC ) LOZENGE MM PRN (00:03)
[2022-01-25] MEDS ORDERED: MELATONIN 5 MG TABLETS PO PRN (00:03)
[2022-01-25] MEDS ORDERED: MAGNESIUM HYDROX 2400MG/30ML ORAL SUSPENSION 30 ML CUP PO PRN (00:03)
[2022-01-25] MEDS ORDERED: LOPERAMIDE HCL 2 MG CAPSULE PO PRN (00:03)
[2022-01-25] MEDS ORDERED: ACETAMINOPHEN 325 MG TABLET (FP) PO PRN ×2 (00:03)
[2022-01-25] MEDS ORDERED: MAG HYDROX/AL HYDROX/SIMETH 30 ML UNIT-DOSE CUP PO PRN (00:03)
[2022-01-25] MEDS ORDERED: MAGNESIUM CITRATE 300 ML BOTTLE PO PRN (00:03)
[2022-01-25] MEDS: hydrOXYzine PAMOATE 25 MG CAPSULE (FP) PO PRN ×3 (02:12→18:22)
[2022-01-25] MEDS: METHOCARBAMOL 500 MG TABLET PO PRN ×2 (02:12→18:23)
[2022-01-25] MEDS ORDERED: methaDONE HCL 10 MG TABLET (FOR DETOX USE ONLY) ONE (09:40)
[2022-01-25] MEDS: PRENATAL VITAMINS W/ FOLIC ACID TABLET (FP) PO SCH (11:15)
[2022-01-25 13:48] LABS: HEMATOCRIT 30.5 % (32.4-45.2); HEMOGLOBIN 10.2 GM/dL (10.7-15.3); MCH 29.2 pg (25.7-33.7); MCHC 33.4 g/dl (32.0-36.0); MEAN CELL VOLUME 87.4 fl (80-96); MEAN PLT VOLUME 7.9 fl (7.5-11.1); PLATELET COUNT 252 10^3/uL (134-434); RBC 3.49 M/mm3 (3.60-5.2); RDW 14.3 % (11.6-15.6); WHITE BLOOD COUNT 5.4 K/mm3 (4.0-10.0)
[2022-01-25 13:50] LABS: ALBUMIN 3.3 g/dl (3.4-5.0); CALCIUM 8.5 mg/dL (8.5-10.1)
[2022-01-25 13:54] LABS: CREATININE 0.5 mg/dL (0.55-1.3)
[2022-01-25 13:55] LABS: BILIRUBIN,TOTAL 0.4 mg/dL (0.2-1)
[2022-01-25] MEDS: NICOTINE 10 MG CARTRIDGE (INHALER) IH PRN ×2 (14:13→14:17)
[2022-01-25] MEDS: DICYCLOMINE HCL 10 MG CAPSULE PO PRN (15:05)
[2022-01-25] MEDS: cloNIDine HCL 0.1 MG TABLET PO PRN ×2 (15:05→18:22)
[2022-01-25 15:18] LABS: BLOOD UREA NITROGEN 11.9 mg/dL (7-18)
[2022-01-25] MEDS: THIAMINE HCL 100 MG TABLET (FP) PO SCH (23:15)
[2022-01-26] MEDS: cloNIDine HCL 0.1 MG TABLET PO PRN ×3 (06:05→17:07)
[2022-01-26] MEDS: METHOCARBAMOL 500 MG TABLET PO PRN ×2 (06:07→17:08)
[2022-01-26] MEDS: hydrOXYzine PAMOATE 25 MG CAPSULE (FP) PO PRN ×2 (06:07→17:09)
[2022-01-26] MEDS ORDERED: methaDONE HCL 10 MG TABLET (FOR DETOX USE ONLY) PO ONE (10:00)
[2022-01-26] MEDS ORDERED: COLLOIDAL OATMEAL 1 BAR EACH TP PRN (10:01)
[2022-01-26] MEDS: PRENATAL VITAMINS W/ FOLIC ACID TABLET (FP) PO SCH (10:42)
[2022-01-26] MEDS: NICOTINE 10 MG CARTRIDGE (INHALER) IH PRN ×2 (10:47→17:10)
[2022-01-26] MEDS ORDERED: BACLOFEN 10 MG TABLET (FP) PO ONE (11:00)
[2022-01-26] MEDS ORDERED: DICYCLOMINE HCL 20 MG TABLET PO ONE (11:00)
[2022-01-26] MEDS: THIAMINE HCL 100 MG TABLET (FP) PO SCH (23:46)
[2022-01-27] MEDS: hydrOXYzine PAMOATE 25 MG CAPSULE (FP) PO PRN ×4 (06:37→23:07)
[2022-01-27] MEDS: METHOCARBAMOL 500 MG TABLET PO PRN ×2 (06:37→12:52)
[2022-01-27] MEDS ORDERED: methaDONE HCL 10 MG TABLET (FOR DETOX USE ONLY) ONE (08:58)
[2022-01-27] MEDS: PRENATAL VITAMINS W/ FOLIC ACID TABLET (FP) PO SCH (10:12)
[2022-01-27] MEDS: NICOTINE 10 MG CARTRIDGE (INHALER) IH PRN (10:28)
[2022-01-27] MEDS: NICOTINE 14 MG/24 HOURS TOPICAL PATCH TD SCH (11:37)
[2022-01-27] MEDS: cloNIDine HCL 0.1 MG TABLET PO PRN ×3 (12:52→23:08)
[2022-01-27] MEDS ORDERED: BACLOFEN 10 MG TABLET (FP) PO ONE (14:43)
[2022-01-27 16:08] LABS: SARS-CoV-2 NAA Not Detected (Not Detected)
[2022-01-27] MEDS: BACLOFEN 10 MG TABLET (FP) PO SCH (23:07)
[2022-01-27] MEDS: THIAMINE HCL 100 MG TABLET (FP) PO SCH (23:07)
[2022-01-28] MEDS: cloNIDine HCL 0.1 MG TABLET PO PRN (06:04)
[2022-01-28] MEDS: BACLOFEN 10 MG TABLET (FP) PO SCH ×2 (06:04→13:06)
[2022-01-28 09:30] VITALS: BP 102/62; PULSE 89; TEMP 96.9
[2022-01-28] MEDS ORDERED: methaDONE HCL 10 MG TABLET (FOR DETOX USE ONLY) PO ONE (10:00)
[2022-01-28] MEDS: PRENATAL VITAMINS W/ FOLIC ACID TABLET (FP) PO SCH (10:23)
[2022-01-28] MEDS: NICOTINE 14 MG/24 HOURS TOPICAL PATCH TD SCH (10:25)
[2022-01-28] MEDS: DICYCLOMINE HCL 10 MG CAPSULE PO PRN (10:25)
== END 2022-01-28 03:00 | disposition home or self-care (01) | DRG 773 ==
LOC: YASAS 18:50 → Y6N 23:47
PROVIDERS: ADMIT Allergy & Immunology; ATTEND Surgery
PROC: HZ2ZZZZ Detoxification Services for Substance Abuse Treatment (ICD-10-PCS; principal; 2022-01-24)
DX: F11.23 Opioid dependence with withdrawal (principal); F12.20 Cannabis dependence, uncomplicated; F17.210 Nicotine dependence, cigarettes, uncomplicated; G89.29 Other chronic pain; R51.9 Headache, unspecified; Z28.310 Unvaccinated for COVID-19; Z98.84 Bariatric surgery status
CPT/HCPCS: 36415; 80053; 81025; 85027; 86780; 87811; C9803-CS; J0475; J0735; U0003; U0005

== ENCOUNTER 2022-01-28 11:49 | Emergency (ER) | payer OTHER ==
[2022-01-28 12:22] VITALS: BP 112/66; PULSE 65; TEMP 97.9; BMI 23.3
== END 2022-01-28 20:10 | disposition left against medical advice (07) ==
LOC: JERFT 11:49
DX: M54.50 Low back pain, unspecified (principal)
CPT/HCPCS: 99281-25

== ENCOUNTER 2022-11-20 17:53 | Emergency (ER) | payer OTHER ==
[2022-11-20 18:14] VITALS: BP 111/77; PULSE 113; RESP 20; BMI 26.6
[2022-11-20] MEDS ORDERED: IBUPROFEN 600 MG TABLET (FP) PO ONE ×2 (20:05→20:07)
== END 2022-11-20 20:14 | disposition home or self-care (01) ==
LOC: JER 17:53
DX: T40.2X1A Poisoning by other opioids, accidental (unintentional), initial encounter (principal)
CPT/HCPCS: 99283-25

== ENCOUNTER 2024-07-16 17:32 | Emergency (ER) | payer OTHER ==
[2024-07-16 17:55] VITALS: BMI 19.8
[2024-07-16] MEDS ORDERED: ACETAMINOPHEN 500 MG TABLET (FP) ONE (17:59)
[2024-07-16] MEDS: ACETAMINOPHEN 500 MG TABLET (FP) PO ONE (18:05)
[2024-07-16] MEDS ORDERED: ALPRAZolam 0.25 MG TABLET ONE (18:43)
[2024-07-16] MEDS: ALPRAZolam 2 MG TABLET PO ONE (18:50)
[2024-07-16 21:19] VITALS: BP 103/65; PULSE 68; RESP 16; TEMP 97.9
[2024-07-16] MEDS ORDERED: IBUPROFEN 400 MG TABLET (FP) PO ONE (22:01)
[2024-07-16] MEDS: IBUPROFEN 400 MG TABLET (FP) PO ONE (22:04)
== END 2024-07-16 22:14 | disposition home or self-care (01) ==
LOC: FER 17:32
DX: S00.03XA Contusion of scalp, initial encounter (principal); M54.2 Cervicalgia; M25.572 Pain in left ankle and joints of left foot; K08.89 Other specified disorders of teeth and supporting structures; Y04.0XXA Assault by unarmed brawl or fight, initial encounter
CPT/HCPCS: 70450-TC; 70486-TC; 72125-TC; 73610-TC-LT-FY; 84703; 99284-25